=== PATIENT | male | born 1945 | race Caucasian/White ===

== ENCOUNTER 2019-12-03 10:15 | Emergency (ER) | payer MEDICARE, SELFPAY ==
--- NOTE | ~2019-12-03 | CT_ITS ---
EXAMINATION: CT abdomen pelvis wo con DATE: 12/03/2019 11:10 INDICATION: Left flank pain. Dysuria. TECHNIQUE: Computed tomography (CT) of the abdomen and pelvis was performed without intravenous contr ast. Automated exposure control and iterative reconstruction technique were employed. The dose-length product was 1175.56 mGy-cm. COMPARISON: CT abdomen and pelvis 10/26/2017 FINDINGS: The visualized portions of the lung bases demonstrate mild atelectasis on the left. No pleu ral effusion. The heart size is normal. There are coronary artery calcifications. No pericardial effu deborah. There are pacer wires in right atrium and right ventricle. The liver and spleen are normal. The re are changes of cholecystectomy. The pancreas, adrenal glands, and left kidney are normal. There is a 4 mm stone in right kidney. There is a 14 mm stone in right kidney with focal parenchymal volume l oss. There are no dilated loops of bowel. The appendix is not visualized. There is calcified atherosc lerosis of the aorta and many of the other arteries. There is a small sliding hiatal hernia. There is a diverticulum of the third portion of the duodenum. There are no pathologically enlarged lymph node s. There is no free intraperitoneal fluid. There is moderate lumbar spondylosis. There is a hemangiom a in L3 vertebral body. There are chronic compression fractures of T10 and L1. IMPRESSION: 1. Nonobstructing right kidney stones. Reviewed, dictated and finalized at location A.
[2019-12-03 10:18] VITALS: BP 170/87; PULSE 86; RESP 19; TEMP 36.7; O2SAT 99
[2019-12-03 10:37] LABS: Basophils Percent Auto 0.3 % (0.2-1.2); Eosinophils Absolute Auto 0.4 K/mm3 (0-0.3); Eosinophils Percent Auto 4.8 % (0-4.4); Hematocrit 43.1 % (42.0-52.0); Hemoglobin 13.8 g/dL (14.0-18.0); Immature Granulocyte Absolute 0.04 K/mm3 (0.00-0.031); Immature Granulocyte Percent A 0.5 % (0-0.5); Lymphocytes Absolute Auto 1.57 K/mm3 (0.9-3.2); Lymphocytes Percent Auto 20.6 % (18.3-44.2); Mean Corpuscular Hemoglobin 29.6 pg (26-34); Mean Corpuscular Volume 92.3 fl (80-100); Mean Platelet Volume 11.3 fl (7.4-10.4); Monocytes Absolute Auto 0.8 K/mm3 (0.1-0.6); Neutrophils Absolute Auto 4.9 K/mm3 (1.3-6.7); Neutrophils Percent Auto 63.8 % (45.5-73.1); Platelet Count Result 288 k/mm3 (150-375); Red Blood Count 4.67 M/mm3 (4.6-6.20); Red Cell Distribution Width 14.2 % (11.5-14.5); White Blood Count 7.6 K/mm3 (4.5-10.0)
--- NOTE | 2019-12-03 10:42 | ED.BACK ---
HPI - Back Pain/Injury General Chief Complaint: Back Pain/Injury Stated Complaint: L FLANK/RIB PAIN Time Seen by Provider: 12/03/19 10:17 Source: patient Mode of arrival: ambulatory Limitations: no limitations History of Present Illness HPI Narrative: This is a 74-year-old male that presents the emergency department for left flank pain x1 week. Reports it has been constant, is worse with movement. Also reports dysuria. Reports history of kidney stones. Denies fever, abdominal pain, nausea, vomiting, hematuria, weakness or numbness. Related Data Home Medications Medication Instructions Recorded Confirmed atorvastatin 12/03/19 gemfibrozil mg 12/03/19 lisinopril 12/03/19 metoprolol tartrate 12/03/19 omeprazole 12/03/19 tamsulosin mg PO 12/03/19 warfarin 12/03/19 Allergies Allergy/AdvReac Type Severity Reaction Status Date / Time codeine AdvReac Mild broke out Verified 12/03/19 10:29 and sweat Review of Systems Review of Systems: Narrative: CONSTITUTIONAL: Denies fever GASTROINTESTINAL: Denies abdominal pain, nausea, vomiting GENITOURINARY: Reports dysuria. Denies hematuria. MUSCULOSKELETAL: Reports back pain NEUROLOGIC: Denies numbness, or weakness. All systems reviewed & are unremarkable except as noted in HPI and below PMFSH Past Medical History Medical History (Updated 12/03/19 @ 12:15 by Zuleyma Grace PA-C) History of coronary artery disease History of gastroesophageal reflux (GERD) History of hyperlipidemia History of hypertension Surgical History Surgical History (Updated 12/03/19 @ 10:44 by Zuleyma Grace PA-C) History of coronary artery bypass graft Social History Social History Gender identity (if verbalized by the patient): Male Exam Narrative: Exam Narrative: GENERAL: Well-appearing, well-nourished, and in no acute distress. HEAD: Normocephalic, atraumatic. EYES: EOMI. CHEST: Clear to auscultation. No respiratory distress. No wheezes rales or rhonchi HEART: Regular rate and rhythm. No murmur heard. Normal peripheral pulses. ABDOMEN: Soft, nontender, nondistended, normal active bowel sounds. No CVA tenderness BACK: No midline spinal tenderness EXTREMITIES: Normal range of motion. No edema. Strength equal in bilateral lower extremities (5/5) SKIN: Warm, dry, no rash. NEURO: No focal deficits. Alert and oriented x3. Normal gait PSYCH: Normal mood and affect Course Vital Signs Vital signs: Vital Signs Temperature 98.1 F 12/03/19 10:18 Pulse Rate 86 12/03/19 10:18 Respiratory Rate 19 12/03/19 10:18 Blood Pressure 170/87 H 12/03/19 10:18 Pulse Oximetry 99 12/03/19 10:18 Temperature 98.1 F 12/03/19 10:18 Pulse Rate 86 12/03/19 10:18 Respiratory Rate 19 12/03/19 10:18 Blood Pressure 170/87 H 12/03/19 10:18 Pulse Oximetry 99 12/03/19 10:18 MDM - Back Pain/Injury MDM Narrative Medical decision making narrative: Patient presents the emergency department for left-sided flank pain x1 week. Also reported some discomfort with urination. Patient is afebrile and nontoxic-appearing. CBC is without leukocytosis. Metabolic panel without acute findings other than elevation in blood glucose to 237. UA without evidence of infection. CT the abdomen pelvis shows some nonobstructing right kidney stones. Patient updated on case findings. He was instructed to rest, use ice/heat and take [id number] pain medication as needed. He is to follow-up with primary care doctor. He was given warnings to return to the ER Lab Data Attestation: I reviewed the patient's lab results. Result diagrams: 12/03/19 10:32 12/03/19 10:32 Labs: Lab Results 12/03/19 12/03/19 12/03/19 Range/Units 10:32 10:32 10:36 WBC 7.6 (4.5-10.0) K/mm3 RBC 4.67 (4.6-6.20) M/mm3 Hgb 13.8 L (14.0-18.0) g/dL Hct 43.1 (42.0-52.0) % MCV 92.3 (80-100) fl MCH 29.6 (26-34) pg MCHC 32.0 (32-36) g/dl
[2019-12-03 10:45] LABS: Add Urine Microscopic? YES; Appearance Urine Clear (Clear); Bacteria Urine Trace /hpf; Bilirubin Urine Negative (Negative); Blood Urine Negative (Negative); Color Urine Straw (Yellow); Glucose Urine UA Negative (Negative); Ketones Urine Negative (Negative); Leukocyte Esterase Ur Trace LEU/UL (Negative); Nitrate Urine Negative (Negative); Protein Urine Negative (Negative); RBC Urine 0-2 /hpf (0-2); Specific Grav Ur 1.014 (1.001-1.035); Urobilinogen Urine Negative mg/dL (<2.0); WBC Urine 0-3 /hpf
[2019-12-03 10:50] LABS: Blood Urea Nitrogen 18 mg/dL (9-20); Carbon Dioxide 29 mmol/L (22-30); Chloride 101 mmol/L (98-107); Estimated Glomerular Filt Rate > 60; Glucose 237 mg/dL (75-110); Potassium 4.4 mmol/L (3.4-5.0); Sodium 136 mmol/L (137-145)
[2019-12-03] MEDS: ACETAMINOPHEN 500 MG TABLET 1000 MG PO (12:35)
[2019-12-03 12:42] VITALS: BP 152/68; PULSE 78; RESP 16; O2SAT 97
== END 2019-12-03 12:43 | disposition home or self-care (01) ==
PROVIDERS: Physician Assistant; Emergency Provider Emergency Medicine
DX: M54.5 Low back pain (principal); I25.10 Atherosclerotic heart disease of native coronary artery without angina pectoris; K21.9 Gastro-esophageal reflux disease without esophagitis; E78.5 Hyperlipidemia, unspecified; I10 Essential (primary) hypertension; Z95.1 Presence of aortocoronary bypass graft; N20.0 Calculus of kidney; Z87.442 Personal history of urinary calculi
CPT/HCPCS: 36415; 74176; 80048; 81001; 85025; 99284; A9270

== ENCOUNTER 2020-08-12 09:17 | Outpatient (CLI) | payer MEDICARE, SELFPAY ==
--- NOTE | ~2020-08-12 | XR_ITS ---
EXAMINATION: XR_CERV2-3V_CR EXAM DATE: 08/12/2020 09:45 INDICATION: Intractable headache, neck pain, dizziness. TECHNIQUE: Cervical spine frontal, lateral, lateral swimmers, and open-mouth odontoid projections. C omparison is made to prior examination from 12/14/2013. FINDINGS: There are large anteriorly base bridging endplate osteophytes. There is moderate disc dise ase at C5-6. The odontoid process is intact. The lateral masses of C1 line up with C2. Prevertebral soft tissue and pre-dens space are within normal limits. At least moderate cervical arthropathy. Mild cervical levoscoliosis. Pacemaker and sternotomy wires. IMPRESSION: Moderate cervical spondylosis. Mild levoscoliosis. Reviewed, dictated and finalized at location B. WELL SERVICES FIELD SUPERVISOR
--- NOTE | ~2020-08-12 | US_ITS ---
EXAMINATION: US carotid duplex BI DATE: 08/12/2020 10:04 INDICATION: Subjective visual disturbance. Vertigo. Carotid artery atherosclerosis. Headaches and di zziness TECHNIQUE: Grayscale, color Doppler, and pulsed Doppler images of the cervical carotid arteries were obtained. The degree of vessel stenosis is placed in one of the following categories: normal, <50%, 5 0-69%, >=70% but less than near-occlusion, near-occlusion, or total occlusion. Note that percent sten osis relative to normal distal artery lumen diameter is indirectly measured from velocity measurement s as described by Holger, et al. Radiology 2003; 229:340-346. COMPARISON: None. FINDINGS: RIGHT: The right common carotid artery (CCA) peak systolic velocity (PSV) is 55 cm/s. The right internal car otid artery (ICA) PSV is 55 cm/s. The right ICA end-diastolic velocity (EDV) is 17 cm/s. The right IC A/CCA PSV ratio is 1.0. Grayscale and color Doppler images yield an estimate of <50% diameter reducti on from plaque in the ICA. The external carotid artery (ECA) PSV is 98 cm/s. There is antegrade flow in the right vertebral artery. LEFT: The left CCA PSV is 67 cm/s. The left ICA PSV is 50 cm/s. The left ICA EDV is 9 cm/s. The left ICA/CC A PSV ratio is 0.8. Grayscale and color Doppler images yield an estimate of <50% diameter reduction f rom plaque in the ICA. The ECA PSV is 114 cm/s. There is antegrade flow in the left vertebral artery. IMPRESSION: 1. <50% stenosis in the right internal carotid artery. 2. <50% stenosis in the left internal carotid artery. Reviewed, dictated and finalized at location A. IR SERVICE CLERK
== END 2020-08-12 09:18 | disposition home or self-care (01) ==
DX: R51.9 Headache, unspecified (principal); M54.2 Cervicalgia; R42 Dizziness and giddiness; M47.812 Spondylosis without myelopathy or radiculopathy, cervical region; M41.82 Other forms of scoliosis, cervical region; I65.23 Occlusion and stenosis of bilateral carotid arteries
CPT/HCPCS: 72040; 93880

== ENCOUNTER 2021-06-25 13:03 | Emergency (ER) | payer MEDICARE, SELFPAY ==
[2021-06-25] VITALS (21 sets, daily range): BP systolic 141–196; BP diastolic 63–91; PULSE 65–105; RESP 13–23; TEMP 36.3; O2SAT 94–98
--- NOTE | ~2021-06-25 | CT_ITS ---
EXAMINATION: CTA chest PE protocol DATE: 06/25/2021 17:10 INDICATION: Shortness of breath TECHNIQUE: Computed tomography angiography (CTA) of the chest was performed with 100 mL Omnipaque-350 intravenous contrast timed to evaluate the pulmonary arteries. Coronal maximum intensity projection 3D-reconstructions were created by the technologist. The dose-length product (DLP) was 764.68 mGy-cm. Automated exposure control and iterative reconstruction technique were employed. COMPARISON: 09/28/2018 FINDINGS: The pulmonary arteries are well-opacified. No pulmonary embolism is identified. There is mi ld dependent atelectasis. No pleural effusion or pneumothorax is identified. Cardiomegaly is noted. T here is calcified coronary artery atherosclerosis. A dual-lead cardiac pacemaker of the left chest wa ll ends with leads in expected locations. There is a small sliding hiatal hernia. The gallbladder is surgically absent. There is mild thoracic spondylosis. IMPRESSION: 1. No pulmonary embolus identified. 2. Mild atelectasis. Reviewed, dictated and finalized at location F. MATION CLERK
--- NOTE | ~2021-06-25 | XR_ITS ---
EXAMINATION: XR chest 2V DATE: 06/25/2021 13:23 INDICATION: Chest pain. TECHNIQUE: Frontal and lateral views of the chest were obtained. COMPARISON: Chest 2 views 09/28/2018, CT abdomen and pelvis 12/03/2019 FINDINGS: There are airspace opacities in left lower lung zone. No pleural effusion or pneumothorax. The heart size is normal. Median sternotomy wires and mediastinal surgical clips are seen, likely fro m prior coronary artery bypass grafting. There is a left chest wall pacer with leads in the right atr ium and right ventricle. There is mild chronic anterior wedging of lower thoracic vertebral bodies. IMPRESSION: 1. Airspace opacities in left lower lung zone, consistent with atelectasis versus pneumonia. Reviewed, dictated and finalized at location A. POOL IMPRESSION: 1. Airspace opacities in left lower lung zone, consistent with atelectasis vers us pneumonia.
--- NOTE | 2021-06-25 13:04 | ECG_ITS ---
Measurements Intervals [place] Rate: 85 P: 102 MO: 217 QRS: 85 QRSD: 168 T: -81 QT: 398 QTc: 475 Interpretive Statements ATRIAL SENSE- ELECTRONIC VENTRICULAR PACEMAKER BASELINE ARTIFACT- I, III, AVR, AVL, AVF NO FURTHER INTERPRETATION IS POSSIBLE ATYPICAL ECG Electronically Signed On 06-25-2021 18:21:10 DIET COUNSELOR by Jan Tapia D.O.
[2021-06-25 13:23] LABS: Basophils Percent Auto 0.2 % (0.2-1.2); Eosinophils Absolute Auto 0.2 K/mm3 (0-0.3); Eosinophils Percent Auto 1.8 % (0-4.4); Hematocrit 43.3 % (42.0-52.0); Hemoglobin 14.5 g/dL (14.0-18.0); Immature Granulocyte Absolute 0.04 K/mm3 (0.00-0.031); Immature Granulocyte Percent A 0.5 % (0-0.5); Lymphocytes Absolute Auto 1.61 K/mm3 (0.9-3.2); Lymphocytes Percent Auto 19.5 % (18.3-44.2); Mean Corpuscular HGB Conc 33.5 g/dl (32-36); Mean Corpuscular Hemoglobin 30.8 pg (26-34); Mean Corpuscular Volume 91.9 fl (80-100); Mean Platelet Volume 10.5 fl (7.4-10.4); Monocytes Absolute Auto 0.8 K/mm3 (0.1-0.6); Monocytes Percent Auto 9.8 % (2.6-8.5); Neutrophils Absolute Auto 5.6 K/mm3 (1.3-6.7); Neutrophils Percent Auto 68.2 % (45.5-73.1); Platelet Count Result 269 k/mm3 (150-375); Red Blood Count 4.71 M/mm3 (4.6-6.20); Red Cell Distribution Width 13.4 % (11.5-14.5); White Blood Count 8.2 K/mm3 (4.5-10.0)
[2021-06-25 13:34] LABS: INR 1.6; Prothrombin Time 18.3 Seconds (11.1-14.7)
[2021-06-25 13:35] LABS: Partial Thromboplastin Time 29.2 SECONDS (22.3-36.8)
[2021-06-25 13:39] LABS: Alanine Aminotransferase 37 U/L (4-50); Albumin Level 4.3 g/dL (3.5-5.1); Alkaline Phosphatase 106 U/L (38-126); Anion Gap 10 mmol/L (8-16); Aspartate Amino Transferase 40 U/L (17-59); Bilirubin,Total 0.4 mg/dL (0.2-1.3); Blood Urea Nitrogen 14 mg/dL (9-20); Calcium 9.4 mg/dL (8.4-10.2); Carbon Dioxide 28 mmol/L (22-30); Chloride 99 mmol/L (98-107); Estimated CRCL calculation 98 ml/min; Estimated Glomerular Filt Rate > 60; Glucose 161 mg/dL (65-110); Lipase 183 U/L (23-300); Sodium 137 mmol/L (137-145)
[2021-06-25 13:51] LABS: Troponin I 0.021 ng/mL (0.000-0.034)
--- NOTE | 2021-06-25 14:22 | ED.CHESTPAIN ---
HPI - Chest Pain General Chief Complaint: Chest Pain Stated Complaint: chest pain Time Seen by Provider: 06/25/21 14:18 Source: patient Mode of arrival: ambulatory Limitations: no limitations History of Present Illness HPI narrative: Patient is a 75-year-old male complaining of chest pain, midsternal, tightness, was 6 out of 10, currently has no pain accompanied by shortness of breath that started today. Patient states that it episode of chest pain 3 days ago but resolved on its own today it was accompanied by shortness of breath, I cannot catch my breath . Patient states that he has been having body aches, cough and chills for the past few days. Patient states that he is vaccinated from [facility] [employer]. Related Data Home Medications Medication Instructions Recorded Confirmed lisinopril 10 mg DAILY 12/03/19 04/25/21 metoprolol tartrate 12.5 mg BID 12/03/19 04/25/21 omeprazole 20 mg DAILY 12/03/19 04/25/21 tamsulosin 0.4 mg PO DAILY 12/03/19 04/25/21 aspirin 81 mg tablet,delayed 81 mg PO DAILY 04/25/21 04/25/21 release atorvastatin 40 mg tablet 40 mg PO DAILY 04/25/21 04/25/21 sitagliptin 100 mg tablet 100 mg PO DAILY 04/25/21 04/25/21 warfarin 2 mg tablet 6 PO DAILY 04/25/21 04/25/21 ascorbic acid (vitamin C) [Vitamin 250 mg PO BID 06/25/21 C] omega-3 fatty acids-vitamin E 1,000 DAILY 06/25/21 [Fish Oil] warfarin 8 mg PO DAILY 06/25/21 Allergies Allergy/AdvReac Type Severity Reaction Status Date / Time codeine AdvReac Mild broke out Verified 04/25/21 14:13 and sweat Review of Systems Review of Systems: All systems reviewed & are unremarkable except as noted in HPI and below Constitutional: Constitutional: Denies excessive sweating, Denies fatigue, Denies fever(s), Denies headache(s), Denies lethargy, Denies malaise, Denies weakness and Denies weight loss Eyes: Eyes: Denies blurry vision, Denies change in vision and Denies loss of vision ENT: Denies dizziness, Denies ear discharge, Denies headache(s), Denies lip swelling, Denies epistaxis, Denies nasal congestion, Denies neck pain, Denies throat swelling and Denies tongue swelling Cardiovascular: Cardiovascular: Denies diaphoresis, Denies rapid heart rate, Denies edema, Denies irregular heart rhythm, Denies lightheadedness, Denies palpitations, Denies dyspnea and Denies dyspnea on exertion Respiratory: Respiratory: Denies chest congestion, Denies hemoptysis, Denies dyspnea and Denies dyspnea on exertion Gastrointestinal: Gastrointestinal: Denies abdominal pain, Denies melena, Denies hematochezia, Denies diarrhea, Denies nausea, Denies vomiting and Denies hematemesis Musculoskeletal: Musculoskeletal: Denies abnormal gait, Denies deformity, Denies joint swelling, Denies limited range of motion, Denies neck pain and Denies numbness Neurologic: Denies Abnormal speech present, Denies abnormal gait, Denies confusion, Denies dizziness, Denies headache(s), Denies focal weakness, Denies loss of vision, Denies numbness, Denies Other visual disturbances, Denies Sensory deficit (Neuro) and Denies weakness Psychiatric: Psychiatric: Denies confusion, Denies depression, Denies auditory hallucinations, Denies homicidal ideation and Denies suicidal ideation Endocrine: Endocrine: Denies cold intolerance, Denies excessive sweating, Denies fatigue, Denies heat intolerance and Denies palpitations Hematologic/Lymphatic: Hematologic/Lymphatic: Denies easy bleeding and Denies easy bruising Allergic/Immunologic: Allergic/Immunologic: Denies lip swelling, Denies throat swelling and Denies tongue swelling PMFSH Past Medical History Medical History BMI 31.0-31.9,adult Coronary artery disease Diarrhea Essential hypertension History of coronary artery disease History of gastroesophageal reflux (GERD) History of hyperlipidemia History of hypertension Macular degeneration Mixed hyperlipidemia Type 2 diabetes mellitus without complication
[2021-06-25] MEDS: ASPIRIN 81 MG CHEWABLE TABLET 324 MG PO (15:15)
[2021-06-25 16:28] LABS: Lactic Acid Reflex 0.9 mmol/L (0.7-2.1)
[2021-06-25 16:42] LABS: Troponin I 0.028 ng/mL (0.000-0.034)
--- NOTE | 2021-06-25 19:30 | PM.SD2 ---
Same Day Admit/Disch: HPI History of Present Illness Chief complaint: Chest Pain Narrative: This is a pleasant 75-year-old male with history of coronary artery disease, atrial fibrillation, hypertension, diabetes, GERD, and benign prostatic hyperplasia presented to the emergency department for evaluation of chest pain. This morning while doing nothing in particular he developed midsternal chest discomfort, perhaps a tightness sensation, associated with mild shortness of breath. He took a nitroglycerin but that did not seem to help. He goes on to say that he had a similar episode 3 days ago and the nitroglycerin helped at that time. With further questioning patient mentions that he has been having body aches, chills, and nonproductive cough. He did receive the COVID vaccination but was exposed to COVID last week. In fact his SARS-CoV-2 by PCR did come back positive. Three troponins were mildly elevated but still well within the normal limits. He does have a pacemaker thus making it difficult to interpret his EKG. I agree with the patient that his symptoms are unlikely to be cardiac related and are more likely related to COVID. The patient requested to be discharged home and I was okay with that as long as he had close follow-up with his cabin agent at [facility]. For some reason he was made to sign out against medical advice in the emergency department before I could get things arranged. [facility] Past Medical History Medical History (Updated 06/29/21 @ 23:53 by Carline Lawrence PA-C) Benign prostatic hyperplasia BMI 31.0-31.9,adult Coronary artery disease Diarrhea Essential hypertension History of coronary artery disease History of gastroesophageal reflux (GERD) History of hyperlipidemia History of hypertension Macular degeneration Mixed hyperlipidemia Type 2 diabetes mellitus without complications Surgical History Surgical History History of coronary artery bypass graft Family History Family History (Updated 06/29/21 @ 23:53 by Carline Lawrence PA-C) Other Diabetes mellitus Heart disease Hypertension Social History Social History (Updated 06/29/21 @ 23:53 by Carline Lawrence PA-C) Social History: Resides in [place] with his . Retired. Former smoker. Consumes alcohol socially and in moderation. No illicit substance use. Code status: Full code. Same Day Admit/Disch: Med Pre-admit Medications Home Medications Medication Instructions Recorded Confirmed Type lisinopril 10 mg DAILY 12/03/19 04/25/21 History metoprolol tartrate 12.5 mg BID 12/03/19 04/25/21 History omeprazole 20 mg DAILY 12/03/19 04/25/21 History tamsulosin 0.4 mg PO DAILY 12/03/19 04/25/21 History aspirin 81 mg tablet,delayed 81 mg PO DAILY 04/25/21 04/25/21 History release atorvastatin 40 mg tablet 40 mg PO DAILY 04/25/21 04/25/21 History sitagliptin 100 mg tablet 100 mg PO DAILY 04/25/21 04/25/21 History warfarin 2 mg tablet 6 PO DAILY 04/25/21 04/25/21 History ascorbic acid (vitamin C) [Vitamin 250 mg PO BID 06/25/21 History C] omega-3 fatty acids-vitamin E 1,000 DAILY 06/25/21 History [Fish Oil] warfarin 8 mg PO DAILY 06/25/21 History azithromycin 250 mg tablet See Rx Instructions PO .COMPLEX #6 06/26/21 Rx tablet Exam Narrative: General: Mildly ill-appearing male sitting up in bed. Weight: 100 kg. BMI: 29.9. HEENT: PERRL, EOMI. Sclerae anicteric. Oral mucosa moist. Oropharynx is mildly erythematous. Neck: Supple. No JVD or adenopathy. Respiratory: Respirations are nonlabored and he is speaking in full sentences. Lungs are clear to auscultation bilaterally. Cardiovascular: Regular rate and rhythm with S1-S2. Chest: Mild reproducible tenderness to palpation over the lower anterior chest, just left of center. Gastrointestinal: Abdomen is soft, nontender, and nondistended with positive bowel sounds. Skin: Warm and dry. No rash or lesio
--- NOTE | 2021-06-25 19:40 | PC.NURSE ---
Assumed care of pt at this time. Pt alert and upright on stretcher, denies pain. Pt updated on POC.
[2021-06-25 19:46] LABS: EDCOVIDSCREEN Positive (Negative)
[2021-06-25 19:48] LABS: Troponin I 0.032 ng/mL (0.000-0.034)
[2021-06-25 20:15] LABS: Glucose Point of Care 127 mg/dl (65-105)
== END 2021-06-25 21:09 | disposition left against medical advice (07) ==
LOC: ANHED 18:12 → ANH3MEDSUR 20:59
PROVIDERS: Internal Medicine; Emergency Provider Emergency Medicine; PCP Family Medicine
DX: U07.1 COVID-19 (principal); R07.89 Other chest pain; I25.10 Atherosclerotic heart disease of native coronary artery without angina pectoris; I10 Essential (primary) hypertension; E78.5 Hyperlipidemia, unspecified; H35.30 Unspecified macular degeneration; E78.2 Mixed hyperlipidemia; I25.2 Old myocardial infarction; E11.9 Type 2 diabetes mellitus without complications; K21.9 Gastro-esophageal reflux disease without esophagitis; Z79.82 Long term (current) use of aspirin; Z95.1 Presence of aortocoronary bypass graft; Z87.891 Personal history of nicotine dependence; Z95.0 Presence of cardiac pacemaker; Z79.01 Long term (current) use of anticoagulants; Z79.84 Long term (current) use of oral hypoglycemic drugs
CPT/HCPCS: 36415; 71046; 71275; 80053; 82948; 83605; 83690; 84484; 85025; 85610; 85730; 87040; 87426; 93005; 99284; A9270; C9803; Q9967

== ENCOUNTER 2021-07-13 10:00 | Outpatient (CLI) | payer MEDICARE, SELFPAY ==
--- NOTE | ~2021-07-13 | XR_ITS ---
EXAMINATION: XR chest 2V 07/13/2021 10:18 INDICATION: Covid infection PROCEDURE: 2 view chest COMPARISON: Comparison to multiple prior studies sequentially, with oldest reviewed study dated 07/18. FINDINGS: The lungs are clear. The cardiomediastinal silhouette is within normal limits. There are no pleural effusions. There is no pneumothorax suspected. There is chronic left basilar atelectasis /scarring. Pacemaker leads are stable. Status post median sternotomy for CABG. IMPRESSION: 1: NO ACUTE CARDIOPULMONARY DISEASE. Reviewed, dictated and finalized at location B. IMPLEMENTATION SPECIALIST
== END 2021-07-13 10:01 | disposition home or self-care (01) ==
LOC: ANHIMG 10:02
PROVIDERS: PCP Family Medicine; Visit Provider Nurse Practitioner Family
DX: R06.02 Shortness of breath (principal); U07.1 COVID-19
CPT/HCPCS: 71046

== ENCOUNTER 2021-12-14 14:41 | Emergency (ER) | payer MEDICARE, SELFPAY ==
--- NOTE | ~2021-12-14 | XR_ITS ---
EXAMINATION: XR chest 2V Exam Date/Time: 12/14/2021 15:20 CDT HISTORY: BURNING MEDIAL CHEST SENSATION, SOB, HX HTN Comparison: 07/13/2021. RESULT: Lines, tubes, and devices: Left chest pacer with intact leads. Intact sternotomy wires. Lungs and pleura: Clear. Cardiomediastinal silhouette: Stable cardiomediastinal silhouette. Other: No acute osseous or upper abdominal finding. IMPRESSION: No acute cardiopulmonary process. Reviewed, dictated and finalized at location K.
--- NOTE | 2021-12-14 14:44 | ECG_ITS ---
Measurements Intervals [place] Rate: 75 P: 37 MI: 235 QRS: 110 QRSD: 172 T: 137 QT: 433 QTc: 484 Interpretive Statements ELECTRONIC VENTRICULAR PACEMAKER ABNORMAL RHYTHM ECG COMPARED TO ECG 06/25/2021 13:08:56 NO SIGNIFICANT CHANGES Electronically Signed On 12-14-2021 22:48:19 CDT by Anaya Conrad M.D.
[2021-12-14 14:58] VITALS: BP 173/44; PULSE 74; RESP 16; TEMP 36.4; O2SAT 97
[2021-12-14 15:00] LABS: Basophils Percent Auto 0.1 % (0.2-1.2); Eosinophils Absolute Auto 0.2 K/mm3 (0-0.3); Eosinophils Percent Auto 2.2 % (0-4.4); Hemoglobin 14.5 g/dL (14.0-18.0); Immature Granulocyte Absolute 0.02 K/mm3 (0.00-0.031); Immature Granulocyte Percent A 0.2 % (0-0.5); Lymphocytes Absolute Auto 1.75 K/mm3 (0.9-3.2); Lymphocytes Percent Auto 18.5 % (18.3-44.2); Mean Corpuscular HGB Conc 32.2 g/dl (32-36); Mean Corpuscular Hemoglobin 29.7 pg (26-34); Mean Corpuscular Volume 92.2 fl (80-100); Mean Platelet Volume 10.8 fl (7.4-10.4); Monocytes Absolute Auto 0.9 K/mm3 (0.1-0.6); Monocytes Percent Auto 9.9 % (2.6-8.5); Neutrophils Absolute Auto 6.5 K/mm3 (1.3-6.7); Neutrophils Percent Auto 69.1 % (45.5-73.1); Platelet Count Result 303 k/mm3 (150-375); Red Blood Count 4.88 M/mm3 (4.6-6.20); Red Cell Distribution Width 14.3 % (11.5-14.5); White Blood Count 9.5 K/mm3 (4.5-10.0)
[2021-12-14 15:10] LABS: Alanine Aminotransferase 30 U/L (6-50); Albumin Level 4.4 g/dL (3.5-5.1); Alkaline Phosphatase 111 U/L (38-126); Anion Gap 5 mmol/L (8-16); Aspartate Amino Transferase 36 U/L (17-59); Bilirubin,Total 0.4 mg/dL (0.2-1.3); Blood Urea Nitrogen 20 mg/dL (9-20); Carbon Dioxide 32 mmol/L (22-30); Chloride 101 mmol/L (98-107); Estimated CRCL calculation 84 ml/min; Estimated Glomerular Filt Rate > 60; Glucose 122 mg/dL (65-110); Lipase 129 U/L (23-300); Sodium 138 mmol/L (137-145)
[2021-12-14 15:21] LABS: INR 1.5; Prothrombin Time 17.5 Seconds (11.1-14.7); Troponin I 0.016 ng/mL (0.000-0.034)
[2021-12-14 15:22] LABS: Partial Thromboplastin Time 30.1 SECONDS (22.3-36.8)
--- NOTE | 2021-12-14 18:14 | PC.NURSE ---
No answer when called for repeat labs and vital signs.
== END 2021-12-14 18:32 | disposition left against medical advice (07) ==
LOC: ANHED 18:23
PROVIDERS: Emergency Medicine; PCP Family Medicine
DX: R06.02 Shortness of breath (principal)
CPT/HCPCS: 36415; 71046; 80053; 83690; 84484; 85025; 85610; 85730; 93005; 99199

== ENCOUNTER 2022-03-25 09:50 | Emergency (ER) | payer MEDICARE, SELFPAY ==
[2022-03-25 10:00] VITALS: BP 184/75; PULSE 79; RESP 16; TEMP 36.3; O2SAT 100
--- NOTE | 2022-03-25 10:15 | ED.GENADULT ---
HPI - General Adult General Chief complaint: Dizziness Stated complaint: dizziness/shannon/ Time Seen by Provider: 03/25/22 10:16 Source: patient and RN notes reviewed Mode of arrival: ambulatory Limitations: no limitations History of Present Illness HPI narrative: 76-year-old male with a history of seen ED, CABG [id number] (2019), COPD, SC, pacer; presented for c/o headache, blurred vision, and difficulty walking this morning. Endorses feeling shaky and covered in sweat this morning. States turning his head to the right causes him to 'flip and jump.' States he feels like he is 'not getting blood to my brain.' Also reports decreased urine output. He has not taken his medication today. Currently denies chest pain, palpitations, increase shortness of breath, nausea, vomiting, diarrhea, fevers or chills. Denies numbness, tingling or weakness of extremities, facial droop or change in speech. States he had carotid US about 6 months ago, was told it was ok. Replaced pacer 12/2021 at [facility]. Related Data Home Medications Medication Instructions Recorded Confirmed metoprolol tartrate 25 mg tablet 12.5 mg BID 12/03/19 03/25/22 aspirin 81 mg tablet,delayed 81 mg PO DAILY 04/25/21 03/25/22 release (Adult Aspirin Regimen) atorvastatin 40 mg tablet 40 mg PO DAILY 04/25/21 03/25/22 warfarin 2 mg tablet 6 PO DAILY 04/25/21 03/13/22 ascorbic acid (vitamin C) 500 mg 250 mg PO BID 06/25/21 03/25/22 tablet (Vitamin C) omega-3 fatty acids-vitamin E 1,000 DAILY 06/25/21 03/13/22 1,000 mg capsule warfarin 2 mg tablet 8 mg PO DAILY 06/25/21 03/25/22 cetirizine 10 mg capsule (Zyrtec) 10 mg PO DAILY 10/26/21 03/25/22 Allergies Allergy/AdvReac Type Severity Reaction Status Date / Time fluticasone furoate AdvReac Severe tachycardia Verified 03/25/22 11:14 [From Trelegy Ellipta] umeclidinium AdvReac Severe tachycardia Verified 03/25/22 11:14 [From Trelegy Ellipta] vilanterol AdvReac Severe tachycardia Verified 03/25/22 11:14 [From [facility]] Review of Systems Review of Systems: CONSTITUTIONAL: Denies body aches, fever, chills, or sweats. EYES: reports visual changes, denies redness, or discharge. ENT: Denies rhinorrhea, congestion, sore throat, or otalgia. CARDIOVASCULAR: Denies chest pain, palpitations, or edema. RESPIRATORY: Denies cough or dyspnea. GASTROINTESTINAL: Denies abdominal pain, nausea, vomiting, or diarrhea. GENITOURINARY: Reports decreased UOP. Denies dysuria or hematuria. SKIN: Denies rash or wounds. MUSCULOSKELETAL:Reports low back pain NEUROLOGIC: Endorses headache, dizziness denies numbness, tingling, or weakness All systems reviewed & are unremarkable except as noted in HPI and below PMFSH Past Medical History Medical History Benign prostatic hyperplasia BMI 29.0-29.9,adult BMI 30.0-30.9,adult BMI 31.0-31.9,adult BMI greater than 30 Coronary artery disease Diarrhea Essential hypertension H/O cardiac pacemaker History of coronary artery disease History of gastroesophageal reflux (GERD) History of hyperlipidemia History of hypertension Macular degeneration Mixed hyperlipidemia Type 2 diabetes mellitus without complications Surgical History Surgical History History of coronary artery bypass graft Family History Family History Father Alzheimers disease Mother Heart disease Hypertension Sibling Breast cancer Other Diabetes mellitus Social History Social History Social History: Resides in [place] with his . Retired. Former smoker. Consumes alcohol socially and in moderation. No illicit substance use. Code status: Full code. Smoking status: Former smoker (quit 1988 after SC.) Tobacco type: cigarettes Second h
--- NOTE | 2022-03-25 10:29 | ECG_ITS ---
Measurements Intervals [place] Rate: 73 P: 195 [place]: 122 QRS: 137 QRSD: 141 T: 79 QT: 425 QTc: 469 Interpretive Statements ELECTRONIC ATRIAL PACEMAKER ELECTRONIC VENTRICULAR PACEMAKER ABNORMAL RHYTHM ECG COMPARED TO ECG 03/25/2022 10:25:38 NO SIGNIFICANT CHANGES Electronically Signed On 03-26-2022 10:12:00 CDT by Luis Ochoa M.D.
== END 2022-03-25 10:33 | disposition short-term general hospital (02) ==
PROVIDERS: Emergency Provider Nurse Practitioner Family; PCP Family Medicine
DX: R51.9 Headache, unspecified (principal); R25.1 Tremor, unspecified; Z87.891 Personal history of nicotine dependence; I25.10 Atherosclerotic heart disease of native coronary artery without angina pectoris; I10 Essential (primary) hypertension; K21.9 Gastro-esophageal reflux disease without esophagitis; E78.5 Hyperlipidemia, unspecified; E11.9 Type 2 diabetes mellitus without complications; E78.2 Mixed hyperlipidemia; Z95.0 Presence of cardiac pacemaker; Z95.1 Presence of aortocoronary bypass graft; J44.9 Chronic obstructive pulmonary disease, unspecified
CPT/HCPCS: 93005; 99213; G0463

== ENCOUNTER 2022-03-25 10:49 | Observation (INO) | payer MEDICARE, SELFPAY ==
[2022-03-25] VITALS (27 sets, daily range): BP systolic 128–176; BP diastolic 56–86; PULSE 70–107; RESP 9–29; TEMP 36.4–36.6; O2SAT 95–100; BMI 29.7
--- NOTE | ~2022-03-25 | CT_ITS ---
EXAMINATION: CTA brain carotid DATE: 03/25/2022 14:31 INDICATION: dizziness, acute headache, TECHNIQUE: Computed tomographic angiography (CTA) of the head was performed without and with 100 mL O mnipaque-350 intravenous contrast. CTA of the neck was performed with intravenous contrast. The dose- length product was 1815.09 mGy-cm. Maximum intensity projection and volume rendered 3D-reconstruction s were created by the technologist on a separate workstation. COMPARISON: 10/11/2017. FINDINGS: CT BRAIN: No acute large vessel infarct, intracranial hemorrhage, mass, or hydrocephalus. Mild atrophy and data collection technician isa white matter change. Atherosclerotic intracranial calcification. 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 Bilateral lens replacements. CTA HEAD: No large vessel occlusion, aneurysm, high flow vascular malformation, nidus or extravasation. CTA NECK: Aortic arch and proximal great vessels: Bovine arch. Mild atherosclerotic calcifications at the visua lized aortic arch and proximal great vessels. Right common carotid, carotid bifurcation, and internal carotid artery: There is calcified plaque at the carotid bulb.There is 29% stenosis of the proximal right internal carotid artery relative to norm al distal artery lumen diameter (NASCET criteria). Left common carotid, carotid bifurcation, and internal carotid artery: Mild calcified plaque at the c arotid bulb.There is 0% stenosis of the proximal left internal carotid artery relative to normal dist al artery lumen diameter (NASCET criteria). Vertebral arteries: Short segment calcified plaque at the vertebral artery origins, causing severe st enosis on the left and mild stenosis on the right scattered calcified plaques in the distal vertebral arteries bilaterally, without significant stenosis. Slight right vertebral artery dominance. Other findings: Senescent changes in the lungs. Degenerative changes in the cervical spine. Chronic b ilateral maxillary sinusitis. IMPRESSION: No CT evidence of acute large vessel infarct. No large vessel occlusion. No significant carotid steno sis. Severe stenosis at the left vertebral artery origin. Reviewed, dictated and finalized at location K. IMPRESSION: No CT evidence of acute large vessel infarct. No large vessel occlusion. No sig nificant carotid stenosis. Severe stenosis at the left vertebral artery origin.
--- NOTE | ~2022-03-25 | XR_ITS ---
EXAMINATION: XR chest 2V 03/25/2022 12:50 INDICATION: Dizziness. Headache. PROCEDURE: 2 view chest COMPARISON: Comparison to multiple prior studies sequentially, with oldest reviewed study dated 09/28. FINDINGS: The lungs are clear. There are no pleural effusions. There is no pneumothorax suspected. Status post median sternotomy for CABG. Cardiomegaly. There is an upper lumbar compression fracture which is chronic. IMPRESSION: 1: NO ACUTE CARDIOPULMONARY DISEASE. Reviewed, dictated and finalized at location A.
--- NOTE | 2022-03-25 11:52 | ECG_ITS ---
Measurements Intervals [place] Rate: 70 P: 20 LA: 126 QRS: 119 QRSD: 142 T: 71 QT: 435 QTc: 470 Interpretive Statements SIGNIFICANT ARTIFACT, POOR ECG QUALITY ELECTRONIC ATRIAL PACEMAKER ELECTRONIC VENTRICULAR PACEMAKER ABNORMAL RHYTHM ECG INTERPRETATION BASED ON A DEFAULT AGE OF 40 YEARS COMPARED TO ECG 12/14/2021 14:48:27 NO SIGNIFICANT CHANGES Electronically Signed On 03-26-2022 10:11:03 CDT by Luis Ochoa M.D.
[2022-03-25 12:50] LABS: Basophils Percent Auto 0.3 % (0.2-1.2); Eosinophils Absolute Auto 0.1 K/mm3 (0-0.3); Eosinophils Percent Auto 1.6 % (0-4.4); Hematocrit 43.4 % (42.0-52.0); Hemoglobin 14.6 g/dL (14.0-18.0); Immature Granulocyte Absolute 0.02 K/mm3 (0.00-0.031); Immature Granulocyte Percent A 0.3 % (0-0.5); Lymphocytes Absolute Auto 1.32 K/mm3 (0.9-3.2); Lymphocytes Percent Auto 17.3 % (18.3-44.2); Mean Corpuscular HGB Conc 33.6 g/dl (32-36); Mean Corpuscular Hemoglobin 30.5 pg (26-34); Mean Corpuscular Volume 90.8 fl (80-100); Mean Platelet Volume 11.3 fl (7.4-10.4); Monocytes Absolute Auto 0.8 K/mm3 (0.1-0.6); Monocytes Percent Auto 10.9 % (2.6-8.5); Neutrophils Absolute Auto 5.3 K/mm3 (1.3-6.7); Neutrophils Percent Auto 69.6 % (45.5-73.1); Platelet Count Result 260 k/mm3 (150-375); Red Blood Count 4.78 M/mm3 (4.6-6.20); Red Cell Distribution Width 13.5 % (11.5-14.5); White Blood Count 7.6 K/mm3 (4.5-10.0)
--- NOTE | 2022-03-25 12:51 | ED.GENADULT ---
HPI - General Adult General Chief complaint: Headache Stated complaint: DELA CRUZ, blurry vision Time Seen by Provider: 03/25/22 11:59 Source: patient, RN notes reviewed and old records reviewed Mode of arrival: ambulatory Limitations: no limitations History of Present Illness HPI narrative: This is a 76 year old male with history of hypertension, CAD s/p CABG 2019, pacemaker, and COPD who presents for evaluation of multiple complaints. Patient states he has had intermittent diarrhea and constipation for 2 weeks. He states he would normally have 2 normal bowel movements per day. Over the past 2 weeks, he will have normal bowel movement during they day and 5 minutes later he will have watery stool. His last bowel movement was 2 days ago. He also reports some rectal soreness, but denies rectal bleeding or hemorrhoids. He also denies abdominal pain, nausea, vomiting. He also reports increased urgency to urinate at night and will dribble. He was able to urinate today without difficulty. He already has diagnosis of BPH and he states he takes prostate medication . He is also complaining of dizziness and headache that started this morning. He woke up at 6 am this morning. He rolled onto his right side and he states he developed frontal headache and right neck pain with dizziness. He describes his dizziness as lightheadedness like everything was going black. He denies associated diplopia, focal weakness or difficulty walking. He states his headache has improved. HE took 2 aspirin at home prior to arrival. Related Data Home Medications Medication Instructions Recorded Confirmed metoprolol tartrate 25 mg tablet 12.5 mg PO BID 12/03/19 03/25/22 aspirin 81 mg tablet,delayed 81 mg PO DAILY 04/25/21 03/25/22 release (Adult Aspirin Regimen) atorvastatin 40 mg tablet 40 mg PO DAILY 04/25/21 03/25/22 warfarin 2 mg tablet 6 mg PO DAILY 04/25/21 03/25/22 ascorbic acid (vitamin C) 500 mg 250 mg PO BID 06/25/21 03/25/22 tablet (Vitamin C) omega-3 fatty acids-vitamin E 1,000 cap PO DAILY 06/25/21 03/25/22 1,000 mg capsule warfarin 2 mg tablet 8 mg PO DAILY 06/25/21 03/25/22 Allergies Allergy/AdvReac Type Severity Reaction Status Date / Time fluticasone furoate AdvReac Severe tachycardia Verified 03/25/22 18:28 [From Trelegy Ellipta] umeclidinium AdvReac Severe tachycardia Verified 03/25/22 18:28 [From Trelegy Ellipta] vilanterol AdvReac Severe tachycardia Verified 03/25/22 18:28 [From Trelegy Ellipta] Review of Systems Review of Systems: All systems reviewed & are unremarkable except as noted in HPI and below Constitutional: Constitutional: Denies chills, Reports fatigue and Denies fever(s) ENT: Denies nasal congestion and Denies sore throat Cardiovascular: Cardiovascular: Reports chest pain (chronic at site of cabg and pacemaker) and Denies radiating jaw, neck or arm pain Respiratory: Respiratory: Reports cough (chronic since covid in june) and Denies dyspnea Gastrointestinal: Gastrointestinal: Denies abdominal pain, Reports constipation, Reports diarrhea, Denies nausea and Denies vomiting Genitourinary: Genitourinary: Reports oliguria, Denies dysuria and Reports urinary frequency Musculoskeletal: Musculoskeletal: Denies back pain Neurologic: Denies vertigo, Reports dizziness, Reports headache(s), Denies focal weakness and Denies numbness [facility] Past Medical History Medical History Benign prostatic hyperplasia BMI 29.0-29.9,adult BMI 30.0-30.9,adult BMI 31.0-31.9,adult BMI greater than 30 Coronary artery disease Diarrhea Essential hypertension H/O cardiac pacemaker History of coronary artery disease History of gastroesophageal reflux (GERD) History of hyperlipidemia History of hypertension Macular degeneration Mixed hyperlipidemia Type 2 diabetes mellitus without complications Surgical History Surgical History (Reviewed 03/25/22 @
[2022-03-25 13:01] LABS: INR 2.1; Prothrombin Time 22.9 Seconds (11.1-14.7)
[2022-03-25 13:02] LABS: Partial Thromboplastin Time 33.5 SECONDS (22.3-36.8)
[2022-03-25 13:06] LABS: Lipase 115 U/L (23-300); Magnesium 1.6 mg/dL (1.6-2.3)
[2022-03-25 13:06] LABS: Add Urine Microscopic? YES; Appearance Urine Clear (Clear); Bacteria Urine Trace /hpf; Bilirubin Urine Negative (Negative); Blood Urine Negative (Negative); Color Urine Yellow (Yellow); Glucose Urine UA Negative (Negative); Ketones Urine Negative (Negative); Leukocyte Esterase Ur Trace LEU/UL (Negative); Nitrate Urine Negative (Negative); Protein Urine Negative (Negative); Specific Grav Ur 1.014 (1.001-1.035); Urobilinogen Urine Negative mg/dL (<2.0); WBC Urine 0-3 /hpf
[2022-03-25 13:09] LABS: Alanine Aminotransferase 41 U/L (6-50); Albumin Level 4.3 g/dL (3.5-5.1); Alkaline Phosphatase 135 U/L (38-126); Anion Gap 7 mmol/L (8-16); Aspartate Amino Transferase 37 U/L (17-59); Bilirubin,Total 0.6 mg/dL (0.2-1.3); Blood Urea Nitrogen 21 mg/dL (9-20); Calcium 8.9 mg/dL (8.4-10.2); Carbon Dioxide 30 mmol/L (22-30); Chloride 100 mmol/L (98-107); Estimated CRCL calculation 96 ml/min; Estimated Glomerular Filt Rate > 60; Glucose 143 mg/dL (65-110); Potassium 3.8 mmol/L (3.4-5.0); Sodium 137 mmol/L (137-145)
[2022-03-25] MEDS: SODIUM CHLORIDE 0.9% IV 1,000 ML 999 ML IV CONT (13:17)
[2022-03-25 13:19] LABS: Troponin I < 0.012 ng/mL (0.000-0.034)
--- NOTE | 2022-03-25 18:00 | ADMGEN ---
This patient, Antonio Fuentes, was admitted to Medical Room 258-01. Patient/family oriented to hospital policies and general routines including ID bracelet, bed and alarms, visiting hours, pain management, procedures, bathroom and other care routines, personal items, smoking policy, room service/diet, and visiting hours. Information on how to activate the Rapid Response Team has been discussed. Patient/Family are encouraged to report perceived risks to care and to ask questions if they do not understand what they are told or what they should do.
[2022-03-25 18:37] LABS: Glucose Point of Care 213 mg/dl (65-105)
--- NOTE | 2022-03-25 20:35 | PM.IMHP ---
H&P: HPI History of Present Illness Date/Time: 03/25/22 20:35 Chief Complaint: dizziness Narrative: This is a 76-year-old male with past medical history significant for hypertension, type 2 diabetes mellitus, GERD, benign prostatic hyperplasia, atrial fibrillation, rate controlled anticoagulated. patient presents to the emergency room after having episode of dizziness, vertigo, lightheadedness, near-syncope when getting out of the bed patient went back to bed and upon standing had recurrence of the episode decided to come to the emergency room for evaluation last time patient was seen normal was the night before. Patient states that he blacked out however no incontinence of if enters no jerky movements, no focal sensorimotor deficit. preliminary workup was significant for CTA of brain and brainstem was reported as: IMPRESSION: No CT evidence of acute large vessel infarct. No large vessel occlusion. No significant carotid stenosis. Severe stenosis at the left vertebral artery origin. Review of Systems Review of Systems: dizziness, near-syncope, lightheadedness, upon standing in the morning Constitutional: Constitutional: Denies chills, Denies fatigue, Denies fever(s), Denies malaise, Denies night sweats and Reports weakness Eyes: Eyes: Denies change in vision ENT: Denies dysphagia, Reports vertigo, Reports dizziness and Denies odynophagia Cardiovascular: Cardiovascular: Reports lightheadedness, Denies radiating jaw, neck or arm pain, Denies palpitations, Denies dyspnea on exertion and Reports other ( near-syncope) Respiratory: Respiratory: Denies cough, Denies pain on inspiration, Denies dyspnea and Denies dyspnea on exertion Gastrointestinal: Gastrointestinal: Denies abdominal pain, Denies dyspepsia, Denies heartburn, Denies diarrhea, Denies nausea and Denies vomiting Genitourinary: Genitourinary: Denies dysuria Musculoskeletal: Musculoskeletal: Reports muscle weakness Integumentary/Breasts: Skin/Breast: Denies rash Neurologic: Reports dizziness, Denies focal weakness and Denies Sensory deficit (Neuro) Psychiatric: Psychiatric: Reports no additional psychiatric complaints and Reports as per HPI Endocrine: Endocrine: Denies cold intolerance, Denies fatigue, Denies flushing, Denies heat intolerance, Denies polyphagia, Denies polydipsia and Denies palpitations Hematologic/Lymphatic: Hematologic/Lymphatic: Reports no additional hematologic/lymphatic complaints and Reports as per HPI Allergic/Immunologic: Allergic/Immunologic: Reports no additional allergic/immunologic complaints and Reports as per HPI [facility] Past Medical History Medical History (Updated 03/26/22 @ 03:55 by Jose Chen MD) Benign prostatic hyperplasia BMI 29.0-29.9,adult BMI 30.0-30.9,adult BMI 31.0-31.9,adult BMI greater than 30 Coronary artery disease Diarrhea Essential hypertension H/O cardiac pacemaker History of coronary artery disease History of gastroesophageal reflux (GERD) History of hyperlipidemia History of hypertension Macular degeneration Mixed hyperlipidemia Type 2 diabetes mellitus without complications Surgical History Surgical History History of coronary artery bypass graft Family History Family History Father Alzheimers disease Mother Heart disease Hypertension Sibling Breast cancer Other Diabetes mellitus Social History Social History Social History: Resides in [place] with his . Retired. Former smoker. Consumes alcohol socially and in moderation. No illicit substance use. Code status: Full code. Smoking packs per day: 3 Smoking cigarettes per day: 60.0 Years smoked: 37 Smoking pack-years: 111.00 Smoking status: Former smoker Tobacco type: cigarettes Second hand tobacco smok
[2022-03-25 20:37] LABS: Glucose Point of Care 172 mg/dl (65-105)
[2022-03-26] VITALS (11 sets, daily range): BP systolic 152–185; BP diastolic 55–66; PULSE 70–84; RESP 16–18; TEMP 36.4–36.9; O2SAT 94–96
[2022-03-26 06:18] LABS: Creatine Kinase 64 U/L (55-170)
[2022-03-26] MEDS: SODIUM CHLORIDE 0.9% IV 1,000 ML 999 ML IV CONT (07:22)
[2022-03-26 08:48] LABS: Glucose Point of Care 114 mg/dl (65-105)
[2022-03-26] MEDS: OMEGA 3 POLYUNSAT FATTY ACIDS 1 GM CAP PO (09:27)
[2022-03-26] MEDS: PANTOPRAZOLE 40 MG TABLET PO (09:27)
[2022-03-26] MEDS: METOPROLOL TARTRATE 12.5 MG TABLET PO (09:27)
[2022-03-26] MEDS: TAMSULOSIN HCL 0.4 MG CAPSULE PO (09:27)
[2022-03-26] MEDS: ASCORBIC ACID 250 MG TABLET PO (09:28)
[2022-03-26] MEDS: hydroCHLOROthiazide 12.5 MG CAPSULE PO (09:28)
[2022-03-26] MEDS: ATORVASTATIN 40 MG TABLET PO (09:28)
[2022-03-26] MEDS: lisinopriL 20 MG TABLET PO (09:28)
[2022-03-26] MEDS: ASPIRIN 81 MG ENTERIC TABLET PO (09:28)
[2022-03-26 11:43] LABS: Glucose Point of Care 143 mg/dl (65-105)
--- NOTE | 2022-03-26 12:34 | WPDNEURCNPN ---
Assessment and Plan Assessment and plan (1) Vertebral artery stenosis: Code(s): I65.09 - Occlusion and stenosis of unspecified vertebral artery Status: Acute (2) Dizziness: Code(s): R42 - Dizziness and giddiness Status: Acute Plan 1 benign paroxysmal positional vertigo for which patient has been taking the medication intermittently and has normal neurological examination at this stage 2. Uncontrolled hypertension 3. Diabetes mellitus 3. Left vertebral artery stenosis for which patient is on anticoagulation therapy will continue as such will discuss with the primary physician as well though continue anticoagulation therapy Consult date: 03/31/22 Time Seen: 11:30 HPI: Antonio Fuentes is a 76 year old male 76 years old right-handed male has been admitted to [facility] through the emergency room where he presented with a history of 1. Hypertension 2. Coronary artery disease for which he has undergone CABG in [address] 4. COPD neurology consultation has been obtained because patient had been complaining of dizziness and headache with the information he woke up at 6:00 a.m. in the morning he rolled over to the right side developed severe headache and dizziness with explanation that he became lightheaded and everything was going black with no associated diplopia weakness of 1 or other side patient does have ongoing history of benign paroxysmal vertigo in the past has been taking the Antivert on p.r.n. basis in addition his medications also included the Coumadin 8 mg daily because of left vertebral artery stenosis and atorvastatin 40 mg daily aspirin 81 mg daily he is a former smoker smoking pack years of 111 but stopped smoking in December 16, 1988 and former alcohol intake a never substance user initial examination in the emergency room was normal so as the vital signs except the blood pressure 170/72 routine labs were normal blood sugar was 143, chest x-ray negative CTA negative except the severe stenosis at the left vertebral artery origin and EKG without atrial fibrillation Review of Systems Review of Systems: All systems reviewed & are unremarkable except as noted in HPI and below [facility] Past Medical History Medical History (Updated 03/29/22 @ 07:48 by Felecia Guerrero PA-C) Benign prostatic hyperplasia BMI 29.0-29.9,adult BMI 30.0-30.9,adult BMI 31.0-31.9,adult BMI greater than 30 Coronary artery disease Diarrhea Essential hypertension H/O cardiac pacemaker History of coronary artery disease History of gastroesophageal reflux (GERD) History of hyperlipidemia History of hypertension Macular degeneration Mixed hyperlipidemia Type 2 diabetes mellitus without complications Surgical History Surgical History History of coronary artery bypass graft Family History Family History Father Alzheimers disease Mother Heart disease Hypertension Sibling Breast cancer Other Diabetes mellitus Social History Social History Social History: Resides in [place] with his . Retired. Former smoker. Consumes alcohol socially and in moderation. No illicit substance use. Code status: Full code. 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
[2022-03-26] MEDS: MECLIZINE HCL 25 MG TABLET PO (13:05)
--- NOTE | 2022-03-26 16:05 | PM.DS ---
DS: Admitting Diagnosis Discharge Date 03/26/2022 Admitting Diagnosis Dizziness DS: Discharge Diagnosis Discharge Diagnosis (1) Dizziness: Code(s): R42 - Dizziness and giddiness Status: Acute Assessment and Plan: Patient presented with dizziness. Head/neck CTA showed no evidence of acute large vessel infarct or occlusion, no significant carotid stenosis. Unable to obtain MRI due to pacemaker. Patient seen and evaluated by Neurology, symptoms felt to be secondary to BPPV. Symptoms improved with meclizine which the patient can continue as needed for dizziness. (2) Coronary artery disease: Qualifiers: Coronary Disease-Associated Artery/Lesion type: [place] artery [place] vs. transplanted heart: [place] heart Associated angina: without angina Qualified Code(s): I25.10 - Atherosclerotic heart disease of [place] coronary artery without angina pectoris Code(s): I25.10 - Atherosclerotic heart disease of [place] coronary artery without angina pectoris Status: Acute Assessment and Plan: No acute issues. Continue aspirin (3) Essential hypertension: Code(s): I10 - Essential (primary) hypertension Status: Acute Assessment and Plan: Blood pressures reviewed and were slightly elevated in the 150s-160s systolic. Continue lisinopril-hydrochlorothiazide and metoprolol. Encouraged to monitor blood pressures at home and follow-up with PCP in 1-2 weeks for blood pressure check. (4) Type 2 diabetes mellitus without complications: Qualifiers: Diabetes mellitus half-way insulin use: without half-way use Qualified Code(s): E11.9 - Type 2 diabetes mellitus without complications Code(s): E11.9 - Type 2 diabetes mellitus without complications Status: Acute Assessment and Plan: Last A1c in November was 6.7. Blood sugars monitor during admission with Accu-Cheks, sliding scale insulin, hypoglycemic protocol. Continue home metformin. (5) Diarrhea: Qualifiers: Diarrhea type: functional diarrhea Qualified Code(s): K59.1 - Functional diarrhea Code(s): R19.7 - Diarrhea, unspecified Status: Acute Assessment and Plan: Chronic issue, changed. Follow-up with PCP in consider outpatient GI referral (6) Vertebral artery stenosis: Code(s): I65.09 - Occlusion and stenosis of unspecified vertebral artery Status: Acute Assessment and Plan: Severe left vertebral artery stenosis noted on CTA. Patient aware and states this is being managed by his PCP. Continue warfarin. INR therapeutic at 2.1. DS: Summary Hospital Course Hospital Course: Date of admission: 03/25/2022 Date of discharge: 03/26/2022 Antonio Fuentes is a 76-year-old male with a history of type 2 diabetes mellitus, hypertension, hyperlipidemia, GERD, CAD s/p CABG in 2019, pacemaker who presented to the emergency department on 03/25/2022 with complaints of dizziness with onset that morning. On presentation to the ED, his vital signs were stable, he was afebrile, CBC and BMP unremarkable, INR 2.1, CXR with no acute findings, and head/neck CTA with no evidence of acute infarct or occlusion. He was admitted to the hospitalist service for further evaluation management was seen in consultation by Neurology. Please see above for further details. Patient was feeling improved, back to his usual state of health and dizziness had resolved. Continue meclizine as needed for dizziness. Given patient's overall improvement, he was very eager for discharge home and was determined to no longer require inpatient care. Discussed with patient and his worrisome signs and symptoms for which to return and he was educated on his medications. He was discharged in hemodynamically stable condition on 03/26/2022 Time Spent with Patient Time attestation: Total time spent providing and/or coordinating discharge services: 43 minutes Exam Narrative
== END 2022-03-26 16:45 | disposition home or self-care (01) ==
LOC: ANHED 12:29 → ANH2MED 17:23
PROVIDERS: Internal Medicine; Admitting Provider Hospitalist; Emergency Provider General Practice; PCP Family Medicine; Visit Provider Hospitalist
DX: R42 Dizziness and giddiness (principal); I65.02 Occlusion and stenosis of left vertebral artery; I25.10 Atherosclerotic heart disease of native coronary artery without angina pectoris; Z95.1 Presence of aortocoronary bypass graft; I10 Essential (primary) hypertension; E11.9 Type 2 diabetes mellitus without complications; R19.7 Diarrhea, unspecified; Z95.0 Presence of cardiac pacemaker; J44.9 Chronic obstructive pulmonary disease, unspecified; K62.89 Other specified diseases of anus and rectum; N40.0 Benign prostatic hyperplasia without lower urinary tract symptoms; H35.30 Unspecified macular degeneration; E78.5 Hyperlipidemia, unspecified; R94.31 Abnormal electrocardiogram [ECG] [EKG]; K21.9 Gastro-esophageal reflux disease without esophagitis; I48.91 Unspecified atrial fibrillation; M62.81 Muscle weakness (generalized); F10.90 Alcohol use, unspecified, uncomplicated; Z87.19 Personal history of other diseases of the digestive system; Z87.891 Personal history of nicotine dependence; Z79.82 Long term (current) use of aspirin; Z79.01 Long term (current) use of anticoagulants; Z79.84 Long term (current) use of oral hypoglycemic drugs; Z79.899 Other long term (current) drug therapy
CPT/HCPCS: 36415; 70496; 70498; 71046; 80053; 81001; 82550; 82948; 83690; 83735; 84484; 85025; 85610; 85730; 93005; 96360; 97161; 97165; 99213; 99285; A9270; G0378; G0463; J7030; Q9967

== ENCOUNTER → 2022-06-13 11:05 | Outpatient (CLI) | payer MEDICARE, SELFPAY ==
--- NOTE | ~2022-06-13 | XR_ITS ---
Thoracic spine: Clinical Indication: Pain AP and lateral views were performed. No fracture is seen. There is normal alignment of the vertebrae. The intervertebral disc spaces appe ar normal. Paravertebral soft tissues appear normal. Impression: No significant abnormalities noted. Reviewed, dictated and finalized at [facility]. UTER MECHANIC Impression: No significant abnormalities noted.
--- NOTE | ~2022-06-13 | XR_ITS ---
AP view of the pelvis and AP and lateral views of the left hip Clinical history: Pain Findings: No acute fracture or dislocation is seen. Osseous alignment is anatomic. Bilateral hip and SI joint spaces are preserved. Soft tissues are unremarkable. Impression: No significant abnormality is seen. Reviewed, dictated and finalized at [facility]. OR NETWORK ADMINISTRATOR Impression: No significant abnormality is seen.
--- NOTE | ~2022-06-13 | XR_ITS ---
Lumbosacral Spine: AP and lateral views Clinical History: Pain Findings: The normal lordotic curve is maintained. Stable mild compression deformity of L1. Advanced facet joint degenerative changes at L4-L5 and L5-S1 are present. The sacroiliac joints are normally o utlined. Impression: Stable mild compression deformity of L1. Severe facet joint degenerative change at L4-L5 and L5-S1. Reviewed, dictated and finalized at location . MAN Impression: Stable mild compression deformity of L1. Severe facet joint degenerative change at L4-L5 and L5-S1.
--- NOTE | ~2022-06-13 | XR_ITS ---
Cervical Spine: AP, lateral, open-mouth views Clinical History: Pain Findings: The normal lordotic curve is maintained. The vertebral bodies and posterior elements appea r intact. The intervertebral disc spaces are well maintained. Extensive anterior marginal osteophyte s are present. Pre-vertebral soft tissues are unremarkable. Impression: No acute abnormality. Extensive anterior osteophytes. Reviewed, dictated and finalized at [facility]. UNIT TEACHER Impression: No acute abnormality. Extensive anterior osteophytes.
== END ==
PROVIDERS: PCP Family Medicine; Visit Provider Physician Assistant Medical
DX: M25.552 Pain in left hip (principal); G89.29 Other chronic pain; M54.2 Cervicalgia; M54.6 Pain in thoracic spine; M54.50 Low back pain, unspecified; M25.78 Osteophyte, vertebrae; M48.56XA Collapsed vertebra, not elsewhere classified, lumbar region, initial encounter for fracture; M85.88 Other specified disorders of bone density and structure, other site
CPT/HCPCS: 72040; 72070; 72100; 73502

== ENCOUNTER 2023-04-16 15:23 | Outpatient (CLI) | payer MEDICARE, SELFPAY ==
--- NOTE | ~2023-04-16 | XR_ITS ---
XR chest 2V 04/16/2023 15:40 Indication: Biventricular cardiac pacemaker. Chest pain. Procedure: 2 view chest Comparison: Comparison to multiple prior studies sequentially, with oldest reviewed study dated 01/2022. Findings: Status post median sternotomy for CABG. Biventricular pacemaker leads in the right atrium a nd right ventricle respectively, position unchanged. No focal air space disease, pulmonary edema, ple ural effusion or suspected pneumothorax. Impression: 1: No acute cardiopulmonary disease. Reviewed, dictated and finalized at location A. Impression: 1: No acute cardiopulmonary disease.
== END 2023-04-16 15:24 | disposition home or self-care (01) ==
PROVIDERS: PCP Family Medicine; Visit Provider Internal Medicine Cardiovascular Disease
DX: G89.18 Other acute postprocedural pain (principal); Z95.0 Presence of cardiac pacemaker
CPT/HCPCS: 71046

== ENCOUNTER 2023-04-26 07:29 | Outpatient (CLI) | payer MEDICARE, SELFPAY ==
--- NOTE | ~2023-04-26 | CT_ITS ---
Clinical Indication: Chest pain CT Scan of the Chest with Contrast: Technique: Contiguous sections were acquired throughout the chest after intravenous administration of 75 cc of Omnipaque 350. Dose reduction technique was used on this scan by utilizing automated exposu re control and iterative reconstruction technique. The dose-length product (DLP) was 407.70 mGy-cm. COMPARISON: 06/25/2021 Findings: There is no evidence of any significant mediastinal, hilar or axillary lymphadenopathy. No central pu lmonary embolus identified. There is no evidence of aortic dissection or aneurysm. Extensive coronary artery calcifications are present. Pacemaker device present. There is no evidence of pleural or pericardial effusion. The lungs are clear. No pulmonary nodules or infiltrates are noted. Images through the upper abdomen reveal no abnormalities. Impression: Clear lungs. No significant abnormality seen. Reviewed, dictated and finalized at [facility]. DENTIAL MORTGAGE MANAGER Impression: Clear lungs. No significant abnormality seen.
[2023-04-26 07:54] LABS: Estimated Glomerular Filt Rate > 60
== END 2023-04-26 07:30 | disposition home or self-care (01) ==
LOC: ANHIMG 07:31
PROVIDERS: PCP Family Medicine; Visit Provider Nurse Practitioner Adult Health
DX: R07.9 Chest pain, unspecified (principal)
CPT/HCPCS: 71260; Q9967

== ENCOUNTER 2023-10-11 01:08 | Day surgery (SDC) | payer MEDICARE, SELFPAY ==
[2023-10-03 14:20] VITALS: BMI 29.6
[2023-10-11 09:16] VITALS: BP 174/87; PULSE 80; RESP 20; TEMP 36.1; O2SAT 96
[2023-10-11] MEDS: LACTATED RINGERS 1,000 ML 150 ML IV CONT (09:20)
[2023-10-11 09:25] LABS: Glucose Point of Care 143 mg/dl (65-105)
[2023-10-11 09:28] LABS: Prothrombin Time 13.8 Seconds (11.1-14.7)
[2023-10-11 09:29] LABS: Partial Thromboplastin Time 26.6 Seconds (22.3-36.8)
--- NOTE | 2023-10-11 09:40 | WPDANESEPPF ---
Anes - Initial Pre Proc Eval Procedure: Operation Date: 10/11/23 10:00 Proposed Procedures p Screening Colonoscopy - José Bryan DO Date/Time: 10/11/23 09:40 Surgeon: José Bryan DO Pre Op Diagnosis: Screening for malignant neoplasm of colon Patient Data Age: 77 Gender: M Height: 1.83 m Weight: 100.2 kg Last Vital Signs Temp 97 F L 10/11/23 09:16 Pulse 80 10/11/23 09:16 Resp 20 10/11/23 09:16 BP 174/87 H 10/11/23 09:16 Pulse Ox 96 10/11/23 09:16 O2 Del Method Room Air 10/11/23 09:16 Allergies Allergy/AdvReac Type Severity Reaction Status Date / Time fluticasone furoate AdvReac Severe tachycardia Verified 10/11/23 08:49 [From Trelegy Ellipta] umeclidinium AdvReac Severe tachycardia Verified 10/11/23 08:49 [From Trelegy Ellipta] vilanterol AdvReac Severe tachycardia Verified 10/11/23 08:49 [From Trelegy Ellipta] Home Medications Medication Instructions Recorded Confirmed Type aspirin 81 mg tablet,delayed 81 mg PO DAILY 04/25/21 10/03/23 History release (Adult Aspirin Regimen) omeprazole 20 mg capsule,delayed 20 mg PO DAILY #100 caps 09/06/22 10/03/23 Rx release atorvastatin 40 mg tablet 40 mg PO DAILY #90 tabs 08/06/23 10/03/23 Rx blood sugar diagnostic (OneTouch #100 ea 08/12/23 09/19/23 Rx Ultra Test strips) metformin 500 mg tablet 500 mg PO DAILY #90 tabs 08/25/23 10/03/23 Rx tamsulosin 0.4 mg capsule (Flomax) 0.4 mg PO DAILY #30 caps 09/19/23 10/03/23 Rx metoprolol tartrate 25 mg tablet 25 mg PO BID #180 tabs 10/01/23 10/03/23 Rx amlodipine 10 mg-benazepril 20 mg 1 cap PO DAILY 10/03/23 10/03/23 History capsule nitroglycerin 0.4 mg sublingual 0.4 mg DIRECTED 10/03/23 10/03/23 History tablet warfarin 2 mg tablet 2 mg PO DAILY 10/03/23 10/03/23 History warfarin 6 mg tablet 6 mg PO DIRECTED 10/03/23 10/11/23 History Laboratory Tests 10/11/23 10/11/23 09:00 09:12 PT 13.8 Seconds (11.1-14.7) INR 1.0 APTT 26.6 Seconds (22.3-36.8) POC Capillary Glucose 143 H mg/dl (65-105) Patient hx anesthesia problems: none Family hx anesthesia problems: none Results Review: All pre-operative results and documents have been reviewed as part of the pre-operative evaluation. [facility] Past Medical History Medical History Benign prostatic hyperplasia BMI 29.0-29.9,adult BMI 30.0-30.9,adult BMI 31.0-31.9,adult BMI greater than 30 Coronary artery disease Diarrhea Essential hypertension H/O cardiac pacemaker History of coronary artery disease History of gastroesophageal reflux (GERD) History of hyperlipidemia History of hypertension Left arm pain Macular degeneration Mixed hyperlipidemia Type 2 diabetes mellitus without complications Surgical History Surgical History History of coronary artery bypass graft Family History Family History Father Alzheimers disease Mother Heart disease Hypertension Sibling Breast cancer Other Diabetes mellitus Social History Social History Social History: Resides in [place] with his . Retired. Former smoker. Consumes alcohol socially and in moderation. No illicit substance use. Code status: Full code. Smoking packs per day: 3 Smoking cigarettes per day: 60.0 Years smoked: 37 Smoking pack-years: 111.00 Smoking status: Former smoker Tobacco type: cigarettes Second hand tobacco smoke exposure: No Smoking end date: 12/16/88 Alcohol intake: former Substance use: never Substance use type: does not use Lack of Transportation: No Lack of Food: Never True Current Housing: I Have Housing Concerned About Future Housing: No Difficulty Paying Gas/Electric Bills:
--- NOTE | 2023-10-11 10:24 | PM.IMHP ---
H&P: HPI History of Present Illness Date/Time: 10/11/23 10:24 Chief Complaint: history of colon polyps Narrative: this is a 77-year-old man who presents for colonoscopy. His last was about 18 years ago. He says that he had 17 polyps removed at that time. He did not have a follow-up colonoscopy after that. He denies any hematochezia melena. He denies family history of colon cancer. Review of Systems Review of Systems: All systems reviewed & are unremarkable except as noted in HPI and below Constitutional: Constitutional: Denies chills, Denies fever(s), Denies headache(s) and Denies weight loss Eyes: Eyes: Denies change in vision ENT: Denies dizziness, Denies headache(s), Denies neck mass and Denies throat swelling Cardiovascular: Cardiovascular: Denies chest pain, Denies lightheadedness and Denies dyspnea Respiratory: Respiratory: Denies cough, Denies dyspnea and Denies wheezing Gastrointestinal: Gastrointestinal: Denies abdominal pain, Denies change in bowel habits, Denies nausea and Denies vomiting Genitourinary: Genitourinary: Denies hematuria and Denies dysuria Musculoskeletal: Musculoskeletal: Reports as per HPI Integumentary/Breasts: Skin/Breast: Reports as per HPI Neurologic: Denies dizziness and Denies headache(s) Allergic/Immunologic: Allergic/Immunologic: Denies throat swelling and Denies wheezing [facility] Past Medical History Medical History Benign prostatic hyperplasia BMI 29.0-29.9,adult BMI 30.0-30.9,adult BMI 31.0-31.9,adult BMI greater than 30 Coronary artery disease Diarrhea Essential hypertension H/O cardiac pacemaker History of coronary artery disease History of gastroesophageal reflux (GERD) History of hyperlipidemia History of hypertension Left arm pain Macular degeneration Mixed hyperlipidemia Type 2 diabetes mellitus without complications Surgical History Surgical History History of coronary artery bypass graft Family History Family History Father Alzheimers disease Mother Heart disease Hypertension Sibling Breast cancer Other Diabetes mellitus Social History Social History Social History: Resides in [place] with his . Retired. Former smoker. Consumes alcohol socially and in moderation. No illicit substance use. Code status: Full code. Smoking packs per day: 3 Smoking cigarettes per day: 60.0 Years smoked: 37 Smoking pack-years: 111.00 Smoking status: Former smoker Tobacco type: cigarettes Second hand tobacco smoke exposure: No Smoking end date: 12/16/88 Alcohol intake: former Substance use: never Substance use type: does not use Lack of Transportation: No Lack of Food: Never True Current Housing: I Have Housing Concerned About Future Housing: No Difficulty Paying Gas/Electric Bills: No Difficulty Paying for Meds: No Currently Unemployed: No Education: High School Diploma/GED Difficulty w/ Childcare or Family Care: No Living arrangements: with family Occupation/Education: retired 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 Gender identity (if verbalized by the patient): Male Spiritual care concerns: No Meds Home Medications and Allergies Home Medications Medication Instructions Recorded Confirmed Type aspirin 81 mg tablet,delayed 81 mg PO DAILY 04/25/21 10/03/23 History release (Adult Aspirin Regimen) omeprazole 20 mg capsule,delayed 20 mg PO DAILY #100 caps 09/06/22 10/03/23 Rx release atorvastatin 40 mg tablet 40 mg PO DAILY #90 tabs 08/06/23 10/03/23 Rx blood sugar diagnostic (OneTouch #100 ea 08/12/23 09/19/23 Rx Ultra Test strips) metformin 500 mg tablet 500 mg PO DAILY #90 tabs 08/25/23 10/03/23 Rx tamsulosin
[2023-10-11 11:11] VITALS: BP 85/41; PULSE 71; RESP 22; O2SAT 95
[2023-10-11 11:21] VITALS: BP 105/57; PULSE 71; RESP 15; O2SAT 96
[2023-10-11 11:31] VITALS: BP 134/71; PULSE 71; RESP 17; O2SAT 97
== END 2023-10-11 11:40 | disposition home or self-care (01) ==
PROVIDERS: PCP Family Medicine; Visit Provider Surgery
PROC: 0DJD8ZZ Inspection of Lower Intestinal Tract, Via Natural or Artificial Opening Endoscopic (ICD-10-PCS; CPT 45378; principal; 2023-10-11 10:00)
DX: Z12.11 Encounter for screening for malignant neoplasm of colon (principal); D12.2 Benign neoplasm of ascending colon; D12.3 Benign neoplasm of transverse colon; I10 Essential (primary) hypertension; E78.2 Mixed hyperlipidemia; E11.9 Type 2 diabetes mellitus without complications; K21.9 Gastro-esophageal reflux disease without esophagitis; N40.0 Benign prostatic hyperplasia without lower urinary tract symptoms; I25.10 Atherosclerotic heart disease of native coronary artery without angina pectoris; E66.9 Obesity, unspecified; Z68.30 Body mass index [BMI] 30.0-30.9, adult; Z79.82 Long term (current) use of aspirin; Z79.84 Long term (current) use of oral hypoglycemic drugs; Z79.01 Long term (current) use of anticoagulants; Z95.0 Presence of cardiac pacemaker; Z95.1 Presence of aortocoronary bypass graft; Z87.891 Personal history of nicotine dependence; Z80.3 Family history of malignant neoplasm of breast; Z82.49 Family history of ischemic heart disease and other diseases of the circulatory system
CPT/HCPCS: 45385; 36415; 82948; 85610; 85730; 88305; J2001; J2371; J2704; J7120

== ENCOUNTER 2024-04-09 05:19 | Emergency (ER) | payer MEDICARE, SELFPAY ==
--- NOTE | ~2024-04-09 | CT_ITS ---
EXAMINATION: CT abdomen pelvis w con DATE: 04/09/2024 07:13 INDICATION: Abdominal pain. TECHNIQUE: Computed tomography (CT) of the abdomen and pelvis was performed with 100 mL Omnipaque 350 intravenous contrast. Automated exposure control and iterative reconstruction technique were employe d. The dose-length product was 1595.39 mGy-cm. COMPARISON: CT abdomen and pelvis 12/03/2019 FINDINGS: The visualized portions of the lung bases demonstrate minimal atelectasis. No pleural effus ion. The heart size is normal. There are coronary artery calcifications. There are changes of coronar y artery bypass grafting. No pericardial effusion. There are pacer wires in right atrium, right ventr icle, and coronary sinus. There is a small sliding hiatal hernia. The liver and spleen are normal. Th ere are changes of cholecystectomy. The pancreas and adrenal glands are normal. There is cortical thi nning of the kidneys. There is a 18 mm stone in right kidney. The prostate is mildly enlarged. The bl adder is distended. There are no dilated loops of bowel. The appendix is not visualized. There is favio cified atherosclerosis of the aorta and many of the other arteries. There are no pathologically enlar ged lymph nodes. There is an umbilical hernia containing fat. There is no free intraperitoneal fluid. There are bridging endplate osteophytes at multiple levels in the spine, consistent with diffuse idi opathic skeletal hyperostosis (DISH). There is a hemangioma in L3 vertebral body. There is chronic he ight loss of multiple vertebral bodies. There is severe lumbar spondylosis. IMPRESSION: 1. Small sliding hiatal hernia. 2. Umbilical hernia containing fat. Reviewed, dictated and finalized at location A.
--- NOTE | ~2024-04-09 | CT_ITS ---
EXAMINATION: CT brain wo con DATE: 04/09/2024 07:12 INDICATION: Dizziness. TECHNIQUE: Computed tomography (CT) of the head was performed without intravenous contrast. The mA wa s adjusted according to patient size. Iterative reconstruction technique was employed. The dose-lengt h product was 756.67 mGy-cm. COMPARISON: Head CT 03/25/2022 FINDINGS: There are scattered areas of low attenuation in the cerebral white matter, which is within normal limits for the patient's age. There is no intracranial hemorrhage, acute infarction, or abnorm al intracranial mass lesion. The ventricles are normal in size. There are likely changes of ocular le ns replacement surgeries. There is mucosal thickening in the paranasal sinuses. There is thickening a nd sclerosis of the noe of the maxillary sinuses with volume loss. The mastoid air cells are normal . IMPRESSION: 1. Normal aging brain. 2. Chronic sinusitis. Reviewed, dictated and finalized at location A.
[2024-04-09 05:18] VITALS: BP 150/69; PULSE 98; RESP 16; TEMP 35.7; O2SAT 97
--- NOTE | 2024-04-09 05:26 | ECG_ITS ---
Test Date: 2024-04-09 05:26:36 Measurements Intervals [place] Rate: 70 P: 250 WV: 123 QRS: 103 QRSD: 197 T: 153 QT: 480 QTc: 521 Interpretive Statements ELECTRONIC ATRIAL PACEMAKER ELECTRONIC VENTRICULAR PACEMAKER ATYPICAL ECG No previous ECG available for comparison Electronically Signed On 04-09-2024 10:22:55 CDT by Jeison Brewster M.D.
[2024-04-09] MEDS: MECLIZINE HCL 25 MG TABLET PO (05:47)
[2024-04-09 06:13] LABS: Basophils Percent Auto 0.2 % (0.2-1.2); Eosinophils Absolute Auto 0.3 K/mm3 (0-0.3); Eosinophils Percent Auto 3.7 % (0-4.4); Hematocrit 43.3 % (42.0-52.0); Immature Granulocyte Absolute 0.02 K/mm3 (0.00-0.031); Immature Granulocyte Percent A 0.2 % (0-0.5); Lymphocytes Absolute Auto 3.04 K/mm3 (0.9-3.2); Lymphocytes Percent Auto 36.4 % (18.3-44.2); Mean Corpuscular HGB Conc 32.3 g/dl (32-36); Mean Corpuscular Hemoglobin 30.7 pg (26-34); Mean Platelet Volume 11.9 fl (7.4-10.4); Monocytes Absolute Auto 1.1 K/mm3 (0.1-0.6); Monocytes Percent Auto 13.3 % (2.6-8.5); Neutrophils Absolute Auto 3.9 K/mm3 (1.3-6.7); Neutrophils Percent Auto 46.2 % (45.5-73.1); Platelet Count Result 261 k/mm3 (150-375); Red Blood Count 4.56 M/mm3 (4.6-6.20); Red Cell Distribution Width 13.2 % (11.5-14.5); White Blood Count 8.4 K/mm3 (4.5-10.0)
[2024-04-09 06:29] LABS: Alanine Aminotransferase 27 U/L (6-50); Alkaline Phosphatase 149 U/L (38-126); Anion Gap 10 mmol/L (4-12); Aspartate Amino Transferase 29 U/L (17-59); Bilirubin,Total 0.8 mg/dL (0.2-1.3); Blood Urea Nitrogen 15 mg/dL (9-20); Calcium 8.8 mg/dL (8.4-10.2); Carbon Dioxide 28 mmol/L (22-30); Chloride 100 mmol/L (98-107); Estimated CRCL calculation 104 ml/min; Estimated Glomerular Filt Rate > 60; Glucose 193 mg/dL (65-110); Lipase 103 U/L (23-300); Potassium 3.1 mmol/L (3.4-5.0); Sodium 138 mmol/L (137-145)
--- NOTE | 2024-04-09 06:44 | ED.DIZZY ---
HPI - Dizziness General Chief Complaint: Dizziness <Keaton Brown MD - Last Filed: 04/10/24 05:30> Stated Complaint: Dizzy/confusion upon waking, cool diaphoretic <Keaton Brown MD - Last Filed: 04/10/24 05:30> Time Seen by Provider: 04/09/24 05:32 <Keaton Brown MD - Last Filed: 04/10/24 05:30> History of Present Illness HPI Narrative: Patient is a 78-year-old male who presents to the emergency department this morning complaining of severe dizziness. Patient states that he woke up from sleep and the whole room was spinning. Patient got very nauseous and states that he has not had any vomiting episodes but feels though he is going to vomit. Patient states that he has to have vertigo over 10 years ago and was prescribed Antivert for it but has not had any issues with his vertigo for 10 years. Patient also states that this feels slightly different. He also is complaining of generalized abdominal pain and states that for the past week or so he has not had a normal bowel movement. His significant other recently suffered a stroke and he has been taking care of the 2 of them lately and they have been eating a lot of frozen dinners which could be contributing to his symptoms. He denies any dysuria or hematuria but states that he has been going to the bathroom frequently. <Keaton Brown MD - Last Filed: 04/10/24 05:30> Related Data Home Medications: Home Medications Medication Instructions Recorded Confirmed aspirin 81 mg tablet,delayed 81 mg PO DAILY 04/25/21 01/22/24 release (Adult Aspirin Regimen) amlodipine 10 mg-benazepril 20 mg 1 cap PO DAILY 10/03/23 01/22/24 capsule nitroglycerin 0.4 mg sublingual 0.4 mg DIRECTED 10/03/23 01/22/24 tablet warfarin 2 mg tablet 2 mg PO DAILY 10/03/23 01/22/24 warfarin 6 mg tablet 6 mg PO DIRECTED 10/03/23 01/22/24 <Keaton Brown MD - Last Filed: 04/10/24 05:30> Allergies/Adverse Reactions: Allergies Allergy/AdvReac Type Severity Reaction Status Date / Time fluticasone furoate AdvReac Severe tachycardia Verified 04/09/24 05:37 [From Trelegy Ellipta] umeclidinium AdvReac Severe tachycardia Verified 04/09/24 05:37 [From Trelegy Ellipta] vilanterol AdvReac Severe tachycardia Verified 04/09/24 05:37 [From Trelegy Ellipta] <Keaton Brown MD - Last Filed: 04/10/24 05:30> Review of Systems Review of Systems: All systems are reviewed and are negative unless stated otherwise in the HPI. <Keaton Brown MD - Last Filed: 04/10/24 05:30> PMFSH Past Medical History Medical History: Medical History Benign prostatic hyperplasia BMI 29.0-29.9,adult BMI 30.0-30.9,adult BMI 31.0-31.9,adult BMI greater than 30 Coronary artery disease Diarrhea Essential hypertension H/O cardiac pacemaker History of coronary artery disease History of gastroesophageal reflux (GERD) History of hyperlipidemia History of hypertension Left arm pain Macular degeneration Mixed hyperlipidemia Type 2 diabetes mellitus without complications <Keaton Brown MD - Last Filed: 04/10/24 05:30> Surgical History Surgical History: Surgical History History of coronary artery bypass graft <Keaton Brown MD - Last Filed: 04/10/24 05:30> Family History Family History: Family History Father Alzheimers disease Mother Heart disease Hypertension Sibling Breast cancer Other Diabetes mellitus <Keaton Brown MD - Last Filed: 04/10/24 05:30> Social History Social History: Social History Social History: Resides in [place] with his . Retired. Former smoker. Consumes alcohol socially and in moderation. No illicit subs
[2024-04-09] MEDS: POTASSIUM CHLORIDE 20 MEQ PACKET (FOR LIQUID) 40 MEQ PO (06:55)
[2024-04-09 07:35] LABS: Magnesium 1.8 mg/dL (1.6-2.3)
[2024-04-09 07:41] LABS: Add Urine Microscopic? YES; Appearance Urine Clear (Clear); Bacteria Urine None Seen /hpf; Bilirubin Urine Negative (Negative); Blood Urine Negative (Negative); Color Urine Yellow (Yellow); Glucose Urine UA Trace mg/dL (Negative); Ketones Urine 1+ mg/dL (Negative); Leukocyte Esterase Ur Trace LEU/UL (Negative); Nitrate Urine Negative (Negative); Non Pathogenic Casts 0-2; Protein Urine Negative (Negative); RBC Urine 0-2 /hpf (0-2); Specific Grav Ur 1.019 (1.001-1.035); Squamous Epithelial Cell Urine None Seen /hpf (Few); Urobilinogen Urine 0.2 mg/dL (<2.0); WBC Urine 0-5 /hpf (0-3)
[2024-04-09 07:43] VITALS: BP 138/67; PULSE 93; RESP 12; O2SAT 94
[2024-04-09] MEDS: ONDANSETRON INJ 4 MG/2 ML VIAL IV PUSH (07:52)
[2024-04-09 09:38] VITALS: BP 125/61; PULSE 78; RESP 20; O2SAT 97
[2024-04-09 10:09] VITALS: BP 145/77; PULSE 72; RESP 22; O2SAT 96
== END 2024-04-09 10:17 | disposition home or self-care (01) ==
PROVIDERS: Emergency Provider Emergency Medicine; PCP Family Medicine
DX: R42 Dizziness and giddiness (principal); I25.10 Atherosclerotic heart disease of native coronary artery without angina pectoris; N40.0 Benign prostatic hyperplasia without lower urinary tract symptoms; I10 Essential (primary) hypertension; E78.2 Mixed hyperlipidemia; E11.9 Type 2 diabetes mellitus without complications; Z95.0 Presence of cardiac pacemaker; H35.30 Unspecified macular degeneration; Z87.891 Personal history of nicotine dependence
CPT/HCPCS: 36415; 70450; 74177; 80053; 81001; 83690; 83735; 85025; 93005; 96374; 99284; A9270; J2405; Q9967

== ENCOUNTER 2024-12-23 09:31 | Emergency (ER) | payer MEDICARE, SELFPAY ==
--- NOTE | 2024-12-23 09:32 | ED_ITS ---
HPI - URI/Sore Throat General Chief Complaint: Upper Respiratory Infection Stated Complaint: cough/shallow breathing Time Seen by Provider: 12/23/24 09:32 Source: patient Mode of arrival: ambulatory Limitations: no limitations History of Present Illness HPI Narrative: Patient is an 79-year-old male who presents with 2 months of worsening cough and shortness of breath with exertion. Patient has been on amoxicillin in July and in October. Patient is also on prednisone and states his symptoms started to improve but worsened as soon as he stopped medications. Patient denies any fever, chills, nausea, vomiting, diarrhea. 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 Patient also reports neck pain and hip pain that he has been seen by PCP for. States he has taken Tylenol, ibuprofen and aspirin with only partial relief of symptoms. Denies any new vision changes, history of macular degeneration. Denies any numbness, tingling or weakness to extremities. Attempted to go see PCP today but was told there is no appointment and come to urgent care. Related Data Home Medications ?Medication ?Instructions ?Recorded ?Confirmed ?Last Taken ?Type aspirin 81 mg tablet,delayed 81 mg PO DAILY 04/25/21 11/11/24 Unknown History release (Adult Aspirin Regimen) warfarin 2 mg tablet 2 mg PO DAILY 10/03/23 11/11/24 Unknown History warfarin 6 mg tablet 6 mg PO DIRECTED 10/03/23 11/11/24 10/05/23 09:00 History Allergies Allergy/AdvReac Type Severity Reaction Status Date / Time fluticasone furoate (From AdvReac Severe tachycardia Verified 12/23/24 09:35 Trelegy Ellipta) umeclidinium (From Trelegy AdvReac Severe tachycardia Verified 12/23/24 09:35 Ellipta) vilanterol (From Trelegy AdvReac Severe tachycardia Verified 12/23/24 09:35 Ellipta) Review of Systems Review of Systems: All systems reviewed & are unremarkable except as noted in HPI and below Constitutional: Constitutional: Denies chills, Reports fatigue, Denies fever(s), Reports headache(s), Reports malaise and Denies weakness Eyes: Eyes: Denies blurry vision, Denies itchy eyes and Denies loss of vision ENT: Denies otalgia, Reports headache(s), Reports nasal congestion, Denies sinus pain and Denies sore throat Cardiovascular: Cardiovascular: Denies chest pain, Denies irregular heart rhythm and Denies dyspnea Respiratory: Respiratory: Reports cough and Reports dyspnea on exertion Gastrointestinal: Gastrointestinal: Denies abdominal pain, Denies diarrhea, Denies nausea and Denies vomiting Musculoskeletal: Musculoskeletal: Denies back pain, Denies myalgias and Denies arthralgias Integumentary/Breasts: Skin/Breast: Denies pruritus and Denies rash Neurologic: Reports headache(s), Denies loss of vision and Denies weakness Psychiatric: Psychiatric: Reports no additional psychiatric complaints Endocrine: Endocrine: Denies fatigue Allergic/Immunologic: Allergic/Immunologic: Denies itchy eyes PMFSH Past Medical History Medical History Left arm pain H/O cardiac pacemaker Benign prostatic hyperplasia Diarrhea Mixed hyperlipidemia Macular degeneration Coronary artery disease Essential hypertension BMI 31.0-31.9,adult Type 2 diabetes mellitus without complications History of gastroesophageal reflux (GERD) History of hyperlipidemia History of hypertension History of coronary artery disease Surgical History Surgical History History of coronary artery bypass graft Family History Family History Father Alzheimers disease Mother Heart disease Hypertension Sibling Breast cancer Other Diabetes mellitus Social History Social History Social History: Resides in [place] with his . 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 Former smoker. Consumes alcohol socially and in moderation. No illicit substance use. Code status: Full code. Smoking packs per day: 3 Smoking cigarettes per day: 60.0 Years smoked: 37 Smoking pack-years: 111.00 Smoking status: Former smoker Tobacco type: cigarettes Second hand tobacco smoke exposure: No Smoking end date: 12/16/88 Alcohol intake: former Substance use: never Substance use type: does not use Lack of Transportation: No Lack of Food: Never True Current Housing: I Have Housing Concerned About Future Housing: No Difficulty Paying Gas/Electric Bills: No Difficulty Paying for Meds: No Currently Unemployed: No Education: High School Diploma/GED Difficulty w/ Childcare or Family Care: No Living arrangements: with family Occupation/Education: retired 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 There is no relevant family history pertinent to the presenting complaint. Exam Const: General: cooperative, healthy appearing, comfortable, no acute distress and well nourished Nutritional Appearance: well nourished Orientation/consciousness: patient oriented x3 Limitations: no limitations HENMT: Head: normal to inspection, normocephalic and atraumatic Ears: hearing grossly normal bilaterally, external ears normal, TM's normal bilaterally, EAC's normal and no periauricular adenopathy Face/Nose/Sinus: Normal external nose present, Abnormal mucous membranes and turbinates present erythematous bilateral and diffuse, normal facial exam, sinuses nontender and face symmetric Face and sinus: normal facial exam, sinuses nontender and face symmetric Mouth: Yes Normal oral and palatal mucosa present, Yes lip normal, Yes tongue normal, Yes Normal salivary glands and ducts present, Yes oropharynx normal and Yes moist mucous membranes Teeth and gingiva: dentition normal Throat: posterior oropharynx normal, tonsils normal and uvula midline Eyes: General: appearance normal, both eyes and all related structures Alignment and Position: alignment normal and position normal Periorbital: periorbital findings normal Eyelids: eyelids normal Pupils: Equal, round and reactive pupils present Neck: Neck: normal visual inspection, full ROM, no lymphadenopathy and supple Chest: Chest palpation & inspection: normal inspection of the chest and normal palpation of entire chest wall Resp: Effort & Inspection: normal respiratory effort and able to speak in complete sentences Auscultation: no crackles, no rales, no rhonchi and wheezes expiratory wheezes and throughout Cardio: Rate: regular rate Rhythm: regular rhythm Heart sounds: S1 normal heart sound present and S2 normal heart sound present GI: Inspection: normal to inspection Skin: General skin exam: normal color and no rashes or lesions noted Neuro: General: patient oriented x3, moves all extremities and no meningeal signs Cranial nerves: Yes Equal, round and reactive pupils present Cognition (Neuro): normal cognition Speech: normal speech Gait exam (Neuro): Normal gait present Motor exam (neuro): 5/5 motor strength present throughout, Normal motor muscle tone present throughout and Motor abnormalities not present Sensory Exam: normal sensation Extrem: General: normal to inspection, full ROM and no edema Psych: Appearance: grossly normal and well kempt Mental Status: mental status grossly normal Speech and movement: Normal speech and movement present Affect: normal affect Attitude: cooperative Thought process: Normal thought process present Course Course Emergency Course: Discharge instructions reviewed with patient, as well as provided in writing per nursing staff. The instructions also include specific and strict return/GO TO THE ER as well as f/u information. All questions have been answered, and the patient deny any further questions with discharge and discharge plan. Portions of this record may have been created with voice recognition software Level of Care: Express Care Visit Vital Signs Vital signs: Vital Signs Temperature 36.8 C 12/23/24 09:41 Pulse Rate 74 12/23/24 09:41 Respiratory Rate 16 12/23/24 09:41 Blood Pressure 165/65 H 12/23/24 09:41 Pulse Oximetry 97 12/23/24 09:41 Oxygen Delivery Room Air 12/23/24 09:41 Temperature 36.8 C 12/23/24 09:41 Pulse Rate 74 12/23/24 09:41 Respiratory Rate 16 12/23/24 09:41 Blood Pressure 165/65 H 12/23/24 09:41 Pulse Oximetry 97 12/23/24 09:41 Oxygen Delivery Room Air 12/23/24 09:41 Reviewed MDM - URI/Sore Throat MDM Narrative Medical decision making narrative: Patient presenting with multiple complaints that have not improved with previous treatments. Discussed option of transfer for neck and hip imaging, patient declined and will follow-up with PCP for potential outpatient imaging orders. Patient has increased stress at home and is tearful with discussion of new care needs for . Patient states he is just tired of being sick. Discussed using good Rx to decrease echavarria of Symbicort since it has helped him in the past but he cannot afford the $300 medication. With good Rx it is roughly $92. Patient received breathing treatment while he was here, no wheezing present after treatment and patient states he feels much better. Will treat with steroids, doxycycline and cough medication. Sent in Symbicort to [facility] as it is cheaper than at [facility]. Pt well hydrated appearing, in no respiratory distress, hemodynamically stable. Recommend supportive care. The patient is stable at time of discharge the clinical impression was discussed and the patient was given the opportunity to ask questions, which were addressed as completely as possible given the information available at present. Anticipatory guidance and return to care precautions were discussed and the importance of primary care follow-up was stressed and encouraged. The patient voiced understanding of the plan, indications to return, and the need for follow-up. Exam findings show no acute concerns or changes Patient is appropriate for outpatient treatment and follow-up. Differential diagnosis considered: Griffith virus, strep pharyngitis, allergic rhinitis, upper respiratory tract infection, sinusitis, rhinosinusitis, nasoph aryngitis. viral pharyngitis, otitis media, otitis externa, otitis effusion, foreign body, cerumen impaction, viral syndrome, and influenza.? Medical Records Attestation: I reviewed the patient's medical records. Discharge Plan Discharge Clinical Impression: Upper respiratory infection with cough and congestion, Headache, Temporary high blood pressure Patient Disposition: Home Condition: Stable Instructions: Upper Respiratory Infection (ED) Additional Instructions: Take antibiotic as prescribed. Take steroids in the morning with food. Use inhaler with spacer as needed. You have been prescribed Doxycycline today.It may make your skin more sensitive to sunlight than normal. Make sure you wear sunscreen at all times when outside while on the medication. Other symptomatic treatments include: -Alternate Tylenol and Motrin per package directions for fever or pain: Tylenol 650-1000mg by mouth every 4-6 hours. Do not exceed 4000mg in 24 hours. Advil (Ibuprofen) 600 mg by mouth every 6 hours. Do not exceed 2400mg in 24 hours. 8 AM: Tylenol 11 AM: Ibuprofen 2 PM: Tylenol 5 PM: Ibuprofen 8 PM: Tylenol 11 PM: Ibuprofen 2 AM: Tylenol 5 AM: Ibuprofen -Antihistamine medication such as Benadryl at night and Zyrtec/Claritin/Stefanie during the day can help improve symptoms. -Use Flonase twice a day for 5 days then daily to help reduce the inflammation and dry up your sinuses. -You can also use Sudafed or Mucinex. Be sure to drink plenty of water with these medications at least 8 ounces with every dose and it is important to drink 8 to 10 glasses of water per day. Water is a natural decongestant -Eat and drink things that are easy to swallow, like tea or soup, or popsicles. -Oral rinses such as: Salt water gargles and/or may use topical anesthetic (eg. Chloraseptic spray) or lozenges to relieve dryness or throat pain). -Frequent hand washing or hand home care coordinator is one of the best ways to prevent spread of infection. -Using a vaporizer or humidifier at night will also help thin secretions and help with coughing up phlegm. Call your Primary Care Doctor and make a follow-up appointment in 3 days. If your cough worsens, you develop a fever greater than 103, you develop shaking chills, a fast heartbeat, trouble breathing and/or feel you are are breathing much faster than usual, call your Primary Care Doctor or go to the ER. Your blood pressure was elevated above 120/80 today at Urgent Care. This puts you above the threshold for follow up visit with a primary care provider. High blood pressure does not usually cause any symptoms, however it may lead to kidney failure, stroke, heart disease just to name a few if untreated . Many people are anxious when seeing a provider or nurse. As a result, you are not diagnosed with hypertension at this time unless your blood pressure is persistently high at two office visits at least one week apart. Some things that can help lower blood pressure are lifestyle modifications, such as light exercise, decreased salt in diet, and weight loss. It is important to follow up with a PCP about this within 1 week. Patient Language: [place] Prescriptions: New budesonide-formoterol 160-4.5 mcg/actuation HFA aerosol inhaler 2 puff inhalation Q12H Qty: 10.2 0RF prednisone 20 mg tablet See Rx Instructions .ROUTE .COMPLEX Qty: 9 0RF Rx Instructions: 40 mg daily x3 days, 20 mg daily x3 days doxycycline monohydrate 100 mg tablet 100 mg PO BID 7 Days Qty: 14 0RF promethazine-DM 6.25-15 mg/5 mL syrup 5 ml PO Q4-6H PRN (Reason: cough) Qty: 118 0RF No Action montelukast 10 mg tablet 10 mg PO QHS Qty: 90 1RF aspirin [Adult Aspirin Regimen] 81 mg tablet,delayed release (DR/EC) 81 mg PO DAILY meclizine 25 mg tablet 50 mg PO BID PRN (Reason: dizziness) Qty: 60 0RF atorvastatin 40 mg tablet See Rx Instructions .ROUTE .COMPLEX Qty: 90 1RF Dose Instruction: Take 1 tablet by mouth once daily Rx Instructions: Take 1 tablet by mouth once daily metoprolol tartrate 25 mg tablet See Rx Instructions .ROUTE .COMPLEX Qty: 180 1RF Dose Instruction: Take 1 tablet by mouth twice daily Rx Instructions: Take 1 tablet by mouth twice daily omeprazole 20 mg capsule,delayed release(DR/EC) 20 mg PO DAILY Qty: 90 1RF nitroglycerin 0.4 mg tablet, sublingual 0.4 mg sublingual DIRECTED Qty: 30 0RF tamsulosin [Flomax] 0.4 mg capsule 0.4 mg PO DAILY Qty: 90 1RF tramadol 50 mg tablet 50 mg PO Q6H PRN (Reason: pain) Qty: 20 0RF warfarin 6 mg tablet 6 mg PO DIRECTED Rx Instructions: SAT, SUN, SUN, ,SUN, SUNDAY warfarin 2 mg tablet 2 mg PO DAILY Rx Instructions: thur-- 2MG + 6MG = 8MG (DME) OneTouch Ultra Test Strip See Rx Instructions .Route Qty: 100 1RF Rx Instructions: check once daily metformin 500 mg tablet extended release 24 hr 500 mg PO DAILY Qty: 90 1RF ropinirole 0.25 mg tablet 0.25 mg PO QHS Qty: 30 3RF amlodipine-benazepril 5-20 mg capsule 1 cap PO DAILY Qty: 90 3RF Follow-up/Referrals: Alexandra Berger APRN [Primary Care Provider] - 3 Days Time of Disposition: 10:44
[2024-12-23 09:41] VITALS: BP 165/65; PULSE 74; RESP 16; TEMP 36.8; O2SAT 97
[2024-12-23] MEDS: IPRATROPIUM 0.5 MG/ALBUTEROL SULFATE 2.5 MG AMPUL.NEB 3 ML INHALATION (10:19)
== END 2024-12-23 10:52 | disposition home or self-care (01) ==
PROVIDERS: Emergency Provider Nurse Practitioner Family; PCP Nurse Practitioner Family
DX: J06.9 Acute upper respiratory infection, unspecified (principal); R05.9 Cough, unspecified; R51.9 Headache, unspecified; I10 Essential (primary) hypertension; I25.10 Atherosclerotic heart disease of native coronary artery without angina pectoris; N40.0 Benign prostatic hyperplasia without lower urinary tract symptoms; E11.9 Type 2 diabetes mellitus without complications; K21.9 Gastro-esophageal reflux disease without esophagitis; Z95.0 Presence of cardiac pacemaker; E78.2 Mixed hyperlipidemia; H35.30 Unspecified macular degeneration; Z95.1 Presence of aortocoronary bypass graft; Z87.891 Personal history of nicotine dependence; Z79.82 Long term (current) use of aspirin
CPT/HCPCS: 94640; 99213; G0463

== ENCOUNTER → 2024-12-30 16:44 | Outpatient (CLI) | payer MEDICARE, SELFPAY ==
--- NOTE | ~2024-12-30 | XR_ITS ---
Cervical Spine: AP, lateral, oblique, open-mouth views Clinical History: Pain Findings: The normal lordotic curve is maintained. No fracture or subluxation. There is moderate dege nerative disc narrowing at C5-C6 and C6-C7. There is moderate to advanced facet arthropathy in the ce rvical spine diffusely. Pre-vertebral soft tissues are unremarkable. Impression: Moderate degenerative spondylosis overall, as detailed above. Reviewed, dictated and finalized at location M. Impression: Moderate degenerative spondylosis overall, as detailed above.
== END ==
LOC: EXPCRAD 16:45
PROVIDERS: PCP Family Medicine; Visit Provider Family Medicine
DX: M47.812 Spondylosis without myelopathy or radiculopathy, cervical region (principal)
CPT/HCPCS: 72050

== ENCOUNTER 2025-01-03 13:45 | Emergency (ER) | payer MEDICARE, SELFPAY ==
--- NOTE | ~2025-01-03 | CT_ITS ---
Non-contrast Head CT History: Paresthesia COMPARISON: 04/09/2024 Technique: Axial non-contrast imaging of the brain was performed. Dose reduction technique was used on this scan by utilizing automated exposure control and iterative reconstruction technique. The dose -length product (DLP) was 605.33 mGy-cm. Findings: There is no evidence of intracranial hemorrhage, mass lesion, or acute infarct. Brain par enchyma appears normal. The ventricles and subarachnoid spaces are normal in size. The calvarium ap pears normal. Stable right maxillary sinus disease. The remaining visualized paranasal sinuses and ma stoid air cells are clear. Impression: No intracranial abnormality seen. Reviewed, dictated and finalized at location . Impression: No intracranial abnormality seen.
--- OUTSIDE RECORDS SUMMARY | 2025-01-03 13:48 | XMS_ITS | Clinical Summary ---
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 Name Role Phone Elena Harvey MD Unavailable [phone] Fermin Marina MD Primary Care Provider [phone] Allergies Active Allergy Reactions Criticality Noted Date Comments Adhesive Itching Low 09/20/2018 Medications omeprazole (PriLOSEC) 20 mg capsule Take 1 capsule (20 mg total) by mouth daily Active aspirin 81 mg chewable tabletIndications:p revention of thrombosis Take 1 tablet (81 mg total) by mouth daily Active fluticasone propionate (FLONASE) 50 mcg/actuation nasal spray Administer 2 sprays into affected nostril(s) as needed PRN 07/25/19 20 Active Symbicort 160-4.5 mcg/actuation inhaler Inhale 1 puff 2 (two) times a day as needed 10/21/19 22 Active vit C/E/Zn/coppr/lutein /zeaxan (PRESERVISION AREDS-2 ORAL) Take 2 capsules by mouth daily Active metoprolol tartrate (LOPRESSOR) 25 mg immediate release tablet Take 1 tablet (25 mg total) by mouth daily 90 tablet 3 06/08/20 22 Active atorvastatin (LIPITOR) 40 mg tablet Take 1 tablet by mouth once daily 90 tablet 08/26/19 23 Active metFORMIN (GLUCOPHAGE) 500 mg tablet Take 1 tablet (500 mg total) by mouth daily 03/06/20 23 Active nitroglycerin (NITROSTAT) 0.4 mg SL tabletIndications:C oronary artery disease of crow artery of crow heart with stable angina pectoris Place 1 tablet (0.4 mg total) under the tongue every 5 (five) minutes as needed for chest pain Up to 3 doses 25 tablet 1 04/16/20 23 Active warfarin (COUMADIN) 2 mg tabletIndications:P aroxysmal atrial fibrillation (HCC),Chronic anticoagulation TAKE 1 TABLET BY MOUTH ONCE DAILY SUNDAY THROUGH SUNDAY (TAKE WITH 6 MG TABLET TO EQUAL 8 MG TOTAL) 76 tablet 10/22/19 24 Active amLODIPine-benazepr iL (LOTREL) 10-20 mg per capsuleIndications: Essential hypertension Take 1 capsule by mouth once daily 90 capsule 2 05/27/20 24 Active albuterol HFA (PROVENTIL HFA,VENTOLIN HFA,PROAIR HFA) 90 mcg/actuation inhaler 08/05/19 25 Active warfarin (COUMADIN) 6 mg tablet Take 1 tablet by mouth once daily 30 tablet 3 09/27/19 25 Active Active Problems Problem Noted Date Diagnosed Date Anxiety 05/14/2023 Paresthesias 11/06/2022 Dry eye syndrome of both eyes 08/03/2022 Assessment & Plan (08/03/2022 4:33 PM PIN MAKER): Recommend preservative-free artificial tear drops 3 to 4 times a day Chest discomfort 05/02/2022 Cerebral atherosclerosis 05/02/2022 Irregular astigmatism of both eyes 01/27/2022 Assessment & Plan (08/03/2022 4:32 PM PIN MAKER): No significant improvement in VA with over refraction, continue with habitual Rx. Assessment & Plan (03/30/2022 5:03 PM CDT): Change in refraction left eye (left eye (OS)) , pt appreciates with trial frame :20 min trial lens refraction Assessment & Plan (01/27/2022 5:38 PM CDT): bva improves with refraction, appreciated higher add with trial frame. rec /SVN Rx Chronic fatigue 01/25/2022 Mixed diabetic hyperlipidemi a associated with type 2 diabetes mellitus 10/14/2021 Dilated cardiomyopathy 09/09/2021 Assessment & Plan (09/09/2021 7:13 AM CDT): This is a new diagnosis and, despite his history of coronary artery disease, does not appear to be ischemic based on his recent pharmacologic MPI. I am concerned that it may represent RV pacing cardiomyopathy, but it was diagnosed around the time of a COVID illness. Will repeat echo in a couple of months, and if ejection fraction is still low, would recommend consideration of cardiac resynchronization therapy. For convenience, he would still like to follow-up for general cardiology in [place], and I recommended that he see Dr. Anaya Conrad as he prefers a female chemistry account manager. For EP, he will continue to come here and see Dr. Morales. Pseudophakia of both eyes 04/05/2020 Assessment & Plan (08/03/2022 4:31 PM PIN MAKER): Patient was educated on the intraocular lens (IOL) status. Follow. Assessment & Plan (04/05/2020 3:46 PM CDT): Patient was educated on the intraocular lens (IOL) status. Follow. Diabetes mellitus type 2 without retinopathy Assessment & Plan (08/03/2022 4:31 PM PIN MAKER): Pt ed. Stressed BG control (HbA1C<7) to reduce the risk for diabetic ocular complications. Lab Results Component Value Date HGBA1C 6.8 (H) 07/22/2018 Assessment & Plan (04/05/2020 3:46 PM CDT): Pt ed. Stressed BG control (HbA1C<7) to reduce the risk for diabetic ocular complications. Advanced atrophic nonexudati ve age-related macular degeneration of right eye with subfoveal involvement 04/05/2020 Assessment & Plan (08/03/2022 4:34 PM PIN MAKER): Stable on OCT, monitor, cont areds, rtc with any acute vision changes left eye (OS) It worse to be seen annually vs every 6 month. He is aware to call immediately with any changes. Assessment & Plan (03/30/2022 5:03 PM CDT): Keep f/u DFE and OCT Assessment & Plan (01/27/2022 5:37 PM CDT): Stable, no choroidal neovascular membrane (CNVM) on OCT. Assessment & Plan (04/05/2020 4:56 PM CDT): Pt ed. Prior smoker 25+ yr. Reviewed OCT images. No choroidal neovascular membrane (CNVM) both eyes (OU). Ivet given - pt ed to call immediately with any changes. RTC 6 mos DFE and macular OCT. Start AREDs vitamins. Status post biventricular pacemaker 09/23/2018 Overview (05/03/2022): Medtronic Solara Quad OXYGEN PLANT OPERATOR-P imp on 12/26/21 for FLWO-RIV-APM. [facility]-EP/[facility] - [facility] Chronic RA/RV Leads from 09/23/18. New LV Lead 12/26/21. Assessment & Plan (12/26/2021 2:45 PM CDT): Status post pacemaker for symptomatic bradycardia/complete heart block. The patient's device was interrogated and found to be functioning appropriately. No substantial changes to programming were made. The patient is enrolled in the [facility], and we will continue to follow with remote monitoring when possible, and in-office device checks when necessary. He is 100% RV paced, and has developed moderate LV dysfunction. Recent EF 40%. Additionally, the patient reports new York Heart Association class 3 symptoms. I recommended that the patient consider device revision to a biventricular pacemaker. I explained the risks of device placement, including device infection, hematoma, vascular injury, pneumothorax, myocardial perforation, lead dislodgement, and . I estimated the risks of these to be low. We also discussed the specific benefits of device placement. My office will make the appropriate arrangements. From: Ramirez FM, Barbara MH, Yo C, Yaron R, Evans JR, Ca JE, Jaspreet KA, Tami CJ, Zeferino MR, Zev KR, Kameron NF, Pietro KK, Reilly RM, Natividad CN, Joe JA, Miguel KA, Aditi RJ, Hutchison A, Mundo PD, 2018 ACC/AHA/HRS Guideline on the Evaluation and Management of Patients With Bradycardia and Cardiac Conduction Delay: Executive Summary, Heart Rhythm (2018), doi: [email or web address]. Class IIA. In patients with atrioventricular block who have an indication for permanent pacing with a left ventricular ejection fraction between 36% and 50% and are expected to require ventricular pacing more than 40% of the time, it is reasonable to choose pacing methods that maintain physiologic ventricular activation (e.g., cardiac resynchronization therapy [OXYGEN PLANT OPERATOR] or His bundle pacing) over right ventricular pacing Assessment & Plan (01/17/2021 1:30 PM CDT): Normal pacemaker function. Assessment & Plan (07/19/2020 12:07 PM PIN MAKER): Followed through the arrhythmia Center. Assessment & Plan (07/18/2019 12:18 PM PIN MAKER): Normal function. Assessment & Plan (12/09/2018 11:56 AM CDT): Pacemaker was interrogated today and is functioning normally. No atrial fibrillation was seen. He remains on warfarin because of his history of splenic infarct and postoperative atrial fibrillation. NOACs were cost prohibitive for him. Normocytic anemia 09/21/2018 Irritable bowel syndrome wit h both constipation and diarrhea 09/21/2018 Chronic anticoagulation 09/13/2018 Class 1 obesity due to exces s calories with serious comorbidity and body mass index (BMI) of 30.0 to 30.9 in adult 07/22/2018 Sleep-disordered breathing 07/22/2018 Benign prostatic hyperplasia with lower urinary tract symptoms 07/22/2018 Sebaceous cyst 07/22/2018 COPD (chronic obstructive pulmonary disease) Paroxysmal atrial fibrillation (CMS/HCC) 018 Assessment & Plan (12/26/2021 2:46 PM CDT): Paroxysmal atrial fibrillation has been rendered asymptomatic by way of pacemaker/complete heart block. However, the patient needs to remain anticoagulated for thromboprophylaxis. His chads Vasc score is 6. Assessment & Plan (01/17/2021 1:30 PM CDT): He is anticoagulated with warfarin, NOACs having been unaffordable for him. Assessment & Plan (07/19/2020 12:06 PM PIN MAKER): Very low burden seen on pacemaker interrogation. He is on warfarin. Assessment & Plan (01/16/2020 11:33 AM CDT): Chronically anticoagulated. He is on warfarin as NOACs were not affordable. Offered that we could check into home testing, but he is happy going to the lab. Assessment & Plan (07/18/2019 12:15 PM PIN MAKER): Continue warfarin, but it can be interrupted for dental extraction. Splenic infarct 11/01/2017 Assessment & Plan (09/10/2018 6:41 PM CDT): This was almost certainly cardioembolic. For this reason, he requires anticoagulation. Once he has run out of his current supply of Eliquis, will begin warfarin 4 mg daily and monitor INRs. Assessment & Plan (03/12/2018 3:04 PM CDT): Even though atrial fibrillation has not been documented, it is the most likely explanation for a splenic infarct, so will continue anticoagulation. This was discussed in detail with the patient today. Assessment & Plan (11/01/2017 7:08 PM CDT): Splenic infarction was well documented on his CT scan. His symptoms are improving. Because of this is not clear. It was attributed to atrial fibrillation, but I am suspicious that atrial fibrillation may have been an erroneous diagnosis, as the only EKG available to me did show an irregularly irregular rhythm which at 1st glance may have appeared to be atrial fibrillation, but it is clearly Mobitz one second- degree AV block, and indeed was officially read as this. Will contact [facility] to see if there were any other EKGs or rhythm strips showing atrial fibrillation. If atrial fibrillation was not demonstrated, I would recommend a 30 day event monitor. If no atrial fibrillation is seen on that, continued anticoagulation may not be appropriate, and an evaluation to determine if he has peripheral vascular disease that would have caused his splenic infarct may be in order. For now, will continue Eliquis. If atrial fibrillation is demonstrated and he needs to remain on anticoagulation, will need to find out if any of the NOACs is affordable on his plan or would be offered through the pharmaceutical company given his low income (he receives Januvia this way). Alternatively, warfarin would be another option, albeit less convenient. Essential hypertension 02/04/2017 Assessment & Plan (09/09/2021 7:14 AM CDT): Blood pressure is controlled on current regimen which was not changed. Assessment & Plan (01/17/2021 1:29 PM CDT): Blood pressure is adequately controlled on current regimen. No change was made. Assessment & Plan (07/19/2020 12:05 PM PIN MAKER): Blood pressure is adequately controlled on current regimen. Will change his prescription from 20 mg of lisinopril to 10 mg daily. Assessment & Plan (01/16/2020 11:32 AM CDT): Blood pressure is adequately controlled on current regimen. No change was made. Assessment & Plan (07/18/2019 12:16 PM PIN MAKER): Blood pressure is adequately controlled on current regimen. No change was made. Assessment & Plan (12/09/2018 11:54 AM CDT): Not consistently or ideally controlled. Will increase lisinopril to 20 mg daily. Renal function is good and he has been on this dosage before. Assessment & Plan (09/10/2018 6:40 PM CDT): Blood pressure is controlled on his current reduced regimen. It would not surprise me that he will require intensification of his antihypertensive therapy as he becomes more active. Assessment & Plan (07/22/2018 6:25 PM PIN MAKER): Blood pressure is adequately controlled on current regimen. No change was made. Assessment & Plan (03/12/2018 3:03 PM CDT): Blood pressure is adequately controlled on current regimen. No change was made. Assessment & Plan (11/01/2017 7:08 PM CDT): Blood pressure is adequately controlled on current regimen. No change was made. Assessment & Plan (09/20/2017 5:15 PM CDT): Blood pressure is not adequately controlled. Will increase lisinopril to 40 mg daily. Assessment & Plan (02/04/2017 3:34 PM CDT): Blood pressure is adequately controlled on current regimen. No change was made. Chronic low back pain with sciatica 10/05/2015 Coronary artery disease invo lving crow coronary artery of crow heart without angina pectoris 06/03/2014 Overview (12/05/2017): Coronary arteriosclerosis in crow artery Assessment & Plan (09/09/2021 7:14 AM CDT): Asymptomatic and with favorable Lexiscan. Assessment & Plan (01/17/2021 1:29 PM CDT): Asymptomatic. He is two years status post coronary artery bypass grafting. Assessment & Plan (07/19/2020 12:05 PM PIN MAKER): No symptoms of myocardial ischemia. He does have some incisional discomfort and would like to see a surgeon when he is back in six months. He will schedule that appointment. Assessment & Plan (01/16/2020 11:31 AM CDT): Asymptomatic following bypass surgery. Continue aspirin and metoprolol. Assessment & Plan (07/18/2019 12:15 PM PIN MAKER): No symptoms of myocardial ischemia. Continue aspirin. Assessment & Plan (12/09/2018 11:54 AM CDT): No symptoms of myocardial ischemia. Continue low-dose aspirin. Assessment & Plan (09/10/2018 6:42 PM CDT): Asymptomatic following recent surgery. Continue low-dose aspirin. Begin cardiac rehab. For convenience will switch to metoprolol succinate so he will not have to split pills. Assessment & Plan (07/22/2018 6:25 PM PIN MAKER): Cardiac catheterization today reveals that his coronary artery disease is severe. Surgical revascularization is appropriate. Dr. Sánchez has seen him and he is tentatively scheduled for surgery tomorrow. An echocardiogram is pending. Assessment & Plan (03/12/2018 3:02 PM CDT): No symptoms of myocardial ischemia at this time. Continue aspirin. Assessment & Plan (11/01/2017 7:08 PM CDT): Asymptomatic. Continue aspirin. Assessment & Plan (09/20/2017 5:12 PM CDT): No symptoms of myocardial ischemia. Continue aspirin. Assessment & Plan (02/04/2017 3:33 PM CDT): Asymptomatic. Continue anti-platelet therapy. Diabetes mellitus type II, c ontrolled, with no complications 08/25/2009 Shortness of breath Hx of CABG Resolved Problems Problem Noted Date Diagnosed Date Resolved Date Other thrombophilia 05/02/2022 05/02/20 22 Glaucoma suspect of both eyes 04/05/2020 08/03/2022 Assessment & Plan (04/05/2020 4:54 PM CDT): Likely physiologic cupping - no significant RNFL thinning. Normal IOPs, no FHx. Monitor. Incisional pain 01/16/2020 01/25/2022 Assessment & Plan (01/16/2020 11:35 AM CDT): Unclear to me if this is from his keloid or a wire. He is not interested in doing anything about it at this time, but is interested in having it evaluated in the winter to see if anything can be done. Bradycardia 09/20/2018 01/25/2022 Overview (09/23/2018): Added automatically from request for surgery [id number] Multi-vessel coronary artery stenosis 07/22/2018 01/25/2022 NSTEMI (non-ST elevated myoc ardial infarction) ([facility]) 07/22/2018 01/25/2022 Second degree AV block 11/01/201701/25 Assessment & Plan (12/09/2018 11:55 AM CDT): Managed with pacemaker. Assessment & Plan (03/12/2018 3:03 PM CDT): Asymptomatic. This may be related to sleep apnea. He should have a sleep study. He is going to talk to his PCP about possibly getting home testing. Assessment & Plan (11/01/2017 7:12 PM CDT): This is asymptomatic. Diltiazem may be contributing. At the time of his office visit, I was not aware that the EKG from 10/26/2017 showed second-degree AV block. Therefore, no change in treatment was advised. Will anticipate switching him from diltiazem to metoprolol at an early upcoming office visit. ( I do not think he would understand this through a phone call.) Hyperlipidemia 02/04/2017 10/14/2021 Assessment & Plan (09/09/2021 7:15 AM CDT): Continue high-intensity statin therapy, atorvastatin 40 mg daily. Assessment & Plan (01/17/2021 1:29 PM CDT): On chronic lipid lowering therapy with good control. No changes made. Assessment & Plan (07/19/2020 12:06 PM PIN MAKER): On chronic lipid lowering therapy with good control. No changes made. Assessment & Plan (01/16/2020 11:32 AM CDT): He is on high-intensity statin therapy. Assessment & Plan (07/18/2019 12:16 PM PIN MAKER): On chronic lipid lowering therapy with good control. No changes made. Assessment & Plan (12/09/2018 11:55 AM CDT): On chronic lipid lowering therapy with good control. No changes made. Assessment & Plan (09/10/2018 6:41 PM CDT): On chronic lipid lowering therapy with good control. No changes made. Assessment & Plan (07/22/2018 7:06 PM PIN MAKER): Lipid abnormalities are {improving/stable/worsenin}. {plan; hyperlipidemia for MU/POC:[id number]} Lipids will be reassessed {plan; follow-up 3 months/6 months/1 year:[id number]}. Assessment & Plan (03/12/2018 3:03 PM CDT): On chronic lipid lowering therapy with good control. No changes made. Assessment & Plan (11/01/2017 7:08 PM CDT): On chronic lipid lowering therapy with good control. No changes made. Assessment & Plan (09/20/2017 5:14 PM CDT): On chronic lipid lowering therapy with good control. No changes made. Assessment & Plan (02/04/2017 3:36 PM CDT): He lipids are not at target. He was recently switched to atorvastatin. Atherosclerosis of aorta (CMS/HCC) 06/22/2014 01/25/2022 Overview (12/05/2017): Overview: CXR 6-29-14 Old ND (myocardial infarction) 06/22/2014 01/25/2022 Overview (12/05/2017): Overview: Dr Harvey 2-26-13 Encounters Date Type Department Care Team Description 12/31/2024 Anticoagulation Visit [facility] [address] [place] [address] Jeanna Salomon RN Paroxysmal atrial fibrillation (CMS/HCC) (HCC) (Primary Dx); Chronic anticoagulation 12/30/2024 Telephone [facility] [address] [place] [address] [place] [phone] Luis Ochoa MD INR order 12/03/2024 Anticoagulation Visit [facility] at [address] [place] [address] Meme Latif RN Paroxysmal atrial fibrillation (CMS/HCC) (HCC) (Primary Dx); Chronic anticoagulation 10/31/2024 Anticoagulation Visit [facility] [address] [place] [address] Jeanna Salomon RN Paroxysmal atrial fibrillation (CMS/HCC) (HCC) (Primary Dx); Chronic anticoagulation 10/22/2024 10:15 AM CDT Ancillary Procedure [facility] [address] [place] [address] [place] [phone] Complete heart block (HCC) (Primary Dx); Paroxysmal atrial fibrillation (HCC); NICM (nonischemic cardiomyopathy) (HCC); Congestive heart failure, unspecified HF chronicity, unspecified heart failure type (HCC); Status post biventricular pacemaker from Last 3 Months Surgical History Surgery Date Site/Laterality Comments APPENDECTOMY Appendectomy CHOLECYSTECTOMY Cholecystectomy CORONARY STENT PLACEMENT Coronary Stent Placement CORONARY ARTERY BYPASS GRAFT INSERT / REPLACE / REMOVE PACEMAKER 12/16/2021 - 01/15/2022 Medical History Medical History Date Comments Hypertension Hyperlipidemia Coronary artery disease S/P drug eluting coronary stent placement S/P CABG (coronary artery bypass graft) Macular degeneration Family History Medical History Relation Name Comments Heart attack Mother 2 Myocardial Infa rction; Relation Name Status Comments Mother 1 Alive Mother 2 Social History Tobacco Use Types Packs/Day Years Used Date Smoking Tobacco: Former Smokeless Tobacco: Former Tobacco Cessation:Counseling Given: Not Answered Alcohol Use Standard Drinks/Week Comments No 0 (1 standard drink = 0.6 oz pur e alcohol) Sex and Gender Information Value Date Recorded Sex Assigned at Not on file Legal Sex Male 9:21 PM PIN MAKER Gender Identity Not on file Sexual Orientation Not on file Obstetrics History Last Filed Vital Signs Vital Sign Reading Time Taken Comments Blood Pressure 142/62 08/21/2024 11:24 AM PIN MAKER Pulse 78 08/21/2024 11:24 AM PIN MAKER Temperature 37.5 C (99.5 F) 12/26/2021 12:00 PM CDT Respiratory Rate 16 12/26/2021 6:45 PM CDT Oxygen Saturation 96% 08/21/2024 11:24 AM PIN MAKER Inhaled Oxygen Concentration - - Weight 101.2 kg (223 lb) 08/21/2024 11:24 AM PIN MAKER Height 182.9 cm (6') 08/21/2024 11:24 AM PIN MAKER Body Mass Index 30.24 08/21/2024 11:24 AM PIN MAKER Plan of Treatment Health Maintenance Due Date Last Done Comments Albumin Creatinine Ratio, Urine 1944 Depression Screening 1945 Foot Exam 1944 DTaP/Tdap/Td Vaccine (1 - Tdap) 10/16/1955 Hepatitis B Screening 1962 Zoster Vaccine (1 of 2) 1994 Abdominal Aortic Aneurysm (A AA) Screen 2009 Well Visit 65+ 2009 eGFR 09/25/2019 09/24/2018, 02/2019, 09/23/2018, Additional history exists Hemoglobin A1C 08/03/2021 01/31/2021, 02/16, 07/22/2018, Additional history exists Fall Risk Assessment 12/26/2022 12/26/2021 Dilated Eye Exam 08/03/2023 08/03/2022 Lipid Panel 11/07/2023 11/06/2022, 09/17, 01/31/2021, Additional history exists Covid-19 Vaccine (3 - 2023-2 5 season) 2024 08/25/2020, 08/06/2020 Influenza Vaccine (#1) 2025 , 06/23/2014, 06/23/2014, Additional history exists Pneumococcal vaccine 65+ Completed 02/21/2019, 04/18 Medical Devices Implanted Type Area Shoe Lining Fitter Device Identifier Shelf Expiration Date Model / Serial / Lot Medtronic Cardiac Rhythm Mgmt 5076-58 Capsurefix Novus 6.2fr 2mm 58cm Bipolar Screw In Implantable - [id number] - [id number] Implanted:Qty: 1 on 09/23/2018 by Feliberto Morales MD at [facility] Lead Left: Heart Medtronic Cardiac Rhythm Mgmt [id number] 02/07/2020 5076-58 / [id number] / Medtronic Cardiac Rhythm Mgmt 5076-52 Capsurefix Novus 6.2fr 2mm 52cm Bipolar Screw In Implantable Latex Free - [id number] - [id number] Implanted:Qty: 1 on 09/23/2018 by Feliberto Morales MD at [facility] Lead Left: Heart Medtronic Cardiac Rhythm Mgmt [id number] 06/01/2020 5076-52 / [id number] / Attain Stability Quad Mri Surescan Active Fixation Lv Lead 88cm [id number] - [id number] - [id number] Implanted:Qty: 1 on 12/26/2021 by Feliberto Morales MD at [facility] Lead Medtronic Inc [id number] 09/14/2023 [id number] / [id number] / Medtronic Inc Solara Mri Surescan Bluetooth 46.5x59mm Connector Hole Radiopaque [id number] - [id number] - [id number] Implanted:Qty: 1 on 12/26/2021 by Feliberto Morales MD at [facility] Pacemaker Medtronic Inc 02/12/2023 [id number] / [id number] / Explanted Type Area Shoe Lining Fitter Device Identifier Shelf Expiration Date Model / Serial / Lot Medtronic Cardiac Rhythm Mgmt [id number] Kami S Mri Surescan 50.8x46.6mm 2 Chamber 7.4mm Pacemaker 22.5gm - [id number] - [id number] Implanted:Qty : 1 on 09/23/2018 by Feliberto Morales MD at [facility] Explanted:Qty : 1 on 12/26/2021 at [facility] Pacemaker Left: Heart Medtronic Cardiac Rhythm Mgmt [id number] 02/13/2020 [id number] / [id number] / Procedures Procedure Name Priority Date/Time Associated Diagnosis Comments PROTIME-INR Routine 12/30/2024 9:48 AM CDT Paroxysmal atrial fibrillation (CMS/HCC) (HCC) Chronic anticoagulation PROTIME-INR Routine 12/02/2024 9:34 AM CDT Paroxysmal atrial fibrillation (HCC) Chronic anticoagulation PROTIME-INR Routine 10/30/2024 9:35 AM CDT Paroxysmal atrial fibrillation (HCC) Chronic anticoagulation DEVICE CHECK - REMOTE Routine 10/22/2024 9:22 AM CDT Paroxysmal atrial fibrillation (HCC) NICM (nonischemic cardiomyopathy) (HCC) POCT LIPID PANEL Routine 11/06/2022 3:10 PM CDT Lipid screening EGFR Routine 09/24/2018 5:41 AM CDT HEMOGLOBIN A1C Routine 07/22/2018 5:57 PM PIN MAKER from Last 3 Months or Most Recently Relevant to Health Maintenance Results * (ABNORMAL) Protime-INR (12/30/2024 9:48 AM CDT) INR 2.7(H) [facility] Erickson Comment: Reference Range 0.9-1.1 Moderate-intensity Warfarin Therapy 2.0-3.0 Higher-intensity Warfarin Therapy 3.0-4.0 PT 26.8(H) 9.0 - 11.5 sec [facility]on Comment: For additional information, please refer to http://education.Campus Cellect/faq/PJI141 (This link is being provided for informational/ educational purposes only.) Blood 12/30/2024 9:48 AM CDT 12/30/2024 9:49 AM CDT Narrative [facility] - 12/30/2024 5:33 PM CDT FASTING:NO FASTING: NO Luis Ochoa MD LAB BLOOD ORDERABLES Fin al Result Performing Organization Address [facility] Co de Phone Number [facility] [address] [place] [address] * (ABNORMAL) Protime-INR (12/02/2024 9:34 AM CDT) INR 2.1(H) [facility] Comment: Reference Range 0.9-1.1 Moderate-intensity Warfarin Therapy 2.0-3.0 Higher-intensity Warfarin Therapy 3.0-4.0 PT 21.7(H) 9.0 - 11.5 sec [facility] Comment: For additional information, please refer to [email or web address].Campus Cellect/faq/LSR402 (This link is being provided for informational/ educational purposes only.) Blood 12/02/2024 9:34 AM CDT 12/02/2024 9:38 AM CDT Narrative [facility] - 12/02/2024 4:47 PM CDT FASTING:NO FASTING: NO Kirill Lopez MD LAB BLOOD ORDERABLES Fi nal Result Performing Organization Address [facility] de Phone Number [facility] [address] [place] [address] * (ABNORMAL) Protime-INR (10/30/2024 9:35 AM CDT) INR 2.9(H) [facility] Comment: Reference Range 0.9-1.1 Moderate-intensity Warfarin Therapy 2.0-3.0 Higher-intensity Warfarin Therapy 3.0-4.0 PT 28.5(H) 9.0 - 11.5 sec [facility] Comment: For additional information, please refer to [email or web address].Campus Cellect/faq/XYC530 (This link is being provided for informational/ educational purposes only.) Blood 10/30/2024 9:35 AM CDT 10/30/2024 9:35 AM CDT Kirill Lopez MD LAB BLOOD ORDERABLES Fi nal Result [facility] [address] [place] [address] * DEVICE CHECK - REMOTE (10/22/2024 9:22 AM CDT) Anatomical Region Laterality Modality Other Narrative 01/01/2025 7:46 AM CDT [employer] 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 Andrew-EP/[place]-Card - [facility] Chronic RA/RV Leads from 09/23/18. New LV Lead 12/26/21. Routine DDDR Pacemaker Remote. Transmission attached. Battery status: 2.92 V, 2.2 years remaining battery life to [place]. Stable lead impedances, pacing and sensing thresholds. Presenting rhythm: AP/BV with PACs AP-74.8%, WARP HANGER-99.7% No AT/AF episodes noted. No Ventricular high rate episodes detected. Medications: Warfarin, ASA 81 mg, metoprolol 25 mg See scanned report. Office pacemaker follow up: 04/29/25 [facility] remote f/u 01/28/25. Amadeo Pinon, RN Anaya Conrad MD [facility] PROCEDU RES Final Result * POCT lipid panel (11/06/2022 3:10 PM CDT) Cholesterol, POC 141 mg/dL HDL, POC 43 mg/dL Triglycerides, POC 179 mg/dL LDL Cholesterol POC 63 mg/dL Chol/HDL Ratio, POC 1.5 Non-HDL Cholesterol, POC 98 mg/dL Cholesterol Total, POC 141 mg/dL Capillary blood 11/06/2022 3 :10 PM CDT Anaya Conrad MD POINT OF CARE TEST ORDERABL ES Final Result * eGFR (09/24/2018 5:41 AM CDT) eGFR 101 mL/min/1.7 3 m2 [facility] Comment: Interpretive Data Reference Interval Normal >/= 90 mL/min/1.73m2 Mildly decreased* 60 - 89 mL/min/1.73m2 Mildly to moderately decreased 45 - 59 mL/min/1.73m2 Moderately to severely decreased 30 - 44 mL/min/1.73m2 Severely decreased 15 - 29 mL/min/1.73m2 Kidney Failure < 15 mL/min/1.73m2 *Relative to young adult level If -[place] Citizen multiply value by 1.16. Estimated glomerular filtration rate is determined by the CKD-EPI equation recommended by the National Kidney Foundation (KDIGO 2012 Clinical Practice Guideline for the Evaluation and Management of Chronic Kidney Disease. Kidney Intnl Suppl Jun 2012;3:1). The CKD-EPI equation should not be used for patients with unstable renal function and has not been validated in children and those over 70. Current interpretive data was last reviewed 2016. Blood specimen (specimen) 09/24/2018 5:41 AM CDT 09/24/2018 6:35 AM CDT Narrative [facility] - 09/24/2018 7:04 AM CDT us Feliberto Morales MD LAB BLOOD ORDERABLES Fi nal Result [facility] [address] Department [place] [address] * (ABNORMAL) Hemoglobin A1c (07/22/2018 5:57 PM PIN MAKER) Hgb A1C 6.8(H) 4.0 - 5.6 % [facility] Estimated Average Glucose 148 mg/dL [facility] Comment: The ADA recommends reporting an estimated Average Glucose (eAG) with all Hemoglobin A1c results using the equation derived from a study of 507 normal and diabetic adults. Minority populations were underrepresented and children were not included. (Diabetes Care 31:9379-2452, 2008). The eAG is not equivalent to a fasting glucose. Blood specimen (specimen) 07/22/2018 5:57 PM PIN MAKER 07/22/2018 6:02 PM PIN MAKER Narrative [facility] - 07/22/2018 6:36 PM PIN MAKER Luis Sánchez MD LAB BLOOD ORDERABLES Final Result [facility] [address] Department [place] [address] from Last 3 Months or Most Recently Relevant to Health Maintenance Insurance [facility] MEDICARE FORMERLY [facility] Advance Directives For more information, please contact: [phone] * Full Code (Latest Code Status on File) Date Activated Date Inactivated Comments 09/20/2018 7:34 PM 09/24/2018 2:37 PM * Full Code Date Activated Date Inactivated Comments 07/29/2018 6:37 PM 09/20/2018 2:29 PM * Full Code Date Activated Date Inactivated Comments 07/23/2018 12:51 PM 07/27/2018 5:02 PM * Full Code Date Activated Date Inactivated Comments 07/22/2018 5:10 PM 07/23/2018 12:51 PM [employer] Salesperson Relationship Specialty Start Date End Date Fermin Marina MD [address] [place] [address] PCP - General Family Medicine 05/05/21 Elena Harvey MD [address] [place] [address] Consulting Physician Cardiology 04/04/21
--- OUTSIDE RECORDS SUMMARY | 2025-01-03 13:48 | XMS_ITS | Clinical Summary ---
Author Organization [facility] Address [address] [place] [address] Care Team Providers Care Licensed Clinical Social Worker Name Role Phone Elena Harvey MD, Cami L MD Primary Care Provider [phone] Source Comments [facility],non-owned Affiliates and Associated Physician Practices is amultiple site organization consisting of ambulatory clinics and hospital sitesin [place], [place], [place] and [place]. This disclosure is being madepursuant to the Care Everywhere program and may not contain all information available regarding this patient. Last updated 18.[facility] Allergies Active Allergy Reactions Criticality Noted Date Comments Metformin Diarrhea Medium 04/16/2013 Hmg-Coa-R Inhibitors 10/03/2010 Medications * Be aware that medications may not be up to date on this document. Alwaysverify current medications with the patient. Melrose-3 & Melrose-6 Fish Oil CAPS Take by mouth. Active aspirin 81 MG tablet Take 81 mg by mouth daily. Active nitroGLYCERIN (NITROSTAT) 0.4 MG tablet Dissolve 0.4 mg under the tongue as needed 03/12/20 18 Active hydroCHLOROthiazide (HYDRODIURIL) 25 MG tabletIndications:Ess ential hypertension Take 1 tablet by mouth once daily 90 tablet 1 07/03/19 19 Active warfarin (COUMADIN) 2 MG tablet Take 8 mg on Mon & Fri and 6 mg all other days 09/12/19 19 Active meclizine (ANTIVERT) 25 MG tablet Take 1 tablet by mouth once daily as needed for Dizziness 90 tablet 1 11/01/19 19 Active atorvastatin (LIPITOR) 40 MG tabletIndications:Pur e hyperglyceridemia Take 40 mg by mouth once daily 1 12/09/19 19 Active promethazine-codeine (PHENERGAN WITH CODEINE) 6.25-10 MG/5ML solution Take 5 mL by mouth every 6 hours as needed for Cough 180 mL 06/20/19 20 Active lisinopril (PRINIVIL; ZESTRIL) 10 MG tablet Take 10 mg by mouth once daily 06/18/19 20 Active metoprolol tartrate (LOPRESSOR) 25 MG tablet TAKE 1/2 TAB BY MOUITH TWICE DAILY 01/13/20 20 Active fluticasone propionate (FLONASE) 50 MCG/ACT nasal sprayIndications:Seas onal allergic rhinitis due to other allergic trigger USE 2 SPRAYS INTO EACH NOSTRIL ONCE DAILY 16 g 3 03/26/20 20 Active gemfibrozil (LOPID) 600 MG tablet TAKE 1 TABLET BY MOUTH 2 TIMES DAILY, BEFORE BREAKFAST AND SUPPER 180 tablet 3 03/30/20 21 Active omeprazole (PRILOSEC) 20 MG capsule Take 1 (one) capsule by mouth once daily 90 capsule 1 04/20/20 21 Active tamsulosin (FLOMAX) 0.4 MG capsule TAKE ONE CAPSULE BY MOUTH EVERY DAY AFTER BREAKFAST AT THE SAME TIME EACH DAY 90 capsule 1 04/20/20 21 Active SITagliptin (JANUVIA) 100 MG tablet Take 1 (one) tablet by mouth once daily 90 tablet 3 06/13/20 21 Active Active Problems Problem Noted Date Diagnosed Date Macular degeneration 01/28/2021 Advanced atrophic nonexudati ve age-related macular degeneration of right eye with subfoveal involvement 04/05/2020 Overview (01/28/2021): Last Assessment & Plan: Pt ed. Prior smoker 25+ yr. Reviewed OCT images. No choroidal neovascular membrane (CNVM) both eyes (OU). Ivet given - pt ed to call immediately with any changes. RTC 6 mos DFE and macular OCT. Start AREDs vitamins. Last Assessment & Plan: Pt ed. Prior smoker 25+ yr. Reviewed OCT images. No choroidal neovascular membrane (CNVM) both eyes (OU). Ivet given - pt ed to call immediately with any changes. RTC 6 mos DFE and macular OCT. Start AREDs vitamins. Status post four vessel coronary artery bypass 0 10/13/2018 Pacemaker 09/23/2018 Overview (01/28/2021): Medtronic DDD Galion MRI pacemaker implanted on 09/23/18 for Mobitz II. [place] - Carelink-Ronan card Last Assessment & Plan: Normal pacemaker function. Benign prostatic hyperplasia with lower urinary tract symptoms 07/22/2018 Sleep-disordered breathing 07/22/2018 COPD (chronic obstructive pulmonary disease) Overview (09/18/2019): 10/01/18 Jennifer Lopez MD Internal Medicine Paroxysmal atrial fibrillation 11/08/2017 Overview (01/28/2021): Last Assessment & Plan: He is anticoagulated with warfarin, NOACs having been unaffordable for him. Splenic infarct 11/01/2017 Overview (01/28/2021): Last Assessment & Plan: This was almost certainly cardioembolic. For this reason, he requires anticoagulation. Once he has run out of his current supply of Eliquis, will begin warfarin 4 mg daily and monitor INRs. Second degree AV block 11/01/2017 Overview (01/28/2021): Last Assessment & Plan: Managed with pacemaker. Chronic low back pain with sciatica 10/05/2015 Essential hypertension 12/31/2014 Overview (01/28/2021): Last Assessment & Plan: Blood pressure is adequately controlled on current regimen. No change was made. Atherosclerosis of aorta 06/22/2014 Overview (01/28/2021): CXR 6- Overview: CXR 6- Old SD (myocardial infarction) 06/22/2014 Overview (01/28/2021): Dr Harvey 08-13-13 Overview: Dr Harvey 08-13-12 Hyperlipidemia 10/03/2010 Overview (01/28/2021): Last Assessment & Plan: On chronic lipid lowering therapy with good control. No changes made. CAD (coronary artery disease) 06/29/2010 Diabetes mellitus type 2 without retinopathy 03/2010 Overview (01/28/2021): 07/25/19 Marilee Rutledge MD Family Medicine Last Assessment & Plan: Pt ed. Stressed BG control (HbA1C<7) to reduce the risk for diabetic ocular complications. Resolved Problems Problem Noted Date Diagnosed Date Resolved Date Pseudophakia of both eyes 04/05/2020 Overview (01/28/2021): Last Assessment & Plan: Patient was educated on the intraocular lens (IOL) status. Follow. Last Assessment & Plan: Patient was educated on the intraocular lens (IOL) status. Follow. Glaucoma suspect of both eyes 04/05/2020 01/28/2021 Overview (01/28/2021): Last Assessment & Plan: Likely physiologic cupping - no significant RNFL thinning. Normal IOPs, no FHx. Monitor. Last Assessment & Plan: Likely physiologic cupping - no significant RNFL thinning. Normal IOPs, no FHx. Monitor. Incisional pain 01/16/2020 01/28/2021 Overview (02/02/2020): Last Assessment & Plan: Unclear to me if this is from his keloid or a wire. He is not interested in doing anything about it at this time, but is interested in having it evaluated in the winter to see if anything can be done. Pacemaker 09/23/2018 02/21/2019 Overview (02/21/2019): Medtronic DDD Kami MRI pacemaker implanted on 09/23/18 for Mobitz II. [place] - [employer]link-Ronan card Last Assessment & Plan: Pacemaker was interrogated today and is functioning normally. No atrial fibrillation was seen. He remains on warfarin because of his history of splenic infarct and postoperative atrial fibrillation. NOACs were cost prohibitive for him. Irritable bowel syndrome wit h both constipation and diarrhea 09/21/2018 01/28/2021 Bradycardia 09/20/2018 01/28/2021 Overview (01/28/2021): Overview: Added automatically from request for surgery [id number] Added automatically from request for surgery [id number] Paroxysmal atrial fibrillation 11/08/2017 08/06/2020 Overview (09/18/2019): 07/25/19 Marilee Rutledge MD Family Medicine Splenic infarct 11/01/2017 02/21/2019 Overview (02/21/2019): Last Assessment & Plan: This was almost certainly cardioembolic. For this reason, he requires anticoagulation. Once he has run out of his current supply of Eliquis, will begin warfarin 4 mg daily and monitor INRs. Diarrhea 08/25/2009 10/03/2017 Obesity 08/25/2009 12/08/2015 Hypertension 08/25/2009 12/31/2014 Immunizations Immunization Administration Dates Next Due INFLUENZA VACCINE, TRIV. (AF LURIA, FLUZONE TRIVALENT; 6MO+) (IIV3) 05/15/2012,05/03/2011,03/29/2010 Covid Endomedix primary monoval ent 12+ yr 0.3mL Purple cap 08/25/2020,08/06/2020 FLU VACCINE TRI IIV3 SPLIT PF IM (FLUVIRIN) 11/2014 INFLUENZA VACCINE 04/16/2013 INFLUENZA VACCINE, HIGH-DOSE , QUADR. (FLUZONE HIGH-DOSE QUADRIVALENT; 65Y+), 0.7 ML (HD-IIV4) 05/04/2020,06/23/2014 PNEUMOCOCCAL PPSV23 05/03/2011 Pneumococcal Pcv13 Conj 02/21/2019 Family History Medical History Relation Name Comments Cancer Father Kidney Disease Father Arthritis - Rheumatoid Mother Diabetes Mother Heart Failure Mother Hypercholesterolemia Mother Hypertension Mother Stroke Mother Cancer Sister 2 Relation Name Status Comments Father Mother Sister 1 Sister 2 Social History Tobacco Use Types Packs/Day Years Used Date Smoking Tobacco: Former Cigarettes 1 20 Smokeless Tobacco: Never Alcohol Use Standard Drinks/Week Comments No 0 (1 standard drink = 0.6 oz pur e alcohol) AUDIT-C Answer Date Recorded Q1: How often do you have a drink containing alc ohol? 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 Not on file Not on file Not on file Last Filed Vital Signs Vital Sign Reading Time Taken Comments Blood Pressure 138/80 01/28/2021 10:53 AM CDT Pulse 90 01/28/2021 10:53 AM CDT Temperature 36.9 C (98.5 F) 01/28/2021 10:53 AM CDT Respiratory Rate 18 01/28/2021 10:5 3 AM CDT Oxygen Saturation 96% 01/28/2021 10: 53 AM CDT Inhaled Oxygen Concentration - - Weight 106.7 kg (235 lb 3.2 oz) 021 10:53 AM CDT Height 182.9 cm (6') 01/28/2021 10:53 AM CDT Body Mass Index 31.9 01/28/2021 10:53 AM CDT Plan of Treatment Health Maintenance Due Date Last Done Comments ZOSTER VACCINE (1 of 2) 1994 Respiratory Syncytial Virus (RSV) Vaccine Pt: or over 60 yrs (1 - 1-dose 75+ series) 10/16/2019 DIABETES-FOOT EXAM WITH MONOFILAMENT 07/25/2020 07/25/2019, 05/30/2018, 05/29/2017, Additional history exists DIABETES-HGB A1C 08/03/2021 01/31/2021, 12/2019, 03/06/2019, Additional history exists DIABETES-SERUM CREATININE 01/31/20222020, 03/06/2019, 10/04/2017, Additional history exists PROSTATE CA SCREENING 01/31/2022 01/31/2021 , 10/04/2017, 04/06/2015 DIABETES RETINOPATHY SCREENING 11/11/2022 11/11/2020, 04/05/2020 (Done Outside Per Report), 01/21/2019, Additional history exists COVID-19 VACCINE ( season) 2024 08/25/2020, 08/06/2020 DEPRESSION SCREENING 06/18/2024 DIABETES - URINE PROTEIN SCREENING 06/18/2024 03/21/2016, 05/28/2012 MEDICARE AWV CALENDAR YEAR 2024 05/04/2020, 01/10/2018 INFLUENZA VACCINE (#1) 2025 0, 06/23/2014, 06/23/2014, Additional history exists PNEUMOCOCCAL VACCINE 50+ Completed 02/21/2019, 04/18 DTAP/TDAP/TD VACCINES Discontinued HEPATITIS B VACCINE Aged Out No longe r eligible based on patient's age to complete this topic HIB VACCINE Aged Out No longer eligi ble based on patient's age to complete this topic HPV VACCINE Aged Out No longer eligi ble based on patient's age to complete this topic MENINGOCOCCAL (Group B) VACCINE SHARED DECISION-MAKING Aged Out No longer eligible based on patient's age to complete this topic MENINGOCOCCAL GROUPS A/C/Y/W VACCINE Aged Out No longer eligible based on patient's age to complete this topic Goals Goal Patient Goal Type Associated Problems Recent Progress Patient-Stated? 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 Pure hypertriglyceridemia Coronary artery disease involving [place] coronary artery without angina pectoris, unspecified whether [place] or transplanted heart HEMOGLOBIN A1C Routine 01/31/2021 9:05 AM CDT Diabetes mellitus type 2 without retinopathy Pure hypertriglyceridemia Coronary artery disease involving [place] coronary artery without angina pectoris, unspecified whether [place] or transplanted heart HM DIABETES EYE EXAM Routine 11/11/2020 MICROALB/CREAT RATIO URINE RANDOM PANEL Routine 03/21/2016 9:53 AM CDT Controlled type 2 diabetes mellitus without complication, without long-term current use of insulin from Last 3 Months or Most Recently Relevant to Health Maintenance Results * (ABNORMAL) HEMOGLOBIN A1C (01/31/2021 9:05 AM CDT) Hemoglobin A1c 6.7(H) <5.7 % of total Hgb [facility] Comment: For someone without known diabetes, a hemoglobin A1c value of 6.5% or greater indicates that they may have diabetes and this should be confirmed with a follow-up test. For someone with known diabetes, a value <7% indicates that their diabetes is well controlled and a value greater than or equal to 7% indicates suboptimal control. A1c targets should be individualized based on duration of diabetes, age, comorbid conditions, and other considerations. Currently, no consensus exists regarding use of hemoglobin A1c for diagnosis of diabetes for children. REPORT COMMENT: FASTING:YES Test Performed at: [facility] [address] [address] [address] CHRISTINA PARRA DO,MPH Blood BLOOD SPECIMEN / Unknown 01/31/2021 9:05 AM CDT 01/31/2021 9:08 AM CDT us Taylor L Beltran MD LAB - CHEMISTRY ORDERABLES Fin al Result Performing Organization Address City/[facility]/ZIP Co il Phone Number [facility] [address] [place] [address] * (ABNORMAL) COMPREHENSIVE METABOLIC PANEL (01/31/2021 9:05 AM CDT) Glucose 142(H) 65 - 99 mg/dL [facility] Comment: Fasting reference interval For someone without known diabetes, a glucose value >125 mg/dL indicates that they may have diabetes and this should be confirmed with a follow-up test. BUN 16 7 - 25 mg/dL [facility] Creatinine 0.81 0.70 - 1.18 mg/dL [facility] Comment: For patients >49 years of age, the reference limit for Creatinine is approximately 13% higher for people identified as -[place]. eGFR by MDRD 86 > OR = 60 mL/min/1 .73m2 [facility] eGFR by MDRD 100 > OR = 60 mL/min/1 .73m2 [facility] BUN/Creatinine Ratio NOT APPLICABLE 6 - 22 (calc) [facility] Sodium 140 135 - 146 mmol/L [facility] Potassium 4.3 3.5 - 5.3 mmol/L [facility] Chloride 101 98 - 110 mmol/L [facility] CO2 30 20 - 32 mmol/L [facility] Calcium 9.7 8.6 - 10.3 mg/dL [facility] Protein Total 6.9 6.1 - 8.1 g/dL [facility] Albumin 4.2 3.6 - 5.1 g/dL [facility] Globulin Total 2.7 1.9 - 3.7 g/dL (calc) [facility] Albumin/Globulin Ratio 1.6 1.0 - 2.5 (calc) [facility] Bilirubin Total 0.6 0.2 - 1.2 mg/dL [facility] Alkaline Phosphatase 87 35 - 144 U/L [facility] AST 20 10 - 35 U/L [facility] ALT 19 9 - 46 U/L [facility] Comment: Test Performed at: [facility] [address] [facility] [place] [address] CHRISTINA PARRA DO,MPH Blood BLOOD SPECIMEN / Unknown 01/31/2021 9:05 AM CDT 01/31/2021 9:08 AM CDT Taylor Beltran MD LAB - CHEMISTRY ORDERABLES Fin al Result [facility] [address] [place] [address] * PROSTATE SPECIFIC ANTIGEN SCREEN (01/31/2021 9:05 AM CDT) PSA 0.7 < OR = 4.0 ng/mL [facility] Comment: The total PSA value from this assay system is standardized against the WHO standard. The test result will be approximately 20% lower when compared to the equimolar-standardized total PSA (Francisco [place]). Comparison of serial PSA results should be interpreted with this fact in mind. This test was performed using the Siemens chemiluminescent method. Values obtained from different assay methods cannot be used interchangeably. PSA levels, regardless of value, should not be interpreted as absolute evidence of the presence or absence of disease. Test Performed at: [facility] [address] [place] [address] CHRISTINA PARRA DO,MPH Blood BLOOD SPECIMEN / Unknown 01/31/2021 9:05 AM CDT 01/31/2021 9:08 AM CDT us Taylor Beltran MD LAB - CHEMISTRY ORDERABLES Fin al Result Performing Organization Address [facility] de Phone Number [facility] [address] [place] [address] * DIABETES EYE EXAM (11/11/2020) us Scanned Document HEALTH MAINTENANCE Final Result * (ABNORMAL) MICROALB/CREAT RATIO URINE RANDOM PANEL (03/21/2016 9:53 AM CDT) Creatinine Urine 67 mg/dL [facility] INSUR[facility] BILL Microalbumin Urine 2.8 mg/dL [facility] INSURANCE BILL Microalbumin/Crea tinine Ratio 42(H) <30 mg/g [facility] INSURANCE BILL Urine specimen (specimen) URINE SPECIMEN OBTAINED BY CLEAN CATCH PROCEDURE / Unknown 03/21/2016 9:53 AM CDT 03/21/2016 12:59 PM CDT Narrative Resulting Agency Comment [facility] [address] [place] [id number] us Mac Lopez MD LAB - URINE CHEMISTRY ORDERABLES Final Result [facility] INSURANCE BILL [address] [place] [address] from Last 3 Months or Most Recently Relevant to Health Maintenance Insurance MEDICARE [facility] Address: [address] [place] [address] AETNA MEDICARE ADV AETNA MEDICARE ADV SELF PAY NO INSURANCE Member Subscriber Plan / Payer (Ef fective for All Dates) Name:Velma Fuentes Member ID:Not on file Relation to Subscriber:Not on file Name:MACKVELMA Subscriber ID:Not on file Address: [address] [address] Payer ID:Not on file Group ID:Not on file Type:Self Pay Address: [place], [place] AETNA MEDICARE ADV SELF PAY NO INSURANCE Member Subscriber Plan / Payer (Ef fective for All Dates) Name:MichaelscottVelma hare Member ID:Not on file Relation to Subscriber:Not on file Name:VELMA FUENTES Subscriber ID:Not on file Address: [address] [place] [address] Payer ID:Not on file Group ID:Not on file Type:Self Pay Address: [place], [place] * Guarantor: VELMA FUENTES Account Type Relation to Patient Date of Phone Billing Address Personal/Family [address] [place] [address] AETNA MEDICARE ADV SELF PAY NO INSURANCE Member Subscriber Plan / Payer (Ef fective for All Dates) Name:Velma Fuentes Member ID:Not on file Relation to Subscriber:Not on file Name:VELMA FUENTES Subscriber ID:Not on file Address: [address] [place] [address] [place] [address] Payer ID:Not on file Group ID:Not on file Type:Self Pay Address: [place], [place] Care Teams Licensed Clinical Social Worker Relationship Specialty [place] [address] [address] PCP - General Internal Medicine 02/02/20 Elena Harvey MD Fish Trapper Cardiology 10/03/17
--- OUTSIDE RECORDS SUMMARY | 2025-01-03 13:48 | XMS_ITS | Encounter Summary ---
Author Organization [facility] Address [address] [place] [address] Care Team Providers Care Welding Manager Name Role Phone Mac Lopez MD Primary Care Provider [phone] Jennifer Lopez MD Primary Care Provider + Marilee Rutledge MD Primary Care Provider [phone] Taylor Beltran MD Primary Care Provider [phone] Elena Harvey MD Unavailable [phone] Fermin Marina MD Primary Care Provider [phone] Encounter Details Date Type Department Care Team (Late st Contact Info) Description 10/26/2017 Orders Only [facility] [place] [address] [place] [id number] Scanning, Provider Social History Tobacco Use Types Packs/Day Years Used Date Smoking Tobacco: Former Smokeless Tobacco: Former Alcohol Use Standard Drinks/Week Comments No 0 (1 standard drink = 0.6 oz pur e alcohol) Sex and Gender Information Value Date Recorded Sex Assigned at Not on file 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 Gender Identity Not on file Sexual Orientation Not on file documented as of this encounter Plan of Treatment Not on file documented as of this encounter Procedures Procedure Name Priority Date/Time Associated Diagnosis Comments CARDIOLOGY DOCUMENT SCAN 10/26/2017 documented in this encounter Results * Cardiology Document Scan (10/26/2017) Anatomical Region Laterality Modality Other us Provider Scanning CV CARDIAC SERVICES PROCEDURES Final Result documented in this encounter Visit Diagnoses Not on filedocumented in this encounter Care Teams Welding Manager Relationship Specialty Start Date End Date Mac Lopez MD [address] [facility] [address] [place] [address] PCP - General 09/15/16 10/31/17 Jennifer Lopez MD [address] [place] [address] PCP - General Internal Medicine 11/01/17 07/17/19 Marilee Rutledge MD [address] [place] [address] PCP - General Family Medicine 07/18/19 01/15/20 Taylor Beltran MD [address] [place] [address] PCP - General Internal Medicine 01/16/20 05/04/21 Fermin Marina MD [address] [facility] [address] [place] [address] PCP - General Family Medicine 05/05/21 Elena Harvey MD [address] [facility] [address] [place] [address] Consulting Physician Cardiology 04/04/21 documented as of this encounter
--- OUTSIDE RECORDS SUMMARY | 2025-01-03 13:48 | XMS_ITS | Clinical Summary ---
Author Organization [facility] Address [address] [place] [address] Care Team Providers Care Floral Manager Name Role Phone Fermin Marina MD Primary Care Provider [phone] Allergies No known active allergies Social History Tobacco Use Types Packs/Day Years Used Date Smoking Tobacco: Former Cigarettes Smokeless Tobacco: Never Alcohol Use Standard Drinks/Week Comments Not Currently 0 (1 standard drink = 0.6 oz pur e alcohol) Sex and Gender Information Value Date Recorded Sex Assigned at Not on file Legal Sex Male 5:44 AM CDT Gender Identity Not on file Sexual Orientation Not on file Last Filed Vital Signs Vital Sign Reading Time Taken Comments Blood Pressure 179/91 12/17/2021 8:00 AM CDT Pulse 70 12/17/2021 8:00 AM CDT Temperature 37.1 C (98.8 F) 12/17/2021 5:49 AM CDT Respiratory Rate 19 12/17/2021 8:00 AM CDT Oxygen Saturation 97% 12/17/2021 8:00 AM CDT Inhaled Oxygen Concentration - - Weight 102.1 kg (225 lb 1.4 oz) 12/17/2021 5:49 AM CDT Height 182.9 cm (6') 12/17/2021 5:49 AM CDT Body Mass Index 30.53 12/17/2021 5:49 AM CDT Plan of Treatment Health Maintenance Due Date Last Done Comments DTaP, Tdap and Td Vaccines ( 1 - Tdap) 10/16/1964 Zoster Vaccines (1 of 2) 1994 Annual Medicare Wellness Visit 2009 RSV Immunization or 60+ Years (1 - 1-dose 75+ series) 10/16/2019 COVID-19 Vaccine (2023-2 5 season) 2024 08/25/2020, 08/06/2020 Pneumococcal Vaccine: 50+ Years Completed 02/21/2019, 05/03/2011 Meningococcal B Vaccine Aged Out No l onger eligible based on patient's age to complete this topic Meningococcal Vaccine Aged Out No woo skylar eligible based on patient's age to complete this topic RSV Immunizations Under 20 Months Aged Out No longer eligible b ased on patient's age to complete this topic Insurance [employer] Care Teams Floral Manager Relationship Specialty Start Date End Date Fermin Marina MD [address] [address] PCP - General FAMILY PRACTICE 12/17/21
--- OUTSIDE RECORDS SUMMARY | 2025-01-03 13:48 | XMS_ITS | Referral Summary ---
Author Organization [facility] Address [address] [place] [address] Care Team Providers Care Space Systems Operations Manager Name Role Phone Elena Harvey MD Unavailable Fermin Marina MD Primary Care Provider [phone] Encounters Date Type Department Care Team Description 12/31/2024 Anticoagulation Visit [facility] Cardiology [address] [place] [address] [place] [phone] Jeanna Salomon RN Paroxysmal atrial fibrillation (CMS/HCC) (HCC) (Primary Dx); Chronic anticoagulation 12/30/2024 Telephone [facility] Cardiology [address] [place] [address] [place] [phone] Luis Ochoa MD INR order 12/03/2024 Anticoagulation Visit [facility] Cardiology at [address] [place] [address] Meme Latif RN Paroxysmal atrial fibrillation (CMS/HCC) (HCC) (Primary Dx); Chronic anticoagulation 10/31/2024 Anticoagulation Visit [facility] Cardiology [address] [place] [address] [address] [place] [phone] Jeanna Salomon RN Paroxysmal atrial fibrillation (CMS/HCC) (HCC) (Primary Dx); Chronic anticoagulation 10/22/2024 10:15 AM CDT Ancillary Procedure [facility] Cardiology [address] [place] [address] [place] [phone] Complete heart block (HCC) (Primary Dx); Paroxysmal atrial fibrillation (HCC); NICM (nonischemic cardiomyopathy) (HCC); Congestive heart failure, unspecified HF chronicity, unspecified heart failure type (HCC); Status post biventricular pacemaker from Last 3 Months Allergies Active Allergy Reactions Criticality Noted Date [...] mg SL tabletIndications: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 Anaya Uppstrom as he prefers a female tool and die technician. For EP, he will continue to come here and see Dr. Morales. Pseudophakia of both eyes 04/05/2020 Assessment & Plan (08/03/2022 4:31 PM FILM DEVELOPER): Patient was educated on the intraocular lens (IOL) status. Follow. Assessment & Plan (04/05/2020 3:46 PM CDT): Patient was educated on the intraocular lens (IOL) status. Follow. Diabetes mellitus type 2 without retinopathy Assessment & Plan (08/03/2022 4:31 PM FILM DEVELOPER): Pt ed. Stressed BG control (HbA1C<7) to [...] 04/05/2020 Assessment & Plan (08/03/2022 4:34 PM FILM DEVELOPER): Stable on OCT, monitor, cont areds, rtc [...] pacemaker 09/23/2018 Overview (05/03/2022): Medtronic Solara Quad PROPERTY LOSS INSURANCE CLAIM ADJUSTER-P imp on 12/26/21 for [id number]. [place]-EP/YekraQgiv-Card - [facility] Chronic RA/RV Leads from 09/23/18. [...] CN, Joe JA, Miguel KA, Aditi RJ, Foster A, Mundo PD, 2018 ACC/AHA/HRS Guideline on [...] physiologic ventricular activation (e.g., cardiac resynchronization therapy [PROPERTY LOSS INSURANCE CLAIM ADJUSTER] or His bundle pacing) over right ventricular pacing Assessment & Plan (01/17/2021 1:30 PM CDT): Normal pacemaker function. Assessment & Plan (07/19/2020 12:07 PM FILM DEVELOPER): Followed through the arrhythmia Center. Assessment & Plan (07/18/2019 12:18 PM FILM DEVELOPER): Normal function. Assessment & Plan (12/09/2018 11:56 [...] (chronic obstructive pulmonary disease) Paroxysmal atrial fibrillation ([facility]) 018 Assessment & Plan (12/26/2021 2:46 PM CDT): Paroxysmal atrial fibrillation has been rendered asymptomatic by way of pacemaker/complete heart block. However, the patient needs to remain anticoagulated for thromboprophylaxis. His chads Vasc score is 6. Assessment & Plan (01/17/2021 1:30 PM CDT): He is anticoagulated with warfarin, NOACs having been unaffordable for him. Assessment & Plan (07/19/2020 12:06 PM FILM DEVELOPER): Very low burden seen on pacemaker interrogation. He is on warfarin. Assessment & Plan (01/16/2020 11:33 AM CDT): Chronically anticoagulated. He is on warfarin as NOACs were not affordable. Offered that we could check into home testing, but he is happy going to the lab. Assessment & Plan (07/18/2019 12:15 PM FILM DEVELOPER): Continue warfarin, but it can be interrupted [...] company given his low income (he receives [place] this way). Alternatively, warfarin would be another option, albeit less convenient. Essential hypertension 02/04/2017 Assessment & Plan (09/09/2021 7:14 AM CDT): Blood pressure is controlled on current regimen which was not changed. Assessment & Plan (01/17/2021 1:29 PM CDT): Blood pressure is adequately controlled on current regimen. No change was made. Assessment & Plan (07/19/2020 12:05 PM FILM DEVELOPER): Blood pressure is adequately controlled on current regimen. Will change his prescription from 20 mg of lisinopril to 10 mg daily. Assessment & Plan (01/16/2020 11:32 AM CDT): Blood pressure is adequately controlled on current regimen. No change was made. Assessment & Plan (07/18/2019 12:16 PM FILM DEVELOPER): Blood pressure is adequately controlled on current [...] active. Assessment & Plan (07/22/2018 6:25 PM FILM DEVELOPER): Blood pressure is adequately controlled on current [...] sciatica 10/05/2015 Coronary artery disease invo lving [place] coronary artery of [place] heart without angina pectoris 06/03/2014 Overview (12/05/2017): Coronary arteriosclerosis in [place] artery Assessment & Plan (09/09/2021 7:14 AM CDT): Asymptomatic and with favorable Lexiscan. Assessment & Plan (01/17/2021 1:29 PM CDT): Asymptomatic. He is two years status post coronary artery bypass grafting. Assessment & Plan (07/19/2020 12:05 PM FILM DEVELOPER): No symptoms of myocardial ischemia. He does have some incisional discomfort and would like to see a surgeon when he is back in six months. He will schedule that appointment. Assessment & Plan (01/16/2020 11:31 AM CDT): Asymptomatic following bypass surgery. Continue aspirin and metoprolol. Assessment & Plan (07/18/2019 12:15 PM FILM DEVELOPER): No symptoms of myocardial ischemia. Continue aspirin. Assessment & Plan (12/09/2018 11:54 AM CDT): No symptoms of myocardial ischemia. Continue low-dose aspirin. Assessment & Plan (09/10/2018 6:42 PM CDT): Asymptomatic following recent surgery. Continue low-dose aspirin. Begin cardiac rehab. For convenience will switch to metoprolol succinate so he will not have to split pills. Assessment & Plan (07/22/2018 6:25 PM FILM DEVELOPER): Cardiac catheterization today reveals that his coronary [...] (09/23/2018): Added automatically from request for surgery [id number] Multi-vessel coronary artery stenosis 07/22/2018 01/25/2022 NSTEMI (non-ST elevated myoc ardial infarction) ([facility]) 07/22/2018 01/25/2022 Second degree AV block [...] made. Assessment & Plan (07/19/2020 12:06 PM FILM DEVELOPER): On chronic lipid lowering therapy with good control. No changes made. Assessment & Plan (01/16/2020 11:32 AM CDT): He is on high-intensity statin therapy. Assessment & Plan (07/18/2019 12:16 PM FILM DEVELOPER): On chronic lipid lowering therapy with good control. No changes made. Assessment & Plan (12/09/2018 11:55 AM CDT): On chronic lipid lowering therapy with good control. No changes made. Assessment & Plan (09/10/2018 6:41 PM CDT): On chronic lipid lowering therapy with good control. No changes made. Assessment & Plan (07/22/2018 7:06 PM FILM DEVELOPER): Lipid abnormalities are {improving/stable/worsenin}. {plan; hyperlipidemia for MU/POC:[id number]} Lipids will be reassessed {plan; follow-up 3 months/6 months/1 year:[id number]}. Assessment & Plan (03/12/2018 3:03 PM CDT): [...] (CMS/HCC) 06/22/2014 01/25/2022 Overview (12/05/2017): Overview: CXR 14 Old NC (myocardial infarction) 06/22/2014 01/25/2022 Overview (12/05/2017): Overview: Dr Harvey 2-26-13 Social History Tobacco Use Types Packs/Day Years Used Date Smoking Tobacco: Former Smokeless Tobacco: Former Tobacco Cessation:Counseling Given: Not Answered Alcohol Use Standard Drinks/Week Comments No 0 (1 standard drink = 0.6 oz pur e alcohol) Sex and Gender Information Value Date Recorded Sex Assigned at Not on file Legal Sex Male 9:21 PM FILM DEVELOPER Gender Identity Not on file Sexual Orientation Not on file Last Filed Vital Signs Vital Sign Reading Time Taken Comments Blood Pressure 142/62 08/21/2024 11:24 AM FILM DEVELOPER Pulse 78 08/21/2024 11:24 AM FILM DEVELOPER Temperature 37.5 C (99.5 F) 12/26/2021 12:00 PM CDT Respiratory Rate 16 12/26/2021 6:45 PM CDT Oxygen Saturation 96% 08/21/2024 11:24 AM FILM DEVELOPER Inhaled Oxygen Concentration - - Weight 101.2 kg (223 lb) 08/21/2024 11:24 AM FILM DEVELOPER Height 182.9 cm (6') 08/21/2024 11:24 AM FILM DEVELOPER Body Mass Index 30.24 08/21/2024 11:24 AM FILM DEVELOPER Plan of Treatment Not on file Medical Devices Implanted Type Area Floral Arranger Device Identifier Shelf Expiration Date Model / Serial / Lot Medtronic Cardiac Rhythm Mgmt 5076-58 Capsurefix Novus 6.2fr 2mm 58cm Bipolar Screw In Implantable - [id number] - [id number] Implanted:Qty: 1 on 09/23/2018 by Feliberto Morales MD at [facility] Lead Left: Heart Medtronic Cardiac Rhythm Mgmt [id number] 02/07/2020 5076-58 / [id number] / Medtronic Cardiac Rhythm Mgmt 5076-52 Capsurefix Novus 6.2fr 2mm 52cm Bipolar Screw In Implantable Latex Free - [id number] - [id number] Implanted:Qty: 1 on 09/23/2018 by Feliberto Morales MD at [facility] Lead Left: Heart Medtronic Cardiac Rhythm Mgmt [id number] 06/01/2020 5076-52 / [id number] / Attain Stability Quad Mri Surescan Active Fixation Lv Lead 88cm [id number] - [id number] - [id number] Implanted:Qty: 1 on 12/26/2021 by Feliberto Morales MD at [facility] Lead Medtronic Inc [id number] 09/14/2023 [id number] / [id number] / Medtronic Inc Solara Mri Surescan Bluetooth 46.5x59mm Connector Hole Radiopaque [id number] - [id number] - [id number] Implanted:Qty: 1 on 12/26/2021 by Feliberto Morales MD at [facility] Pacemaker Medtronic Inc 02/12/2023 [id number] / [id number] / Explanted Type Area Floral Arranger Device Identifier Shelf Expiration Date Model / Serial / Lot Medtronic Cardiac Rhythm Mgmt [id number] Kami S Mri Surescan 50.8x46.6mm 2 Chamber 7.4mm Pacemaker 22.5gm - [id number] - [id number] Implanted:Qty : 1 on 09/23/2018 by Feliberto Morales MD at [facility] Explanted:Qty : 1 on 12/26/2021 at [facility] Pacemaker Left: Heart Medtronic Cardiac Rhythm Mgmt [id number] 02/13/2020 [id number] / [id number] / Procedures Procedure Name Priority Date/Time [...] CDT HEMOGLOBIN A1C Routine 07/22/2018 5:57 PM FILM DEVELOPER from Last 3 Months or Most Recently Relevant to Health Maintenance Results * (ABNORMAL) Protime-INR (12/30/2024 9:48 AM CDT) INR 2.7(H) [facility] Comment: Reference Range 0.9-1.1 Moderate-intensity Warfarin Therapy 2.0-3.0 Higher-intensity Warfarin Therapy 3.0-4.0 PT 26.8(H) 9.0 - 11.5 sec [facility] Comment: For additional information, please refer to http://MineWhat.[email or web address]/faq/[email or web address] (This link is being provided for informational/ educational purposes only.) Blood 12/30/2024 9:48 AM CDT 12/30/2024 9:49 AM CDT Narrative [facility] - 12/30/2024 5:33 PM CDT FASTING:NO FASTING: NO Luis Ochoa MD LAB BLOOD ORDERABLES Fin al Result Performing Organization Address [facility] Co de Phone Number [facility] [address] [place] [phone] * (ABNORMAL) Protime-INR (12/02/2024 9:34 AM CDT) INR 2.1(H) [facility] Comment: Reference Range 0.9-1.1 Moderate-intensity Warfarin Therapy 2.0-3.0 Higher-intensity Warfarin Therapy 3.0-4.0 PT 21.7(H) 9.0 - 11.5 sec [facility] Comment: For additional information, please refer to http://MineWhat.uMix.TV/faq/[email or web address] (This link is being provided for informational/ educational purposes only.) Blood 12/02/2024 9:34 AM CDT 12/02/2024 9:38 AM CDT Narrative [facility] - 12/02/2024 4:47 PM CDT FASTING:NO FASTING: NO Kirill Lopez MD LAB BLOOD ORDERABLES Fi nal Result Performing Organization Address [facility] Co de Phone Number [facility] [address] [place] [phone] * (ABNORMAL) Protime-INR (10/30/2024 9:35 AM CDT) INR 2.9(H) [facility] Comment: Reference Range 0.9-1.1 Moderate-intensity Warfarin Therapy 2.0-3.0 Higher-intensity Warfarin Therapy 3.0-4.0 PT 28.5(H) 9.0 - 11.5 sec [facility]is Erickson Comment: For additional information, please refer to http://education.uMix.TV/faq/[email or web address] (This link is being provided for informational/ educational purposes only.) Blood 10/30/2024 9:35 AM CDT 10/30/2024 9:35 AM CDT Kirill Lopez MD LAB BLOOD ORDERABLES Fi nal Result [id number] [address] [place] [address] * DEVICE CHECK - REMOTE (10/22/2024 9:22 AM CDT) Anatomical Region Laterality Modality Other Narrative 01/01/2025 7:46 AM CDT Medtronic Solara Quad PROPERTY LOSS INSURANCE CLAIM ADJUSTER-P imp on 12/26/21 for NEHX-LSA-LJD. Andrew-EP/[place]-Yaakov - [facility] Chronic RA/RV Leads from 09/23/18. New LV Lead 12/26/21. Routine DDDR Pacemaker Remote. Transmission attached. Battery status: 2.92 V, 2.2 years remaining battery life to [place]. Stable lead impedances, pacing and sensing thresholds. 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 No Ventricular high rate episodes detected. Medications: Warfarin, ASA 81 mg, metoprolol 25 mg See scanned report. Office pacemaker follow up: 04/29/25 [facility] remote f/u 01/28/25. Amadeo Pinon, [place] Anaya Conrad MD [facility] PROCEDU RES Final Result * POCT lipid panel (11/06/2022 3:10 PM CDT) Cholesterol, POC 141 mg/dL HDL, POC 43 mg/dL Triglycerides, POC 179 mg/dL LDL Cholesterol POC 63 mg/dL Chol/HDL Ratio, POC 1.5 Non-HDL Cholesterol, POC 98 mg/dL Cholesterol Total, POC 141 mg/dL Capillary blood 11/06/2022 3 :10 PM CDT us Anaya Conrad MD POINT OF CARE TEST ORDERABL ES Final Result * eGFR (09/24/2018 5:41 AM CDT) eGFR 101 mL/min/1.7 3 m2 [facility] Comment: Interpretive Data Reference Interval Normal >/= 90 mL/min/1.73m2 Mildly decreased* 60 - 89 mL/min/1.73m2 Mildly to moderately decreased 45 - 59 mL/min/1.73m2 Moderately to severely decreased 30 - 44 mL/min/1.73m2 Severely decreased 15 - 29 mL/min/1.73m2 Kidney Failure < 15 mL/min/1.73m2 *Relative to young adult level If -Latvian multiply value by 1.16. Estimated glomerular filtration [...] AM CDT 09/24/2018 6:35 AM CDT Narrative [facility] - 09/24/2018 7:04 AM CDT us Feliberto Morales MD LAB BLOOD ORDERABLES Fi nal Result [facility] [address] [place] [address] * (ABNORMAL) Hemoglobin A1c (07/22/2018 5:57 PM FILM DEVELOPER) Hgb A1C 6.8(H) 4.0 - 5.6 % [facility] Estimated Average Glucose 148 mg/dL [facility] Comment: The ADA recommends reporting an estimated Average Glucose (eAG) with all Hemoglobin A1c results using the equation derived from a study of 507 normal and diabetic adults. Minority populations were underrepresented and children were not included. (Diabetes Care 31:1836-4061, 2008). The eAG is not equivalent to a fasting glucose. Blood specimen (specimen) 07/22/2018 5:57 PM FILM DEVELOPER 07/22/2018 6:02 PM FILM DEVELOPER Narrative [facility] - 07/22/2018 6:36 PM FILM DEVELOPER us Luis Sánchez MD LAB BLOOD ORDERABLES Final Result [facility] [address] [place] [address] from Last 3 Months or Most Recently Relevant to Health Maintenance Insurance [facility] MEDICARE [facility] ADVANT [facility] Advance Directives For more information, please contact: [phone] * Full Code (Latest Code Status on File) Date Activated Date Inactivated Comments 09/20/2018 7:34 PM 09/24/2018 2:37 PM * Full Code Date Activated Date Inactivated Comments 07/29/2018 6:37 PM 09/20/2018 2:29 PM * Full Code Date Activated Date Inactivated Comments 07/23/2018 12:51 PM 07/27/2018 5:02 PM * Full Code Date Activated Date Inactivated Comments 07/22/2018 5:10 PM 07/23/2018 12:51 PM Care Teams Space Systems Operations Manager Relationship Specialty Start Date End Date Fermin Marina MD [address] [place] [address] PCP - General Family Medicine 05/05/21 Elena Harvey MD [address] [place] [address] Consulting Physician Cardiology 04/04/21
[2025-01-03 14:25] VITALS: BP 180/77; PULSE 85; RESP 22; TEMP 36.3; O2SAT 97
[2025-01-03 17:00] VITALS: BP 167/79; PULSE 77; RESP 13; O2SAT 97
--- NOTE | 2025-01-03 17:00 | ECG_ITS ---
Test Date: 2025-01-03 17:04:55 Measurements Intervals [place] Rate: 78 P: 72 [place]: 120 QRS: 130 QRSD: 139 T: 17 QT: 425 QTc: 485 Interpretive Statements ELECTRONIC ATRIAL PACEMAKER ELECTRONIC VENTRICULAR PACEMAKER ABNORMAL RHYTHM ECG Compared to ECG 04/09/2024 05:26:36 No significant changes Electronically Signed On 01-04-2025 08:09:42 CDT by Luis Ochoa M.D.
[2025-01-03 17:13] VITALS: BP 157/81; PULSE 76; RESP 19; O2SAT 99
[2025-01-03 17:16] VITALS: BP 157/81; PULSE 79; RESP 17; O2SAT 98
--- OUTSIDE RECORDS SUMMARY | 2025-01-03 17:26 | XMS_ITS | Clinical Summary ---
Author Organization 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 For EP, he will continue to come here and see Dr. Morales. Pseudophakia of both eyes 04/05/2020 Assessment & Plan (08/03/2022 4:31 PM CUSTOMER OPERATIONS INTERN): Patient was educated on the intraocular lens (IOL) status. Follow. Assessment & Plan (04/05/2020 3:46 PM CDT): Patient was educated on the intraocular lens (IOL) status. Follow. Diabetes mellitus type 2 without retinopathy Assessment & Plan (08/03/2022 4:31 PM CUSTOMER OPERATIONS INTERN): Pt ed. Stressed BG control (HbA1C<7) to [...] 04/05/2020 Assessment & Plan (08/03/2022 4:34 PM CUSTOMER OPERATIONS INTERN): Stable on OCT, monitor, cont areds, rtc [...] pacemaker 09/23/2018 Overview (05/03/2022): Medtronic Solara Quad LIPSTICK MOLDER-P imp on 12/26/21 for [id number]. Andrew-EP/[facility] - [facility]link Chronic RA/RV Leads from [...] physiologic ventricular activation (e.g., cardiac resynchronization therapy [LIPSTICK MOLDER] or His bundle pacing) over right ventricular pacing Assessment & Plan (01/17/2021 1:30 PM CDT): Normal pacemaker function. Assessment & Plan (07/19/2020 12:07 PM CUSTOMER OPERATIONS INTERN): Followed through the arrhythmia Center. Assessment & Plan (07/18/2019 12:18 PM CUSTOMER OPERATIONS INTERN): Normal function. Assessment & Plan (12/09/2018 11:56 [...] him. Assessment & Plan (07/19/2020 12:06 PM CUSTOMER OPERATIONS INTERN): Very low burden seen on pacemaker interrogation. He is on warfarin. Assessment & Plan (01/16/2020 11:33 AM CDT): Chronically anticoagulated. He is on warfarin as NOACs were not affordable. Offered that we could check into home testing, but he is happy going to the lab. Assessment & Plan (07/18/2019 12:15 PM CUSTOMER OPERATIONS INTERN): Continue warfarin, but it can be interrupted [...] made. Assessment & Plan (07/19/2020 12:05 PM CUSTOMER OPERATIONS INTERN): Blood pressure is adequately controlled on current regimen. Will change his prescription from 20 mg of lisinopril to 10 mg daily. Assessment & Plan (01/16/2020 11:32 AM CDT): Blood pressure is adequately controlled on current regimen. No change was made. Assessment & Plan (07/18/2019 12:16 PM CUSTOMER OPERATIONS INTERN): Blood pressure is adequately controlled on current [...] active. Assessment & Plan (07/22/2018 6:25 PM CUSTOMER OPERATIONS INTERN): Blood pressure is adequately controlled on current [...] sciatica 10/05/2015 Coronary artery disease invo lving inaja coronary artery of inaja heart without angina pectoris 06/03/2014 Overview (12/05/2017): Coronary arteriosclerosis in inaja artery Assessment & Plan (09/09/2021 7:14 AM CDT): Asymptomatic and with favorable Lexiscan. Assessment & Plan (01/17/2021 1:29 PM CDT): Asymptomatic. He is two years status post coronary artery bypass grafting. Assessment & Plan (07/19/2020 12:05 PM CUSTOMER OPERATIONS INTERN): No symptoms of myocardial ischemia. He does have some incisional discomfort and would like to see a surgeon when he is back in six months. He will schedule that appointment. Assessment & Plan (01/16/2020 11:31 AM CDT): Asymptomatic following bypass surgery. Continue aspirin and metoprolol. Assessment & Plan (07/18/2019 12:15 PM CUSTOMER OPERATIONS INTERN): No symptoms of myocardial ischemia. Continue aspirin. Assessment & Plan (12/09/2018 11:54 AM CDT): No symptoms of myocardial ischemia. Continue low-dose aspirin. Assessment & Plan (09/10/2018 6:42 PM CDT): Asymptomatic following recent surgery. Continue low-dose aspirin. Begin cardiac rehab. For convenience will switch to metoprolol succinate so he will not have to split pills. Assessment & Plan (07/22/2018 6:25 PM CUSTOMER OPERATIONS INTERN): Cardiac catheterization today reveals that his coronary [...] (09/23/2018): Added automatically from request for surgery [id number] Multi-vessel coronary artery stenosis 07/22/2018 01/25/2022 NSTEMI (non-ST elevated myoc ardial infarction) ([facility]) 07/22/2018 01/25/2022 Second degree AV block [...] made. Assessment & Plan (07/19/2020 12:06 PM CUSTOMER OPERATIONS INTERN): On chronic lipid lowering therapy with good control. No changes made. Assessment & Plan (01/16/2020 11:32 AM CDT): He is on high-intensity statin therapy. Assessment & Plan (07/18/2019 12:16 PM CUSTOMER OPERATIONS INTERN): On chronic lipid lowering therapy with good control. No changes made. Assessment & Plan (12/09/2018 11:55 AM CDT): On chronic lipid lowering therapy with good control. No changes made. Assessment & Plan (09/10/2018 6:41 PM CDT): On chronic lipid lowering therapy with good control. No changes made. Assessment & Plan (07/22/2018 7:06 PM CUSTOMER OPERATIONS INTERN): Lipid abnormalities are {improving/stable/worsenin}. {plan; hyperlipidemia for MU/POC:[id number]} Lipids will be reassessed {plan; follow-up 3 months/6 months/1 year:[id number]}. Assessment & Plan (03/12/2018 3:03 PM CDT): [...] 01/25/2022 Overview (12/05/2017): Overview: CXR 6-29-14 [place] (myocardial infarction) 06/22/2014 01/25/2022 Overview (12/05/2017): Overview: Dr Harvey 2-26-13 Encounters Date Type Department Care Team Description 12/31/2024 Anticoagulation Visit [facility] [address] [place] [address] Jeanna Salomon RN Paroxysmal atrial fibrillation (CMS/HCC) (HCC) (Primary Dx); Chronic anticoagulation 12/30/2024 Telephone [facility] [address] [place] [address] [place] [phone] Luis Ochoa MD INR order 12/03/2024 Anticoagulation Visit [facility] at [address] [place] [address] Meme Latif RN Paroxysmal atrial fibrillation (CMS/HCC) (HCC) (Primary Dx); Chronic anticoagulation 10/31/2024 Anticoagulation Visit [facility] [address] [place] [address] Jeanna Salomon RN Paroxysmal atrial fibrillation (CMS/HCC) (HCC) (Primary Dx); Chronic anticoagulation 10/22/2024 10:15 AM CDT Ancillary Procedure [facility] [address] [place] [address] [place] [phone] Complete heart block (HCC) (Primary Dx); [...] on file Legal Sex Male 9:21 PM CUSTOMER OPERATIONS INTERN Gender Identity Not on file Sexual Orientation Not on file Obstetrics History Last Filed Vital Signs Vital Sign Reading Time Taken Comments Blood Pressure 142/62 08/21/2024 11:24 AM CUSTOMER OPERATIONS INTERN Pulse 78 08/21/2024 11:24 AM CUSTOMER OPERATIONS INTERN Temperature 37.5 C (99.5 F) 12/26/2021 12:00 PM CDT Respiratory Rate 16 12/26/2021 6:45 PM CDT Oxygen Saturation 96% 08/21/2024 11:24 AM CUSTOMER OPERATIONS INTERN Inhaled Oxygen Concentration - - Weight 101.2 kg (223 lb) 08/21/2024 11:24 AM CUSTOMER OPERATIONS INTERN Height 182.9 cm (6') 08/21/2024 11:24 AM CUSTOMER OPERATIONS INTERN Body Mass Index 30.24 08/21/2024 11:24 AM CUSTOMER OPERATIONS INTERN Plan of Treatment Health Maintenance Due Date [...] 02/21/2019, 04/18 Medical Devices Implanted Type Area Lease Picker Device Identifier Shelf Expiration Date Model / Serial / Lot Medtronic Cardiac Rhythm Mgmt 5076-58 Capsurefix Novus 6.2fr 2mm 58cm Bipolar Screw In Implantable - [id number] - [id number] Implanted:Qty: 1 on 09/23/2018 by Feliberto Morales MD at [facility] Lead Left: Heart Medtronic Cardiac Rhythm Mgmt [id number] 02/07/2020 5076-58 / [id number] / Medtronic Cardiac Rhythm Mgmt 5076-52 Capsurefix Novus 6.2fr 2mm 52cm Bipolar Screw In Implantable Latex Free - [id number] - [id number] Implanted:Qty: 1 on 09/23/2018 by Feliberto Morales MD at [facility] Lead Left: Heart Medtronic Cardiac Rhythm Mgmt [id number] 06/01/2020 5076-52 / [id number] / Attain Stability Quad Mri Surescan Active Fixation Lv Lead 88cm [id number] - [id number] - [id number] Implanted:Qty: 1 on 12/26/2021 by Feliberto Morales MD at [facility] Lead Medtronic Inc [id number] 09/14/2023 [id number] / [id number] / Medtronic Inc Solara Mri Surescan Bluetooth 46.5x59mm Connector Hole Radiopaque [id number] - [id number] - [id number] Implanted:Qty: 1 on 12/26/2021 by Feliberto Morales MD at [facility] Pacemaker Medtronic Inc 02/12/2023 [id number] / [id number] / Explanted Type Area Lease Picker Device Identifier Shelf Expiration Date Model / Serial / Lot Medtronic Cardiac Rhythm Mgmt [id number] Kami S Mri Surescan 50.8x46.6mm 2 Chamber 7.4mm Pacemaker 22.5gm - [id number] - [id number] Implanted:Qty : 1 on 09/23/2018 by Feliberto Morales MD at [facility] Explanted:Qty : 1 on 12/26/2021 at [facility] Pacemaker Left: Heart Medtronic Cardiac Rhythm Mgmt [id number] 02/13/2020 [id number] / [id number] / Procedures Procedure Name Priority Date/Time [...] CDT HEMOGLOBIN A1C Routine 07/22/2018 5:57 PM CUSTOMER OPERATIONS INTERN from Last 3 Months or Most Recently Relevant to Health Maintenance Results * (ABNORMAL) Protime-INR (12/30/2024 9:48 AM CDT) INR 2.7(H) [facility]SD[facility] Erickson Comment: Reference Range 0.9-1.1 Moderate-intensity Warfarin Therapy 2.0-3.0 Higher-intensity Warfarin Therapy 3.0-4.0 PT 26.8(H) 9.0 - 11.5 sec [facility] Comment: For additional information, please refer to http://education.[employer]/faq/SGN167 (This link is being provided for informational/ educational purposes only.) Blood 12/30/2024 9:48 AM CDT 12/30/2024 9:49 AM CDT Narrative [facility] - 12/30/2024 5:33 PM CDT FASTING:NO FASTING: NO Luis Ochoa MD LAB BLOOD ORDERABLES Fin al Result Performing Organization Address [facility] Co de Phone Number [facility] [address] [place] [address] * (ABNORMAL) Protime-INR (12/02/2024 9:34 AM CDT) INR 2.1(H) [facility] Comment: Reference Range 0.9-1.1 Moderate-intensity Warfarin Therapy 2.0-3.0 Higher-intensity Warfarin Therapy 3.0-4.0 PT 21.7(H) 9.0 - 11.5 sec [facility] Comment: For additional information, please refer to [email or web address]/[email or web address] (This link is being provided for informational/ educational purposes only.) Blood 12/02/2024 9:34 AM CDT 12/02/2024 9:38 AM CDT Narrative [facility] - 12/02/2024 4:47 PM CDT FASTING:NO FASTING: NO Kirill Lopez MD LAB BLOOD ORDERABLES Fi nal Result Performing Organization Address [facility] de Phone Number [facility] [address] [place] [address] * (ABNORMAL) Protime-INR (10/30/2024 9:35 AM CDT) INR 2.9(H) [facility] Comment: Reference Range 0.9-1.1 Moderate-intensity Warfarin Therapy 2.0-3.0 Higher-intensity Warfarin Therapy 3.0-4.0 PT 28.5(H) 9.0 - 11.5 sec [facility] Comment: For additional information, please refer to [email or web address]/faq/VBV735 (This link is being provided for informational/ educational purposes only.) Blood 10/30/2024 9:35 AM CDT 10/30/2024 9:35 AM CDT Kirill Lopez MD LAB BLOOD ORDERABLES Fi nal Result [facility] [address] [place] [address] * DEVICE CHECK - REMOTE (10/22/2024 9:22 AM CDT) Anatomical Region Laterality Modality Other Narrative 01/01/2025 7:46 AM CDT Medtronic Solara Quad LIPSTICK MOLDER-P imp on 12/26/21 for [id number]. [facility] - [facility] Chronic RA/RV Leads from 09/23/18. New LV Lead 12/26/21. Routine DDDR Pacemaker Remote. Transmission attached. Battery status: 2.92 V, 2.2 years remaining battery life to [place]. Stable lead impedances, pacing and sensing thresholds. Presenting rhythm: AP/BV with PACs AP-74.8%, ASH WORKER-99.7% No AT/AF episodes noted. No Ventricular high [...] AM CDT) eGFR 101 mL/min/1.7 3 m2 [facility] Comment: Interpretive Data Reference Interval Normal >/= 90 mL/min/1.73m2 Mildly decreased* 60 - 89 mL/min/1.73m2 Mildly to moderately decreased 45 - 59 mL/min/1.73m2 Moderately to severely decreased 30 - 44 mL/min/1.73m2 Severely decreased 15 - 29 mL/min/1.73m2 Kidney Failure < 15 mL/min/1.73m2 *Relative to young adult level If -Gambian multiply value by 1.16. Estimated glomerular filtration [...] AM CDT 09/24/2018 6:35 AM CDT Narrative [facility] - 09/24/2018 7:04 AM CDT us Feliberto Morales MD LAB BLOOD ORDERABLES Fi nal Result [facility] [address] [place] [address] * (ABNORMAL) Hemoglobin A1c (07/22/2018 5:57 PM CUSTOMER OPERATIONS INTERN) Hgb A1C 6.8(H) 4.0 - 5.6 % [facility] Estimated Average Glucose 148 mg/dL [facility] Comment: The ADA recommends reporting an estimated Average Glucose (eAG) with all Hemoglobin A1c results using the equation derived from a study of 507 normal and diabetic adults. Minority populations were underrepresented and children were not included. (Diabetes Care 31:7655-7003, 2008). The eAG is not equivalent to a fasting glucose. Blood specimen (specimen) 07/22/2018 5:57 PM CUSTOMER OPERATIONS INTERN 07/22/2018 6:02 PM CUSTOMER OPERATIONS INTERN Narrative [facility] - 07/22/2018 6:36 PM CUSTOMER OPERATIONS INTERN Luis Sánchez MD LAB BLOOD ORDERABLES Final Result [facility] [address] [place] [address] from Last 3 Months or Most Recently Relevant to Health Maintenance Insurance [facility] MEDICARE [facility] Advance Directives For more information, please contact: [phone] * Full Code (Latest Code Status on File) Date Activated Date Inactivated Comments 09/20/2018 7:34 PM 09/24/2018 2:37 PM * Full Code Date Activated Date Inactivated Comments 07/29/2018 6:37 PM 09/20/2018 2:29 PM * Full Code Date Activated Date Inactivated Comments 07/23/2018 12:51 PM 07/27/2018 5:02 PM * Full Code Date Activated Date Inactivated Comments 07/22/2018 5:10 PM 07/23/2018 12:51 PM Care Teams Yard Clerk Relationship Specialty Start Date End Date Fermin Marina MD [address] [place] [address] PCP - General Family Medicine 05/05/21 Elena Harvey MD [address] [place] [address] Consulting Physician Cardiology 04/04/21
--- OUTSIDE RECORDS SUMMARY | 2025-01-03 17:26 | XMS_ITS | Referral Summary ---
Author Organization [facility] Address [address] [place] [address] Care Team Providers Care Relationship Banker Name Role Phone Elean Harvey MD Unavailable Fermin Marina MD Primary Care Provider Encounters Date Type Department Care Team Description 12/31/2024 Anticoagulation Visit [facility] Cardiology [address] [place] [address] [place] [phone] Jeanna Salomon RN Paroxysmal atrial fibrillation (CMS/HCC) (HCC) (Primary Dx); Chronic anticoagulation 12/30/2024 Telephone [facility] Cardiology [address] [place] [address] [place] [phone] Luis Ochoa MD INR order 12/03/2024 Anticoagulation Visit [facility] Cardiology at [address] [place] [address] Meme Latif RN Paroxysmal atrial fibrillation (CMS/HCC) (HCC) (Primary Dx); Chronic anticoagulation 10/31/2024 Anticoagulation Visit [facility] Cardiology [address] [place] [address] [address] [place] [phone] Jeanna Salomon RN Paroxysmal atrial fibrillation (CMS/HCC) (HCC) (Primary Dx); Chronic anticoagulation 10/22/2024 10:15 AM CDT Ancillary Procedure [facility] Cardiology [address] [place] [address] [place] [phone] Complete heart block (HCC) (Primary Dx); Paroxysmal [...] mg SL tabletIndications: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 Anaya Uppstrom as he prefers a female vegetable cook. For EP, he will continue to come here and see Dr. Morales. Pseudophakia of both eyes 04/05/2020 Assessment & Plan (08/03/2022 4:31 PM SEWAGE TREATMENT PLANT OPERATOR): Patient was educated on the intraocular lens (IOL) status. Follow. Assessment & Plan (04/05/2020 3:46 PM CDT): Patient was educated on the intraocular lens (IOL) status. Follow. Diabetes mellitus type 2 without retinopathy Assessment & Plan (08/03/2022 4:31 PM SEWAGE TREATMENT PLANT OPERATOR): Pt ed. Stressed BG control (HbA1C<7) to [...] 04/05/2020 Assessment & Plan (08/03/2022 4:34 PM SEWAGE TREATMENT PLANT OPERATOR): Stable on OCT, monitor, cont areds, rtc [...] pacemaker 09/23/2018 Overview (05/03/2022): Medtronic Solara Quad TRENCH DIGGER HELPER-P imp on 12/26/21 for [id number]. [employer]/[employer] Rx-Card - [facility] Chronic RA/RV Leads from 09/23/18. [...] physiologic ventricular activation (e.g., cardiac resynchronization therapy [TRENCH DIGGER HELPER] or His bundle pacing) over right ventricular pacing Assessment & Plan (01/17/2021 1:30 PM CDT): Normal pacemaker function. Assessment & Plan (07/19/2020 12:07 PM SEWAGE TREATMENT PLANT OPERATOR): Followed through the arrhythmia Center. Assessment & Plan (07/18/2019 12:18 PM SEWAGE TREATMENT PLANT OPERATOR): Normal function. Assessment & Plan (12/09/2018 11:56 [...] (chronic obstructive pulmonary disease) Paroxysmal atrial fibrillation ([facility]) 018 Assessment & Plan (12/26/2021 2:46 PM CDT): Paroxysmal atrial fibrillation has been rendered asymptomatic by way of pacemaker/complete heart block. However, the patient needs to remain anticoagulated for thromboprophylaxis. His chads Vasc score is 6. Assessment & Plan (01/17/2021 1:30 PM CDT): He is anticoagulated with warfarin, NOACs having been unaffordable for him. Assessment & Plan (07/19/2020 12:06 PM SEWAGE TREATMENT PLANT OPERATOR): Very low burden seen on pacemaker interrogation. He is on warfarin. Assessment & Plan (01/16/2020 11:33 AM CDT): Chronically anticoagulated. He is on warfarin as NOACs were not affordable. Offered that we could check into home testing, but he is happy going to the lab. Assessment & Plan (07/18/2019 12:15 PM SEWAGE TREATMENT PLANT OPERATOR): Continue warfarin, but it can be interrupted [...] company given his low income (he receives [employer] this way). Alternatively, warfarin would be another option, albeit less convenient. Essential hypertension 02/04/2017 Assessment & Plan (09/09/2021 7:14 AM CDT): Blood pressure is controlled on current regimen which was not changed. Assessment & Plan (01/17/2021 1:29 PM CDT): Blood pressure is adequately controlled on current regimen. No change was made. Assessment & Plan (07/19/2020 12:05 PM SEWAGE TREATMENT PLANT OPERATOR): Blood pressure is adequately controlled on current regimen. Will change his prescription from 20 mg of lisinopril to 10 mg daily. Assessment & Plan (01/16/2020 11:32 AM CDT): Blood pressure is adequately controlled on current regimen. No change was made. Assessment & Plan (07/18/2019 12:16 PM SEWAGE TREATMENT PLANT OPERATOR): Blood pressure is adequately controlled on current [...] active. Assessment & Plan (07/22/2018 6:25 PM SEWAGE TREATMENT PLANT OPERATOR): Blood pressure is adequately controlled on current [...] sciatica 10/05/2015 Coronary artery disease invo lving [place] coronary artery of [place] heart without angina pectoris 06/03/2014 Overview (12/05/2017): Coronary arteriosclerosis in [place] artery Assessment & Plan (09/09/2021 7:14 AM CDT): Asymptomatic and with favorable Lexiscan. Assessment & Plan (01/17/2021 1:29 PM CDT): Asymptomatic. He is two years status post coronary artery bypass grafting. Assessment & Plan (07/19/2020 12:05 PM SEWAGE TREATMENT PLANT OPERATOR): No symptoms of myocardial ischemia. He does have some incisional discomfort and would like to see a surgeon when he is back in six months. He will schedule that appointment. Assessment & Plan (01/16/2020 11:31 AM CDT): Asymptomatic following bypass surgery. Continue aspirin and metoprolol. Assessment & Plan (07/18/2019 12:15 PM SEWAGE TREATMENT PLANT OPERATOR): No symptoms of myocardial ischemia. Continue aspirin. Assessment & Plan (12/09/2018 11:54 AM CDT): No symptoms of myocardial ischemia. Continue low-dose aspirin. Assessment & Plan (09/10/2018 6:42 PM CDT): Asymptomatic following recent surgery. Continue low-dose aspirin. Begin cardiac rehab. For convenience will switch to metoprolol succinate so he will not have to split pills. Assessment & Plan (07/22/2018 6:25 PM SEWAGE TREATMENT PLANT OPERATOR): Cardiac catheterization today reveals that his coronary [...] (09/23/2018): Added automatically from request for surgery [id number] Multi-vessel coronary artery stenosis 07/22/2018 01/25/2022 NSTEMI (non-ST elevated myoc ardial infarction) ([facility]) 07/22/2018 01/25/2022 Second degree AV block 11/01/201701/25 [...] made. Assessment & Plan (07/19/2020 12:06 PM SEWAGE TREATMENT PLANT OPERATOR): On chronic lipid lowering therapy with good control. No changes made. Assessment & Plan (01/16/2020 11:32 AM CDT): He is on high-intensity statin therapy. Assessment & Plan (07/18/2019 12:16 PM SEWAGE TREATMENT PLANT OPERATOR): On chronic lipid lowering therapy with good control. No changes made. Assessment & Plan (12/09/2018 11:55 AM CDT): On chronic lipid lowering therapy with good control. No changes made. Assessment & Plan (09/10/2018 6:41 PM CDT): On chronic lipid lowering therapy with good control. No changes made. Assessment & Plan (07/22/2018 7:06 PM SEWAGE TREATMENT PLANT OPERATOR): Lipid abnormalities are {improving/stable/worsenin}. {plan; hyperlipidemia for MU/POC:[id number]} Lipids will be reassessed {plan; follow-up 3 months/6 months/1 year:[id number]}. Assessment & Plan (03/12/2018 3:03 PM CDT): [...] 01/25/2022 Overview (12/05/2017): Overview: CXR 14 Old CA (myocardial infarction) 06/22/2014 01/25/2022 Overview (12/05/2017): Overview: [...] on file Legal Sex Male 9:21 PM SEWAGE TREATMENT PLANT OPERATOR Gender Identity Not on file Sexual Orientation Not on file Last Filed Vital Signs Vital Sign Reading Time Taken Comments Blood Pressure 142/62 08/21/2024 11:24 AM SEWAGE TREATMENT PLANT OPERATOR Pulse 78 08/21/2024 11:24 AM SEWAGE TREATMENT PLANT OPERATOR Temperature 37.5 C (99.5 F) 12/26/2021 12:00 PM CDT Respiratory Rate 16 12/26/2021 6:45 PM CDT Oxygen Saturation 96% 08/21/2024 11:24 AM SEWAGE TREATMENT PLANT OPERATOR Inhaled Oxygen Concentration - - Weight 101.2 kg (223 lb) 08/21/2024 11:24 AM SEWAGE TREATMENT PLANT OPERATOR Height 182.9 cm (6') 08/21/2024 11:24 AM SEWAGE TREATMENT PLANT OPERATOR Body Mass Index 30.24 08/21/2024 11:24 AM SEWAGE TREATMENT PLANT OPERATOR Plan of Treatment Not on file Medical Devices Implanted Type Area Edi Manager Device Identifier Shelf Expiration Date Model / Serial / Lot Medtronic Cardiac Rhythm Mgmt 5076-58 Capsurefix Novus 6.2fr 2mm 58cm Bipolar Screw In Implantable - [id number] - [id number] Implanted:Qty: 1 on 09/23/2018 by Feliberto Morales MD at [facility] Lead Left: Heart Medtronic Cardiac Rhythm Mgmt [id number] 02/07/2020 5076-58 / [id number] / Medtronic Cardiac Rhythm Mgmt 5076-52 Capsurefix Novus 6.2fr 2mm 52cm Bipolar Screw In Implantable Latex Free - [id number] - [id number] Implanted:Qty: 1 on 09/23/2018 by Feliberto Morales MD at [facility] Lead Left: Heart Medtronic Cardiac Rhythm Mgmt [id number] 06/01/2020 5076-52 / [id number] / Attain Stability Quad Mri Surescan Active Fixation Lv Lead 88cm [id number] - [id number] - [id number] Implanted:Qty: 1 on 12/26/2021 by Feliberto Morales MD at [facility] Lead Medtronic Inc [id number] 09/14/2023 [id number] / [id number] / Medtronic Inc Solara Mri Surescan Bluetooth 46.5x59mm Connector Hole Radiopaque [id number] - [id number] - [id number] Implanted:Qty: 1 on 12/26/2021 by Feliberto Morales MD at [facility] Pacemaker Medtronic Inc 02/12/2023 [id number] / [id number] 1S / Explanted Type Area Edi Manager Device Identifier Shelf Expiration Date Model / Serial / Lot Medtronic Cardiac Rhythm Mgmt [id number] Kami S Mri Surescan 50.8x46.6mm 2 Chamber 7.4mm Pacemaker 22.5gm - [id number] - [id number] Implanted:Qty : 1 on 09/23/2018 by Feliberto Morales MD at [facility] Explanted:Qty : 1 on 12/26/2021 at [facility] Pacemaker Left: Heart Medtronic Cardiac Rhythm Mgmt [id number] 02/13/2020 [id number] / [id number] / Procedures Procedure Name Priority Date/Time [...] CDT HEMOGLOBIN A1C Routine 07/22/2018 5:57 PM SEWAGE TREATMENT PLANT OPERATOR from Last 3 Months or Most Recently Relevant to Health Maintenance Results * (ABNORMAL) Protime-INR (12/30/2024 9:48 AM CDT) INR 2.7(H) [employer] Nuno Erickson Comment: Reference Range 0.9-1.1 Moderate-intensity Warfarin Therapy 2.0-3.0 Higher-intensity Warfarin Therapy 3.0-4.0 PT 26.8(H) 9.0 - 11.5 sec [employer] Nuno Erickson Comment: For additional information, please refer to http://Urbster.[employer]/faq/FEM419 (This link is being provided for informational/ educational purposes only.) Blood 12/30/2024 9:48 AM CDT 12/30/2024 9:49 AM CDT Narrative [facility] - 12/30/2024 5:33 PM CDT FASTING:NO FASTING: NO Luis Ochoa MD LAB BLOOD ORDERABLES Fin al Result Performing Organization Address [facility] Co de Phone Number [facility] [address] [place] [phone] * (ABNORMAL) Protime-INR (12/02/2024 9:34 AM CDT) INR 2.1(H) [facility] Comment: Reference Range 0.9-1.1 Moderate-intensity Warfarin Therapy 2.0-3.0 Higher-intensity Warfarin Therapy 3.0-4.0 PT 21.7(H) 9.0 - 11.5 sec [employer] [facility] Comment: For additional information, please refer to http://Urbster.[employer]/faq/TSC929 (This link is being provided for informational/ educational purposes only.) Blood 12/02/2024 9:34 AM CDT 12/02/2024 9:38 AM CDT Narrative [facility] - 12/02/2024 4:47 PM CDT FASTING:NO FASTING: NO Kirill Lopez MD LAB BLOOD ORDERABLES Fi nal Result Performing Organization Address [facility] Co de Phone Number [facility] [address] [place] [phone] * (ABNORMAL) Protime-INR (10/30/2024 9:35 AM CDT) INR 2.9(H) [facility] Comment: Reference Range 0.9-1.1 Moderate-intensity Warfarin Therapy 2.0-3.0 Higher-intensity Warfarin Therapy 3.0-4.0 PT 28.5(H) 9.0 - 11.5 sec [facility]is Erickson Comment: For additional information, please refer to http://education.[employer]/faq/FEW996 (This link is being provided for informational/ educational purposes only.) Blood 10/30/2024 9:35 AM CDT 10/30/2024 9:35 AM CDT Kirill Lopez MD LAB BLOOD ORDERABLES Fi nal Result [facility] [address] [place] [address] * DEVICE CHECK - REMOTE (10/22/2024 9:22 AM CDT) Anatomical Region Laterality Modality Other Narrative 01/01/2025 7:46 AM CDT Medtronic Solara Quad TRENCH DIGGER HELPER-P imp on 12/26/21 for [id number]. [facility]/[place] - [facility] Chronic RA/RV Leads from 09/23/18. New LV Lead 12/26/21. Routine DDDR Pacemaker Remote. Transmission attached. Battery status: 2.92 V, 2.2 years remaining battery life to [place]. Stable lead impedances, pacing and sensing thresholds. Presenting rhythm: AP/BV with PACs AP-74.8%, CERTIFIED GENETIC COUNSELOR-99.7% No AT/AF episodes noted. No Ventricular high [...] AM CDT) eGFR 101 mL/min/1.7 3 m2 [facility] Comment: Interpretive Data Reference Interval Normal >/= 90 mL/min/1.73m2 Mildly decreased* 60 - 89 mL/min/1.73m2 Mildly to moderately decreased 45 - 59 mL/min/1.73m2 Moderately to severely decreased 30 - 44 mL/min/1.73m2 Severely decreased 15 - 29 mL/min/1.73m2 Kidney Failure < 15 mL/min/1.73m2 *Relative to young adult level If -Lebanese multiply value by 1.16. Estimated glomerular filtration [...] AM CDT 09/24/2018 6:35 AM CDT Narrative [facility] - 09/24/2018 7:04 AM CDT us Feliberto Morales MD LAB BLOOD ORDERABLES Fi nal Result [facility] [address] [place] [address] * (ABNORMAL) Hemoglobin A1c (07/22/2018 5:57 PM SEWAGE TREATMENT PLANT OPERATOR) Hgb A1C 6.8(H) 4.0 - 5.6 % [facility] Estimated Average Glucose 148 mg/dL [facility] Comment: The ADA recommends reporting an estimated Average Glucose (eAG) with all Hemoglobin A1c results using the equation derived from a study of 507 normal and diabetic adults. Minority populations were underrepresented and children were not included. (Diabetes Care 31:2036-5176, 2008). The eAG is not equivalent to a fasting glucose. Blood specimen (specimen) 07/22/2018 5:57 PM SEWAGE TREATMENT PLANT OPERATOR 07/22/2018 6:02 PM SEWAGE TREATMENT PLANT OPERATOR Narrative [facility] - 07/22/2018 6:36 PM SEWAGE TREATMENT PLANT OPERATOR us Luis Sánchez MD LAB BLOOD ORDERABLES Final Result [facility] [address] [place] [address] from Last 3 Months or Most Recently Relevant to Health Maintenance Insurance [facility] MEDICARE [facility] ADVANT [facility] Advance Directives For more information, please contact: [phone] * Full Code (Latest Code Status on File) Date Activated Date Inactivated Comments 09/20/2018 7:34 PM 09/24/2018 2:37 PM * Full Code Date Activated Date Inactivated Comments 07/29/2018 6:37 PM 09/20/2018 2:29 PM * Full Code Date Activated Date Inactivated Comments 07/23/2018 12:51 PM 07/27/2018 5:02 PM * Full Code Date Activated Date Inactivated Comments 07/22/2018 5:10 PM 07/23/2018 12:51 PM Care Teams Relationship Banker Relationship Specialty Start Date End Date Fermin Marina MD [address] [place] [address] PCP - General Family Medicine 05/05/21 Elena Harvey MD [address] [place] [address] Consulting Physician Cardiology 04/04/21
--- OUTSIDE RECORDS SUMMARY | 2025-01-03 17:27 | XMS_ITS | Encounter Summary ---
Author Organization [facility] Healthcare Address [address] [place] [address] Care Team Providers Care Poultry Cleaner Name Role Phone Mac Lopez MD Primary Care Provider [phone] Jennifer Lopez MD Primary Care Provider + Marilee Rutledge MD Primary Care Provider [phone] Taylor Beltran MD Primary Care Provider [phone] Elena Harvey MD Unavailable [phone] Fermin Marina MD Primary Care Provider [phone] Encounter Details Date Type Department Care Team (Late st Contact Info) Description 10/26/2017 Orders Only [facility] [place] Information Management [address] [place] [address] Scanning, Provider Social History Tobacco Use Types Packs/Day Years Used Date Smoking Tobacco: Former Smokeless Tobacco: Former Alcohol Use Standard Drinks/Week Comments No 0 (1 standard drink = 0.6 oz pur e alcohol) Sex and Gender Information Value Date Recorded Sex Assigned at Not on file Legal Sex Male 9:21 PM PLUG STITCHER Gender Identity Not on file Sexual Orientation [...] on filedocumented in this encounter Care Teams Poultry Cleaner Relationship Specialty Start Date End Date Mac Lopez MD [address] [facility] [address] [place] [address] PCP - General 09/15/16 10/31/17 Jennifer Lopez MD [address] [place] [address] PCP - General Internal Medicine 11/01/17 07/17/19 Marilee Rutledge MD [address] [place] [address] PCP - General Family Medicine 07/18/19 01/15/20 Taylor Beltran MD [address] [place] [address] PCP - General Internal Medicine 01/16/20 05/04/21 Fermin Marina MD [address] [employer] [address] [place] [address] PCP - General Family Medicine 05/05/21 Elena Harvey MD [address] [employer] [address] [place] [address] Consulting Physician Cardiology 04/04/21 documented as of this encounter
--- OUTSIDE RECORDS SUMMARY | 2025-01-03 17:27 | XMS_ITS | Clinical Summary ---
Author Organization [facility] Address [address] [place] [address] Care Team Providers Care Securities Supervisor Name Role Phone Fermin Marina MD Primary Care Provider [phone] Allergies No known active allergies Social History [...] complete this topic Insurance [employer] Care Teams Securities Supervisor Relationship Specialty Start Date End Date Fermin Marina MD [address] [address] PCP - General FAMILY PRACTICE 12/17/21
--- OUTSIDE RECORDS SUMMARY | 2025-01-03 17:27 | XMS_ITS | Clinical Summary ---
Author Organization [facility] Address [address] [place] [address] Care Team Providers Care Senior Construction Estimator Name Role Phone Elena Harvey MD, Cami L MD Primary Care Provider [phone] Source Comments [facility],non-owned Affiliates and Associated Physician Practices is amultiple site organization consisting of ambulatory clinics and hospital sitesin [place], [place], [place] and [place]. This disclosure is being madepursuant to the Care Everywhere program and may not contain all information available regarding this patient. Last updated 18.[facility] Allergies Active Allergy Reactions Criticality Noted Date Comments Metformin Diarrhea Medium 04/16/2013 Hmg-Coa-R Inhibitors 10/03/2010 Medications * Be aware that medications may not be up to date on this document. Alwaysverify current medications with the patient. Bancroft-3 & Bancroft-6 Fish Oil CAPS Take by mouth. Active [...] 10/13/2018 Pacemaker 09/23/2018 Overview (01/28/2021): Medtronic DDD [place] MRI pacemaker implanted on 09/23/18 for Mobitz II. [place] [facility] [place] card Last Assessment & Plan: Normal pacemaker [...] (01/28/2021): CXR 6- Overview: CXR 6- Old [place] (myocardial infarction) 06/22/2014 Overview (01/28/2021): Dr Harvey [...] on 09/23/18 for Mobitz II. [place] [facility] card Last Assessment & Plan: Pacemaker was interrogated today and is functioning normally. No atrial fibrillation was seen. He remains on warfarin because of his history of splenic infarct and postoperative atrial fibrillation. NOACs were cost prohibitive for him. 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 REPORT COMMENT: FASTING:YES Test Performed at: [email or web address] [id number] [address] CHRISTINA PARRA DO,MPH Blood BLOOD SPECIMEN / Unknown 01/31/2021 9:05 AM CDT 01/31/2021 9:08 AM CDT us Taylor L Beltran MD LAB - CHEMISTRY ORDERABLES Fin al Result Performing Organization Address City/[facility]/ZIP Co nm Phone Number [facility] [address] [place] [address] * (ABNORMAL) COMPREHENSIVE METABOLIC PANEL (01/31/2021 9:05 [...] approximately 13% higher for people identified as -Romanian. eGFR by MDRD 86 > OR = [...] 46 U/L [facility] Comment: Test Performed at: [email or web address] [address] [address] [facility] [place] [place] [address] CHRISTINA PARRA DO,MPH Blood BLOOD SPECIMEN / Unknown 01/31/2021 9:05 AM CDT 01/31/2021 9:08 AM CDT Taylor Beltran MD LAB - CHEMISTRY ORDERABLES Fin al Result [facility] [address] [place] [address] * PROSTATE SPECIFIC ANTIGEN SCREEN (01/31/2021 9:05 AM CDT) PSA 0.7 < OR = 4.0 ng/mL [facility] Comment: The total PSA value from this assay system is standardized against the WHO standard. The test result will be approximately 20% lower when compared to the equimolar-standardized total PSA (Francisco Faulkner). Comparison of serial PSA results should be interpreted with this fact in mind. This test was performed using the Siemens chemiluminescent method. Values obtained from different assay methods cannot be used interchangeably. PSA levels, regardless of value, should not be interpreted as absolute evidence of the presence or absence of disease. Test Performed at: [email or web address] [address] [place] [address] CHRISTINA PARRA DO,MPH Blood BLOOD SPECIMEN / Unknown 01/31/2021 9:05 AM CDT 01/31/2021 9:08 AM CDT us Taylor Beltran MD LAB - CHEMISTRY ORDERABLES Fin al Result Performing Organization Address [facility] de Phone Number [facility] [address] [place] [address] * DIABETES EYE EXAM (11/11/2020) us Scanned [...] 12:59 PM CDT Narrative Resulting Agency Comment [facility] [address] [place] [id number] us Mac Lopez MD LAB - URINE CHEMISTRY ORDERABLES Final Result [facility] INSURANCE BILL [address] [place] [address] from Last 3 Months or Most Recently Relevant to Health Maintenance Insurance MEDICARE [facility] AETNA MEDICARE ADV AETNA MEDICARE ADV SELF PAY NO INSURANCE Member Subscriber Plan / Payer (Ef fective for All Dates) Name:eVlma Fuentes Member ID:Not on file Relation to Subscriber:Not on file Name:MACKVELMA Subscriber ID:Not on file Address: [address] [place] [address] Payer ID:Not on file Group ID:Not on file Type:Self Pay Address: [place], [place] AETNA MEDICARE ADV SELF PAY NO INSURANCE Member Subscriber Plan / Payer (Ef fective for All Dates) Name:MichaelscottVelma hare Member ID:Not on file Relation to Subscriber:Not on file Name:VELMA FUENTES Subscriber ID:Not on file Address: [address] [place] [address] Payer ID:Not on file Group ID:Not on file Type:Self Pay Address: [place], [place] * Guarantor: VELMA FUENTES Account Type Relation to Patient Date of Phone Billing Address Personal/Family [address] [address] AETNA MEDICARE ADV SELF PAY NO INSURANCE Member Subscriber Plan / Payer (Ef fective for All Dates) Name:Velma Fuentes Member ID:Not on file Relation to Subscriber:Not on file Name:VELMA FUENTES Subscriber ID:Not on file Address: [address] [place] [address] [place] [address] Payer ID:Not on file Group ID:Not on file Type:Self Pay Address: [place], [place] Care Teams Senior Construction Estimator Relationship Specialty [place] [id number] [address] PCP - General Internal Medicine 02/02/20 Elena Harvey MD Frame Operator Cardiology 10/03/17
[2025-01-03 17:34] LABS: Hematocrit 47.9 % (42.0-52.0); Hemoglobin 15.6 g/dL (14.0-18.0); Immature Granulocyte Percent A 0.3 % (0-0.5); Lymphocytes Absolute Auto 1.38 K/mm3 (0.9-3.2); Mean Corpuscular HGB Conc 32.6 g/dl (32-36); Mean Corpuscular Hemoglobin 30.8 pg (26-34); Mean Corpuscular Volume 94.7 fl (80-100); Nucleated Red Blood Cells Absolute Auto 0.000 K/mm3 (0.0-0.012); Nucleated Red Blood Cells Perc 0.0 % (0.0-0.2); Platelet Count Result 260 k/mm3 (150-375); Red Blood Count 5.06 M/mm3 (4.6-6.20); White Blood Count 10.0 K/mm3 (4.5-10.0)
[2025-01-03 17:44] LABS: Alanine Aminotransferase 29 U/L (6-50); Albumin Level 4.1 g/dL (3.5-5.1); Alkaline Phosphatase 111 U/L (38-126); Anion Gap 6 mmol/L (4-12); Aspartate Amino Transferase 31 U/L (17-59); Bilirubin,Total 0.7 mg/dL (0.2-1.3); Blood Urea Nitrogen 16 mg/dL (9-20); Calcium 9.0 mg/dL (8.4-10.2); Carbon Dioxide 29 mmol/L (22-30); Chloride 100 mmol/L (98-107); Estimated CRCL calculation 85 ml/min; Estimated Glomerular Filt Rate > 60; Glucose 128 mg/dL (65-110); Potassium 4.0 mmol/L (3.4-5.0); Sodium 135 mmol/L (137-145); Total Protein 7.1 g/dL (6.3-8.2)
--- NOTE | 2025-01-03 18:26 | ED_ITS ---
HPI - General Adult General Chief complaint: Headache Stated complaint: Paresthesias of the head Time Seen by Provider: 01/03/25 17:17 History of Present Illness HPI narrative: This is an 79-year-old male presenting with 1 week of head paresthesias. Patient says has a pains and needle sensation over the feeling of bugs crawling on the inside of his head over the right side of his scalp down below his right ear. This is been ongoing for 1 week. He has seen his primary care physician and is being worked up for atypical occipital neuralgia. There are plans for a possible MRI and EEG his symptoms do not resolve. Patient does not have any other symptoms such as slurred speech facial droop double vision loss of coordination difficulty swallowing or extremity weakness. Patient denies chest pain difficulty breathing productive cough abdominal pain or lower extremity edema. Patient's is suffering from a stroke and dementia. 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 Related Data Home Medications ?Medication ?Instructions ?Recorded ?Confirmed ?Last Taken ?Type aspirin 81 mg tablet,delayed 81 mg PO DAILY 04/25/21 12/30/24 Unknown History release (Adult Aspirin Regimen) warfarin 2 mg tablet 2 mg PO DAILY 10/03/23 12/30/24 Unknown History warfarin 6 mg tablet 6 mg PO DIRECTED 10/03/23 12/30/24 10/05/23 09:00 History Allergies Allergy/AdvReac Type Severity Reaction Status Date / Time fluticasone furoate (From AdvReac Severe tachycardia Verified 01/03/25 14:31 Trelegy Ellipta) umeclidinium (From Trelegy AdvReac Severe tachycardia Verified 01/03/25 14:31 Ellipta) vilanterol (From Trelegy AdvReac Severe tachycardia Verified 01/03/25 14:31 Ellipta) [facility] Past Medical History Medical History Left arm pain H/O cardiac pacemaker Benign prostatic hyperplasia Diarrhea Mixed hyperlipidemia Macular degeneration Coronary artery disease Essential hypertension BMI 31.0-31.9,adult Type 2 diabetes mellitus without complications History of gastroesophageal reflux (GERD) History of hyperlipidemia History of hypertension History of coronary artery disease Surgical History Surgical History History of coronary artery bypass graft Family History Family History Father Alzheimers disease Mother Heart disease Hypertension Sibling Breast cancer Other Diabetes mellitus Social History Social History Social History: Resides in [place] with his . 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 Former smoker. Consumes alcohol socially and in moderation. No illicit substance use. Code status: Full code. Smoking packs per day: 3 Smoking cigarettes per day: 60.0 Years smoked: 37 Smoking pack-years: 111.00 Smoking status: Former smoker Tobacco type: cigarettes Second hand tobacco smoke exposure: No Smoking end date: 12/16/88 Alcohol intake: former Substance use: never Substance use type: does not use Lack of Transportation: No Lack of Food: Never True Current Housing: I Have Housing Concerned About Future Housing: No Difficulty Paying Gas/Electric Bills: No Difficulty Paying for Meds: No Currently Unemployed: No Education: High School Diploma/GED Difficulty w/ Childcare or Family Care: No Living arrangements: with family Occupation/Education: retired 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 Well-appearing Head: atraumatic. EYES: EOMI, NOSE: Atraumatic NECK: Trachea midline RESPIRATORY: No increased rate of breathing clear to auscultation CARDIOVASCULAR: RRR, ABDOMINAL: Non-distended MUSCULOSKELETAl: No obvious deformities NEURO: Alert. Cranial nerves 2-12 grossly intact. Sensation light touch, motor function cerebellar function intact for 4 extremities. Gait exam was normal. NIH is 0 SKIN:: Warm, dry. Normal color PSYCHIATRIC: Anxious. Course Vital Signs Vital signs: Vital Signs Temperature 97.3 F L 01/03/25 14:25 Pulse Rate 85 01/03/25 14:25 Respiratory Rate 22 H 01/03/25 14:25 Blood Pressure 180/77 H 01/03/25 14:25 Pulse Oximetry 97 01/03/25 14:25 Temperature 97.3 F L 01/03/25 14:25 Pulse Rate 79 01/03/25 17:16 Respiratory Rate 17 01/03/25 17:16 Blood Pressure 157/81 H 01/03/25 17:16 Pulse Oximetry 98 01/03/25 17:16 Oxygen Delivery Room Air 01/03/25 17:[address] [facility] Narrative Medical decision making narrative: -Course: 79-year-old male presenting with paresthesias over the right side of his head and behind his right ear. This corresponds roughly to a C2 distribution. CT brain was obtained as he was concerned for stroke and was unremarkable. His neurologic exam is normal. Patient is on low-dose gabapentin for his primary care physician this continue to be titrated up for affect by the PCP. Patient was reassured and discharged follow-up primary care physician. Given return precautions. -DDX includes but is not limited to: Peripheral neuropathy, trigeminal neuralgia, CVA or hemorrhage Vital Signs Vital Signs: Vital Signs Temperature 97.3 F L 01/03/25 14:25 Pulse Rate 85 01/03/25 14:25 Respiratory Rate 22 H 01/03/25 14:25 Blood Pressure 180/77 H 01/03/25 14:25 Pulse Oximetry 97 01/03/25 14:25 Temperature 97.3 F L 01/03/25 14:25 Pulse Rate 79 01/03/25 17:16 Respiratory Rate 17 01/03/25 17:16 Blood Pressure 157/81 H 01/03/25 17:16 Pulse Oximetry 98 01/03/25 17:16 Oxygen Delivery Room Air 01/03/25 17:13 Lab Data 01/03/25 17:26 01/03/25 17:26 Labs: Lab Results 01/03/25 Range/Units 17:26 WBC 10.0 (4.5-10.0) K/mm3 RBC 5.06 (4.6-6.20) M/mm3 Hgb 15.6 (14.0-18.0) g/dL Hct 47.9 (42.0-52.0) % MCV 94.7 (80-100) fl MCH 30.8 (26-34) pg MCHC 32.6 (32-36) g/dl RDW 13.3 (11.5-14.5) % Plt Count 260 (150-375) k/mm3 MPV 10.7 H (7.4-10.4) fl Immature Gran % (Auto) 0.3 (0-0.5) % Neut % (Auto) 70.3 (45.5-73.1) % Lymph % (Auto) 13.9 L (18.3-44.2) % [place] % (Auto) 12.2 H (2.6-8.5) % Eos % (Auto) 3.1 (0-4.4) % Baso % (Auto) 0.2 (0.2-1.2) % Lymph # (Auto) 1.38 (0.9-3.2) K/mm3 [place] # (Auto) 1.2 H (0.1-0.6) K/mm3 Eos # (Auto) 0.3 (0-0.3) K/mm3 Baso # (Auto) 0.0 (0.0-0.1) K/mm3 Abs Immat Gran (auto) 0.03 (0.00-0.031) K/mm3 Absolute Neuts (auto) 7.0 H (1.3-6.7) K/mm3 Absolute Nucleated RBC 0.000 (0.0-0.012) K/mm3 Nucleated RBC % 0.0 (0.0-0.2) % Sodium 135 L (137-145) mmol/L Potassium 4.0 (3.4-5.0) mmol/L Chloride 100 (98-107) mmol/L Carbon Dioxide 29 (22-30) mmol/L Anion Gap 6 (4-12) mmol/L BUN 16 (9-20) mg/dL Creatinine 0.65 L (0.7-1.3) mg/dL Estim Creat Clear Calc 85 ml/min Estimated GFR > 60 (59 - ) Glucose 128 H (65-110) mg/dL Calcium 9.0 (8.4-10.2) mg/dL Total Bilirubin 0.7 (0.2-1.3) mg/dL AST 31 (17-59) U/L ALT 29 (6-50) U/L Alkaline Phosphatase 111 (38-126) U/L Total Protein 7.1 (6.3-8.2) g/dL Albumin 4.1 (3.5-5.1) g/dL Discharge Plan Discharge Clinical Impression: Paresthesia Patient Disposition: Home Condition: Stable Instructions: Antibiotic Form, Paresthesia (ED) Additional Instructions: You were seen emergency department for pins and needles on the right side of her head. This is likely a peripheral neuropathy. Please follow-up with your primary care physician for further management. If you develop any new symptoms such as slurred speech weakness to extremity return to ED immediately. Patient Language: Slovenian Prescriptions: No Action budesonide-formoterol 160-4.5 mcg/actuation HFA aerosol inhaler 2 puff inhalation Q12H Qty: 10.2 0RF prednisone 20 mg tablet See Rx Instructions .ROUTE .COMPLEX Qty: 9 0RF Rx Instructions: 40 mg daily x3 days, 20 mg daily x3 days doxycycline monohydrate 100 mg tablet 100 mg PO BID 7 Days Qty: 14 0RF promethazine-DM 6.25-15 mg/5 mL syrup 5 ml PO Q4-6H PRN (Reason: cough) Qty: 118 0RF montelukast 10 mg tablet 10 mg PO QHS Qty: 90 1RF gabapentin 100 mg capsule 100 mg PO QHS Qty: 30 0RF aspirin [Adult Aspirin Regimen] 81 mg tablet,delayed release (DR/EC) 81 mg PO DAILY meclizine 25 mg tablet 50 mg PO BID PRN (Reason: dizziness) Qty: 60 0RF atorvastatin 40 mg tablet See Rx Instructions .ROUTE .COMPLEX Qty: 90 1RF Dose Instruction: Take 1 tablet by mouth once daily Rx Instructions: Take 1 tablet by mouth once daily metoprolol tartrate 25 mg tablet See Rx Instructions .ROUTE .COMPLEX Qty: 180 1RF Dose Instruction: Take 1 tablet by mouth twice daily Rx Instructions: Take 1 tablet by mouth twice daily omeprazole 20 mg capsule,delayed release(DR/EC) 20 mg PO DAILY Qty: 90 1RF nitroglycerin 0.4 mg tablet, sublingual 0.4 mg sublingual DIRECTED Qty: 30 0RF tamsulosin [Flomax] 0.4 mg capsule 0.4 mg PO DAILY Qty: 90 1RF tramadol 50 mg tablet 50 mg PO Q6H PRN (Reason: pain) Qty: 20 0RF warfarin 6 mg tablet 6 mg PO DIRECTED Rx Instructions: SAT, SUN, MON, TU,SUN, SUNDAY warfarin 2 mg tablet 2 mg PO DAILY Rx Instructions: thur-- 2MG + 6MG = 8MG (DME) OneTouch Ultra Test Strip See Rx Instructions .Route Qty: 100 1RF Rx Instructions: check once daily metformin 500 mg tablet extended release 24 hr 500 mg PO DAILY Qty: 90 1RF ropinirole 0.25 mg tablet 0.25 mg PO QHS Qty: 30 3RF amlodipine-benazepril 5-20 mg capsule 1 cap PO DAILY Qty: 90 3RF Follow-up/Referrals: Alan Chang DO [Primary Care Provider] -
[2025-01-03 19:05] VITALS: BP 160/70; PULSE 70; RESP 16; O2SAT 95
== END 2025-01-03 19:10 | disposition home or self-care (01) ==
PROVIDERS: Emergency Provider Emergency Medicine; PCP Family Medicine
DX: R20.2 Paresthesia of skin (principal); I25.10 Atherosclerotic heart disease of native coronary artery without angina pectoris; I10 Essential (primary) hypertension; E78.2 Mixed hyperlipidemia; E11.9 Type 2 diabetes mellitus without complications; H35.30 Unspecified macular degeneration; N40.0 Benign prostatic hyperplasia without lower urinary tract symptoms; K21.9 Gastro-esophageal reflux disease without esophagitis; Z95.1 Presence of aortocoronary bypass graft; Z79.82 Long term (current) use of aspirin; Z79.899 Other long term (current) drug therapy; Z79.01 Long term (current) use of anticoagulants; Z79.84 Long term (current) use of oral hypoglycemic drugs
CPT/HCPCS: 36415; 70450; 80053; 85025; 93005; 99284

== ENCOUNTER 2025-02-11 15:11 | Outpatient (CLI) | payer MEDICARE, SELFPAY ==
--- NOTE | ~2025-02-11 | US_ITS ---
EXAMINATION: US carotid duplex BI DATE: 02/11/2025 16:16 INDICATION: Facial weakness TECHNIQUE: Grayscale, color Doppler, and pulsed Doppler images of the cervical carotid arteries were obtained. The degree of vessel stenosis is placed in one of the following categories: normal, <50%, 50-69%, >=70% but less than near- occlusion, near-occlusion, or total occlusion. Note that percent stenosis relative to normal distal artery lumen diameter is indirectly measured from velocity measurements as described by Holger, et al. Radiology 2003; 229:340-346. Notes: Normal: Peak systolic velocity <125 centimeters/sec and no plaque <50%. Peak systolic velocity <125 (EDV <40; ICA/CCA PSV ratio <2.0; used these factors only a tandem lesions or low cardiac output or contralateral disease) 50-69 %: PSV 125-230 (EDV 40-100; ratio 2-4) >= 70% but less than near occlusion: PSV greater than 230 (EDV > 100; ratio> 4.0) Near Occlusion: PSV that is variable; markedly narrowed lumen Occlusion: Absent flow on color/spectral Doppler and no lumen on pitts scale. COMPARISON: None. FINDINGS: RIGHT: The right common carotid artery (CCA) peak systolic velocity (PSV) is 70 cm/s. The right internal carotid artery (ICA) PSV is 67 cm/s. The right ICA end- diastolic velocity (EDV) is 15 cm/s. The right ICA/CCA PSV ratio is 1.0. The external carotid artery (ECA) PSV is 128 cm/s. There is antegrade flow in the right vertebral artery. LEFT: The left CCA PSV is 87 cm/s. The left ICA PSV is 85 cm/s. The left ICA EDV is 18 cm/s. The left ICA/CCA PSV ratio is 1.0. The ECA PSV is 251 cm/s. There is antegrade flow in the left vertebral artery. IMPRESSION: 1. Less than 50% stenosis in the right internal carotid artery by sonographic criteria. 2. Less than 50% stenosis in the left internal carotid artery by sonographic criteria. Reviewed, dictated and finalized at location O. IMPRESSION: 1. Less than 50% stenosis in the right internal carotid artery by sonographic fermín harmon. 2. Less than 50% stenosis in the left internal carotid artery by sonographic rochelle randolph.
--- OUTSIDE RECORDS SUMMARY | 2025-02-11 15:17 | XMS_ITS | Clinical Summary ---
Author Organization [facility] Address [address] [place] [address] Care Team Providers Care Delicatessen Department Manager Name Role Phone Elena Harvey MD Unavailable [phone] Alan Chang DO Primary Care Provider [phone] Allergies Active Allergy Reactions Criticality Noted Date Comments Adhesive Itching Low 09/20/2018 Medications omeprazole (PriLOSEC) 20 mg capsule Take 1 capsule (20 mg total) by mouth daily Active aspirin 81 mg chewable tabletIndications: prevention of thrombosis Take 1 tablet (81 mg total) by mouth daily Active fluticasone propionate (FLONASE) 50 mcg/actuation nasal spray Administer 2 sprays into affected nostril(s) as needed PRN 020 Active Symbicort 160-4.5 mcg/actuation inhaler Inhale 1 puff 2 (two) times a day as needed 022 Active vit C/E/Zn/coppr/lutei n/zeaxan (PRESERVISION AREDS-2 ORAL) Take 2 capsules by mouth daily Active metoprolol tartrate (LOPRESSOR) 25 mg immediate release tablet Take 1 tablet (25 mg total) by mouth daily 90 tablet 3 022 Active atorvastatin (LIPITOR) 40 mg tablet Take 1 tablet by mouth once daily 90 tablet 023 Active metFORMIN (GLUCOPHAGE) 500 mg tablet Take 1 tablet (500 mg total) by mouth daily 023 Active nitroglycerin (NITROSTAT) 0.4 mg SL tabletIndications: 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 Place 1 tablet (0.4 mg total) under the tongue every 5 (five) minutes as needed for chest pain Up to 3 doses 25 tablet 1 023 Active warfarin (COUMADIN) 2 mg tabletIndications: Paroxysmal atrial fibrillation (HCC),Chronic anticoagulation TAKE 1 TABLET BY MOUTH ONCE DAILY SUNDAY THROUGH SUNDAY (TAKE WITH 6 MG TABLET TO EQUAL 8 MG TOTAL) 76 tablet 024 Active amLODIPine-benazep riL (LOTREL) 10-20 mg per capsuleIndications :Essential hypertension Take 1 capsule by mouth once daily 90 capsule 2 024 Active albuterol HFA (PROVENTIL HFA,VENTOLIN HFA,PROAIR HFA) 90 mcg/actuation inhaler 025 Active warfarin (COUMADIN) 6 mg tablet Take 1 tablet by mouth once daily 30 tablet 025 Active warfarin (COUMADIN) 6 mg tablet Take 1 tablet by mouth once daily 30 tablet 3 025 2024 Discontinued Active Problems Problem Noted Date Diagnosed Date Anxiety 05/14/2023 Paresthesias 11/06/2022 Dry eye syndrome of both eyes 08/03/2022 Assessment & Plan (08/03/2022 4:33 PM [employer]): Recommend preservative-free artificial tear drops 3 to 4 times a day Chest discomfort 05/02/2022 Cerebral atherosclerosis 05/02/2022 Irregular astigmatism of both eyes 01/27/2022 Assessment & Plan (08/03/2022 4:32 PM [employer]): No significant improvement in VA with over [...] like to follow-up for general cardiology in [place], and I recommended that he see Dr. Anaya Conrad as he prefers a female senior cost analyst. For EP, he will continue to come here and see Dr. Morales. Pseudophakia of both eyes 04/05/2020 Assessment & Plan (08/03/2022 4:31 PM [employer]): Patient was educated on the intraocular lens (IOL) status. Follow. Assessment & Plan (04/05/2020 3:46 PM CDT): Patient was educated on the intraocular lens (IOL) status. Follow. Diabetes mellitus type 2 without retinopathy Assessment & Plan (08/03/2022 4:31 PM [employer]): Pt ed. Stressed BG control (HbA1C<7) to [...] 04/05/2020 Assessment & Plan (08/03/2022 4:34 PM [employer]): Stable on OCT, monitor, cont areds, rtc [...] pacemaker 09/23/2018 Overview (05/03/2022): Medtronic Solara Quad MIXING MACHINE FEEDER-P imp on 12/26/21 for [id number]. Andrew-EP/[facility]-Card - [facility] Chronic RA/RV Leads from 09/23/18. [...] Yo C, Yaron R, Evans JR, Ca LOMELI, Jaspreet LOYOLA, Tami YAN, Zeferino MR, Zev KR, Kameron NF, Pietro [...] physiologic ventricular activation (e.g., cardiac resynchronization therapy [MIXING MACHINE FEEDER] or His bundle pacing) over right ventricular pacing Assessment & Plan (01/17/2021 1:30 PM CDT): Normal pacemaker function. Assessment & Plan (07/19/2020 12:07 PM [employer]): Followed through the arrhythmia Center. Assessment & Plan (07/18/2019 12:18 PM [employer]): Normal function. Assessment & Plan (12/09/2018 11:56 [...] him. Assessment & Plan (07/19/2020 12:06 PM [employer]): Very low burden seen on pacemaker interrogation. He is on warfarin. Assessment & Plan (01/16/2020 11:33 AM CDT): Chronically anticoagulated. He is on warfarin as NOACs were not affordable. Offered that we could check into home testing, but he is happy going to the lab. Assessment & Plan (07/18/2019 12:15 PM [employer]): Continue warfarin, but it can be interrupted [...] made. Assessment & Plan (07/19/2020 12:05 PM [employer]): Blood pressure is adequately controlled on current regimen. Will change his prescription from 20 mg of lisinopril to 10 mg daily. Assessment & Plan (01/16/2020 11:32 AM CDT): Blood pressure is adequately controlled on current regimen. No change was made. Assessment & Plan (07/18/2019 12:16 PM [employer]): Blood pressure is adequately controlled on current [...] active. Assessment & Plan (07/22/2018 6:25 PM [employer]): Blood pressure is adequately controlled on current [...] sciatica 10/05/2015 Coronary artery disease invo lving algaaciq coronary artery of algaaciq heart without angina pectoris 06/03/2014 Overview (12/05/2017): Coronary arteriosclerosis in algaaciq artery Assessment & Plan (09/09/2021 7:14 AM CDT): Asymptomatic and with favorable Lexiscan. Assessment & Plan (01/17/2021 1:29 PM CDT): Asymptomatic. He is two years status post coronary artery bypass grafting. Assessment & Plan (07/19/2020 12:05 PM [employer]): No symptoms of myocardial ischemia. He does have some incisional discomfort and would like to see a surgeon when he is back in six months. He will schedule that appointment. Assessment & Plan (01/16/2020 11:31 AM CDT): Asymptomatic following bypass surgery. Continue aspirin and metoprolol. Assessment & Plan (07/18/2019 12:15 PM [employer]): No symptoms of myocardial ischemia. Continue aspirin. Assessment & Plan (12/09/2018 11:54 AM CDT): No symptoms of myocardial ischemia. Continue low-dose aspirin. Assessment & Plan (09/10/2018 6:42 PM CDT): Asymptomatic following recent surgery. Continue low-dose aspirin. Begin cardiac rehab. For convenience will switch to metoprolol succinate so he will not have to split pills. Assessment & Plan (07/22/2018 6:25 PM [employer]): Cardiac catheterization today reveals that his coronary [...] (09/23/2018): Added automatically from request for surgery [id number] Multi-vessel coronary artery stenosis 07/22/2018 01/25/2022 NSTEMI (non-ST elevated myoc ardial infarction) ([facility]) 07/22/2018 01/25/2022 Second degree AV block 11/01/201701/25 [...] made. Assessment & Plan (07/19/2020 12:06 PM [employer]): On chronic lipid lowering therapy with good control. No changes made. Assessment & Plan (01/16/2020 11:32 AM CDT): He is on high-intensity statin therapy. Assessment & Plan (07/18/2019 12:16 PM [employer]): On chronic lipid lowering therapy with good control. No changes made. Assessment & Plan (12/09/2018 11:55 AM CDT): On chronic lipid lowering therapy with good control. No changes made. Assessment & Plan (09/10/2018 6:41 PM CDT): On chronic lipid lowering therapy with good control. No changes made. Assessment & Plan (07/22/2018 7:06 PM [employer]): Lipid abnormalities are {improving/stable/worsenin}. {plan; hyperlipidemia for MU/POC:[id number]} Lipids will be reassessed {plan; follow-up 3 months/6 months/1 year:[id number]}. Assessment & Plan (03/12/2018 3:03 PM CDT): [...] (CMS/HCC) 06/22/2014 01/25/2022 Overview (12/05/2017): Overview: CXR 6-14 Old SD (myocardial infarction) 06/22/2014 01/25/2022 Overview (12/05/2017): Overview: Dr Harvey 08-13-12 Encounters Date Type Department Care Team Description 01/30/2025 2:00 PM CDT Office Visit [facility] Cardiology [address] [place] [address] [place] [phone] Colette Millan NP Facial weakness following other cerebrovascular disease (Primary Dx); Facial weakness; Coronary artery disease involving algaaciq coronary artery of algaaciq heart without angina pectoris 01/29/2025 Anticoagulation Visit [facility] Cardiology at [address] [place] [address] Meme Latif RN Paroxysmal atrial fibrillation (CMS/HCC) (HCC) (Primary Dx); Chronic anticoagulation 01/28/2025 8:45 AM CDT Ancillary Procedure [facility] Cardiology [address] [place] [address] [place] [phone] Status post biventricular pacemaker; NICM (nonischemic cardiomyopathy) (HCC); Congestive heart failure, unspecified HF chronicity, unspecified heart failure type (HCC); CHB (complete heart block); Paroxysmal atrial fibrillation (HCC) 01/21/2025 11:30 AM CDT Ancillary Procedure [facility] Cardiology [address] [place] [address] [place] [phone] Status post biventricular pacemaker; NICM (nonischemic cardiomyopathy) (HCC); Congestive heart failure, unspecified HF chronicity, unspecified heart failure type (HCC); CHB (complete heart block); Paroxysmal atrial fibrillation (HCC) 01/21/2025 Telephone [facility] Cardiology [address] [place] [address] [place] [phone] Luis Ochoa MD 12/31/2024 Anticoagulation Visit [facility] Cardiology [address] [place] [address] [place] [phone] Jeanna Salomon RN Paroxysmal atrial fibrillation (CMS/HCC) (HCC) (Primary Dx); Chronic anticoagulation 12/30/2024 Telephone [facility] Cardiology [address] [place] [address] [place] [phone] Luis Ochoa MD INR order 12/03/2024 Anticoagulation Visit [facility] Cardiology at [address] [place] [address] Meme Latif RN Paroxysmal atrial fibrillation (CMS/HCC) (HCC) (Primary Dx); Chronic anticoagulation from Last 3 Months Surgical History Surgery [...] on file Legal Sex Male 9:21 PM [employer] Gender Identity Not on file Sexual Orientation Not on file Obstetrics History Last Filed Vital Signs Vital Sign Reading Time Taken Comments Blood Pressure 148/70 01/30/2025 1:51 PM CDT Pulse 86 01/30/2025 1:51 PM CDT Temperature 37.5 C (99.5 F) 12/26/2021 12:00 PM CDT Respiratory Rate 16 12/26/2021 6:45 PM CDT Oxygen Saturation 95% 01/30/2025 1:51 PM CDT Inhaled Oxygen Concentration - - Weight 99.3 kg (219 lb) 01/30/2025 1:51 PM CDT Height 182.9 cm (6') 01/30/2025 1:51 PM CDT Body Mass Index 29.7 01/30/2025 1:51 PM CDT Plan of Treatment Health Maintenance Due Date Last Done Comments Albumin Creatinine Ratio, Urine 1944 Depression Screening 1945 Foot Exam 1944 DTaP/Tdap/Td Vaccine (1 - Tdap) 10/16/1955 Hepatitis B Screening 1962 Zoster Vaccine (1 of 2) 1994 Abdominal Aortic Aneurysm (A AA) Screen 2009 Well Visit 65+ 2009 eGFR 09/25/2019 09/24/2018, 04/0 02/2019, 09/23/2018, Additional history exists Hemoglobin A1C 08/03/2021 01/31/2021, 02/16, 07/22/2018, Additional history exists Fall Risk Assessment 12/26/2022 12/26/2021 Dilated Eye Exam 08/03/2023 08/03/2022 Lipid Panel 11/07/2023 11/06/2022, 2 02/2022, 01/31/2021, Additional history exists Covid-19 Vaccine (2023-2 5 season) 2024 08/25/2020, 08/06/2020 Influenza Vaccine (#1) 2025 , 06/23/2014, 06/23/2014, Additional history exists Pneumococcal vaccine 65+ Completed 02/21/2019, 04/18 Medical Devices Implanted Type Area Diet Therapist Device Identifier Shelf Expiration Date Model / Serial / Lot Medtronic Cardiac Rhythm Mgmt 5076-58 Capsurefix Novus 6.2fr 2mm 58cm Bipolar Screw In Implantable - [id number] - [id number] Implanted:Qty: 1 on 09/23/2018 by Feliberto Morales MD at [facility] Lead Left: Heart Medtronic Cardiac Rhythm Mgmt [id number] 02/07/2020 5076-58 / [id number] / Medtronic Cardiac Rhythm Mgmt 5076-52 Capsurefix Novus 6.2fr 2mm 52cm Bipolar Screw In Implantable Latex Free - [id number] - [id number] Implanted:Qty: 1 on 09/23/2018 by Feliberto Morales MD at [facility] Lead Left: Heart Medtronic Cardiac Rhythm Mgmt [id number] 06/01/2020 5076-52 / [id number] / Attain Stability Quad Mri Surescan Active Fixation Lv Lead 88cm [id number] - [id number] - [id number] Implanted:Qty: 1 on 12/26/2021 by Feliberto Morales MD at [facility] Lead Medtronic Inc [id number] 09/14/2023 [id number] 888 / [id number] / Medtronic Inc Solara Mri Surescan Bluetooth 46.5x59mm Connector Hole Radiopaque [id number] - [id number] - [id number] Implanted:Qty: 1 on 12/26/2021 by Feliberto Morales MD at [facility] Pacemaker Medtronic Inc 02/12/2023 [id number] / [id number] / Explanted Type Area Diet Therapist Device Identifier Shelf Expiration Date Model / Serial / Lot Medtronic Cardiac Rhythm Mgmt [id number] [place] S Mri Surescan 50.8x46.6mm 2 Chamber 7.4mm Pacemaker 22.5gm - [id number] - [id number] Implanted:Qty : 1 on 09/23/2018 by Feliberto Morales MD at [facility] Explanted:Qty : 1 on 12/26/2021 at [facility] Pacemaker Left: Heart Medtronic Cardiac Rhythm Mgmt [id number] 02/13/2020 [id number] / [id number] / Procedures Procedure Name Priority Date/Time Associated Diagnosis Comments PROTIME-INR Routine 01/29/2025 9:44 AM CDT Paroxysmal atrial fibrillation (CMS/HCC) (HCC) Chronic anticoagulation DEVICE CHECK - REMOTE Routine 01/21/2025 10:57 AM CDT Status post biventricular pacemaker NICM (nonischemic cardiomyopathy) (HCC) Congestive heart failure, unspecified HF chronicity, unspecified heart failure type (HCC) CHB (complete heart block) Paroxysmal atrial fibrillation (HCC) PROTIME-INR Routine 12/30/2024 9:48 AM CDT Paroxysmal atrial fibrillation (CMS/HCC) (HCC) Chronic anticoagulation PROTIME-INR Routine 12/02/2024 9:34 AM CDT Paroxysmal atrial fibrillation (HCC) Chronic anticoagulation POCT LIPID PANEL Routine 11/06/2022 3:10 PM CDT Lipid screening EGFR Routine 09/24/2018 5:41 AM CDT HEMOGLOBIN A1C Routine 07/22/2018 5:57 PM [employer] from Last 3 Months or Most Recently Relevant to Health Maintenance Results * (ABNORMAL) Protime-INR (01/29/2025 9:44 AM CDT) INR 2.9(H) CADFORCEKiki Erickson Comment: Reference Range 0.9-1.1 Moderate-intensity Warfarin Therapy 2.0-3.0 Higher-intensity Warfarin Therapy 3.0-4.0 PT 28.8(H) 9.0 - 11.5 sec CADFORCEKiki Erickson Comment: For additional information, please refer to http://education.Econotherm/faq/QAP284 (This link is being provided for informational/ educational purposes only.) Blood 01/29/2025 9:44 AM CDT 01/29/2025 9:44 AM CDT us Luis Ochoa MD LAB BLOOD ORDERABLES Fin al Result Performing Organization Address City/State/[facility] Co de Phone Number [facility] [address] [place] [address] * DEVICE CHECK - REMOTE (01/21/2025 10:57 AM CDT) Anatomical Region Laterality Modality Other Narrative 01/26/2025 7:37 AM CDT Medtronic Solara Quad MIXING MACHINE FEEDER-P imp on 12/26/21 for [id number]. Andrew-EP/[facility]-Card - [facility] Chronic RA/RV Leads from 09/23/18. New LV Lead 12/26/21. Routine DDDR Pacemaker Remote. Transmission attached. Battery status: 2.90 V , 1.5 years remaining battery life to [place]. Stable lead impedances, pacing and sensing thresholds. Presenting rhythm: AP/BV AP- 68.3%, TOOL SUPERVISOR- 99.7% 1 AT/AF episodes noted, longest episode was > 99 hours and 59 minutes in duration, IEGM demonstrates AFib. AF [place] 11.1%. No Ventricular high rate episodes detected. Medications: warfarin, ASA 81 mg, metoprolol 25 mg See scanned report. Office pacemaker follow up: 04/29/25 [facility] remote f/u 01/28/25. Amadeo Pinon, [place] Called patient and informed him that I had reviewed his pacemaker report. Informed patient that the pacemaker was working appropriately and within normal limits. Informed patient that there was no significant chemical cell changer his previous reports. Patient activity has increased and when asked, the patient reports that he has been trying to walk more and he is doing more housework since his had a stroke. Informed patient that I would forward this report to Colette since he has a visit with her on 01/30/25. Patient verbalized understanding Kirill Lopez MD [facility] PRO CEDURES Final Result * (ABNORMAL) Protime-INR (12/30/2024 9:48 AM CDT) INR 2.7(H) JalousierLuis Erickson Comment: Reference Range 0.9-1.1 Moderate-intensity Warfarin Therapy 2.0-3.0 Higher-intensity Warfarin Therapy 3.0-4.0 PT 26.8(H) 9.0 - 11.5 sec CADFORCEKiki Erickson Comment: For additional information, please refer to http://education.Econotherm/faq/OTA873 (This link is being provided for informational/ educational purposes only.) Blood 12/30/2024 9:48 AM CDT 12/30/2024 9:49 AM CDT Narrative [facility] - 12/30/2024 5:33 PM CDT FASTING:NO FASTING: NO us Luis Ochoa MD LAB BLOOD ORDERABLES Fin al Result [facility] [address] [place] [address] * (ABNORMAL) Protime-INR (12/02/2024 9:34 AM CDT) Pathologist [facility] INR 2.1(H) JalousierLuis Erickson Comment: Reference Range 0.9-1.1 Moderate-intensity Warfarin Therapy 2.0-3.0 Higher-intensity Warfarin Therapy 3.0-4.0 PT 21.7(H) 9.0 - 11.5 sec CADFORCE-Luis Erickson Comment: For additional information, please refer to http://education.Econotherm/faq/HEN888 (This link is being provided for informational/ educational purposes only.) Blood 12/02/2024 9:34 AM CDT 12/02/2024 9:38 AM CDT Narrative [facility] - 12/02/2024 4:47 PM CDT FASTING:NO FASTING: NO Kirill Lopez MD LAB BLOOD ORDERABLES Fi nal Result [facility] [address] [place] [address] * POCT lipid panel (11/06/2022 3:10 PM CDT) Pathologist [facility] Cholesterol, POC 141 mg/dL HDL, POC 43 mg/dL Triglycerides, POC 179 mg/dL LDL Cholesterol POC 63 mg/dL Chol/HDL Ratio, POC 1.5 Non-HDL Cholesterol, POC 98 mg/dL Cholesterol Total, POC 141 mg/dL Capillary blood 11/06/2022 3 :10 PM CDT Anaya Conrad MD POINT OF CARE TEST ORDERABL ES Final Result * eGFR (09/24/2018 5:41 AM CDT) Pathologist [facility] eGFR 101 mL/min/1.[address] [facility] Comment: Interpretive Data Reference Interval Normal >/= 90 mL/min/1.73m2 Mildly decreased* 60 - 89 mL/min/1.73m2 Mildly to moderately decreased 45 - 59 mL/min/1.73m2 Moderately to severely decreased 30 - 44 mL/min/1.73m2 Severely decreased 15 - 29 mL/min/1.73m2 Kidney Failure < 15 mL/min/1.73m2 *Relative to young adult level If -[place] multiply value by 1.16. Estimated glomerular filtration [...] AM CDT 09/24/2018 6:35 AM CDT Narrative [facility] - 09/24/2018 7:04 AM CDT us Feliberto Morales MD LAB BLOOD ORDERABLES Fi nal Result Performing Organization Address [facility] Co de Phone Number [facility] [address] [place], [place] [phone] * (ABNORMAL) Hemoglobin A1c (07/22/2018 5:57 PM [employer]) Hgb A1C 6.8(H) 4.0 - 5.6 % [facility] Estimated Average Glucose 148 mg/dL [facility] Comment: The ADA recommends reporting an estimated Average Glucose (eAG) with all Hemoglobin A1c results using the equation derived from a study of 507 normal and diabetic adults. Minority populations were underrepresented and children were not included. (Diabetes Care 31:6448-8159, 2008). The eAG is not equivalent to a fasting glucose. Blood specimen (specimen) 07/22/2018 5:57 PM [employer] 07/22/2018 6:02 PM [employer] Narrative [facility] - 07/22/2018 6:36 PM [employer] CREWMAN us Luis Sánchez MD LAB BLOOD ORDERABLES Final Result Performing Organization Address [facility] Co de Phone Number [facility] [address] [place] [address] from Last 3 Months or Most Recently Relevant to Health Maintenance Insurance [facility] MEDIC[facility] Advance Directives For more information, please contact: [phone] * Full Code (Latest Code Status on File) Date Activated Date Inactivated Comments 09/20/2018 7:34 PM 09/24/2018 2:37 PM * Full Code Date Activated Date Inactivated Comments 07/29/2018 6:37 PM 09/20/2018 2:29 PM * Full Code Date Activated Date Inactivated Comments 07/23/2018 12:51 PM 07/27/2018 5:02 PM * Full Code Date Activated Date Inactivated Comments 07/22/2018 5:10 PM 07/23/2018 12:51 PM Care Teams Delicatessen Department Manager Relationship Specialty Start Date End Date Alan Chang DO [address] [place], [place] [phone] PCP - General Family Medicine 01/30/25 Elena Harvey MD [address] [facility] [address] [place] [address] Consulting Physician Cardiology 04/04/21
--- OUTSIDE RECORDS SUMMARY | 2025-02-11 15:17 | XMS_ITS | Clinical Summary ---
Author Organization [facility] Address [address] [place] [address] Care Team Providers Care Environmental Services Manager Name Role Phone Elena Harvey MD, Cami L MD Primary Care Provider [phone] Source Comments [facility],non-owned Affiliates and Associated Physician Practices is amultiple site organization consisting of ambulatory clinics and hospital sitesin [place], [place], [place] and [place]. This disclosure is being madepursuant to the Care Everywhere program and may not contain all information available regarding this patient. Last updated 18.[facility] Allergies Active Allergy Reactions Criticality Noted Date Comments Metformin Diarrhea Medium 04/16/2013 Hmg-Coa-R Inhibitors 10/03/2010 Medications * Be aware that medications may not be up to date on this document. Alwaysverify current medications with the patient. [place]-3 & [place]-6 Fish Oil CAPS Take by mouth. Active [...] 10/13/2018 Pacemaker 09/23/2018 Overview (01/28/2021): Medtronic DDD Kami MRI pacemaker implanted on 09/23/18 for Mobitz II. [place] - [facility] card Last Assessment & Plan: Normal pacemaker [...] (01/28/2021): CXR 6- Overview: CXR 6- Old [place] (myocardial infarction) 06/22/2014 Overview (01/28/2021): Dr Harvey [...] on 09/23/18 for Mobitz II. [place] - [facility] card Last Assessment & Plan: Pacemaker was interrogated today and is functioning normally. No atrial fibrillation was seen. He remains on warfarin because of his history of splenic infarct and postoperative atrial fibrillation. NOACs were cost prohibitive for him. Irritable bowel syndrome wit h both constipation and diarrhea 09/21/2018 01/28/2021 Bradycardia 09/20/2018 01/28/2021 Overview (01/28/2021): Overview: Added automatically from request for surgery [id number] Added automatically from request for surgery [id number] Paroxysmal atrial fibrillation 11/08/2017 08/06/2020 Overview (09/18/2019): [...] LURIA, FLUZONE TRIVALENT; 6MO+) (IIV3) 05/15/2012,05/03/2011,03/29/2010 Covid [employer] 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 Not on file Not on file Not [...] 10/04/2017, 04/06/2015 DIABETES RETINOPATHY SCREENING 11/11/2022 11/11/2020, 04/05/2020, 04/05/2020 (Done Outside Per Report), Additional history exists COVID-19 VACCINE ( season) [...] retinopathy Pure hypertriglyceridemia Coronary artery disease involving ramona coronary artery without angina pectoris, unspecified whether ramona or transplanted heart HEMOGLOBIN A1C Routine 01/31/2021 9:05 AM CDT Diabetes mellitus type 2 without retinopathy Pure hypertriglyceridemia Coronary artery disease involving ramona coronary artery without angina pectoris, unspecified whether ramona or transplanted heart HM DIABETES EYE EXAM [...] children. REPORT COMMENT: FASTING:YES Test Performed at: [facility] [address] [address] CHRISTINA PARRA DO,MPH Blood BLOOD SPECIMEN / Unknown 01/31/2021 9:05 AM CDT 01/31/2021 9:08 AM CDT us Taylor L Beltran MD LAB - CHEMISTRY ORDERABLES Fin al Result Performing Organization Address City/[facility]/ZIP Co mi Phone Number [facility] [address] [place] [address] * (ABNORMAL) COMPREHENSIVE METABOLIC PANEL (01/31/2021 9:05 [...] approximately 13% higher for people identified as -British. eGFR by MDRD 86 > OR = [...] 46 U/L [facility] Comment: Test Performed at: [facility] [address] [facility] [place] [address] CHRISTINA PARRA DO,MPH Blood BLOOD SPECIMEN / Unknown 01/31/2021 9:05 AM CDT 01/31/2021 9:08 AM CDT Taylor Beltran MD LAB - CHEMISTRY ORDERABLES Fin al Result [facility] [address] [place] [address] * PROSTATE SPECIFIC ANTIGEN SCREEN (01/31/2021 9:05 AM CDT) PSA 0.7 < OR = 4.0 ng/mL [facility] Comment: The total PSA value from this assay system is standardized against the WHO standard. The test result will be approximately 20% lower when compared to the equimolar-standardized total PSA (Francisco Jennifer). Comparison of serial PSA results should be interpreted with this fact in mind. This test was performed using the Siemens chemiluminescent method. Values obtained from different assay methods cannot be used interchangeably. PSA levels, regardless of value, should not be interpreted as absolute evidence of the presence or absence of disease. Test Performed at: [facility] [address] [place] [address] CHRISTINA PARRA DO,MPH Blood BLOOD SPECIMEN / Unknown 01/31/2021 9:05 AM CDT 01/31/2021 9:08 AM CDT us Taylor Beltran MD LAB - CHEMISTRY ORDERABLES Fin al Result Performing Organization Address [facility] de Phone Number [facility] [address] [place] [address] * DIABETES EYE EXAM (11/11/2020) us Scanned [...] 12:59 PM CDT Narrative Resulting Agency Comment [facility] [address] [place] [id number] us Mac Lopez MD LAB - URINE CHEMISTRY ORDERABLES Final Result [facility] INSURANCE BILL [address] [place] [address] from Last 3 Months or Most Recently Relevant to Health Maintenance Insurance MEDICARE [facility] AETNA MEDICARE ADV AETNA MEDICARE ADV SELF PAY NO INSURANCE Member Subscriber Plan / Payer (Ef fective for All Dates) Name:Velma Fuentes Member ID:Not on file Relation to Subscriber:Not on file Name:MACKVELMA Subscriber ID:Not on file Address: [address] [place] [address] Payer ID:Not on file Group ID:Not on file Type:Self Pay Address: [place], [place] AETNA MEDICARE ADV SELF PAY NO INSURANCE Member Subscriber Plan / Payer (Ef fective for All Dates) Name:MichaelscottVelma hare Member ID:Not on file Relation to Subscriber:Not on file Name:VELMA FUENTES Subscriber ID:Not on file Address: [address] [place] [address] Payer ID:Not on file Group ID:Not on file Type:Self Pay Address: [place], [place] * Guarantor: VELMA FUENTES Account Type Relation to Patient Date of Phone Billing Address Personal/Family [address] [place] [address] AETNA MEDICARE ADV SELF PAY NO INSURANCE Member Subscriber Plan / Payer (Ef fective for All Dates) Name:Velma Fuentes Member ID:Not on file Relation to Subscriber:Not on file Name:VELMA FUENTES Subscriber ID:Not on file Address: [address] [place] [address] [place] [address] Payer ID:Not on file Group ID:Not on file Type:Self Pay Address: [place], [place] Care Teams Environmental Services Manager Relationship Specialty [place] [address] [address] PCP - General Internal Medicine 02/02/20 Elena Harvey MD Bottom Painter Cardiology 10/03/17
--- OUTSIDE RECORDS SUMMARY | 2025-02-11 15:17 | XMS_ITS | Encounter Summary ---
Author Organization [facility] Address [address] [place] [address] Care Team Providers Care Route Sales Specialist Name Role Phone Mac Lopez MD Primary Care Provider [phone] Jennifer Lopez MD Primary Care Provider + Marilee Rutledge MD Primary Care Provider [phone] Taylor Beltran MD Primary Care Provider [phone] Elena Harvey MD Unavailable [phone] Fermin Marina MD Primary Care Provider [phone] Alan Chang DO Primary Care Provider [phone] Encounter Details Date Type Department Care Team (Late st Contact Info) Description 10/26/2017 Orders Only [facility] Information Management [address] [place] [address] Scanning, Provider Social History Tobacco Use Types Packs/Day Years Used Date Smoking Tobacco: Former Smokeless Tobacco: Former Alcohol Use Standard Drinks/Week Comments No 0 (1 standard drink = 0.6 oz pur e alcohol) Sex and Gender Information Value Date Recorded Sex Assigned at Not on file 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 Gender Identity Not on file Sexual Orientation Not on file documented as of this encounter Plan of Treatment Not on file documented as of this encounter Procedures Procedure Name Priority Date/Time Associated Diagnosis Comments CARDIOLOGY DOCUMENT SCAN 10/26/2017 documented in this encounter Results * Cardiology Document Scan (10/26/2017) Anatomical Region Laterality Modality Other Provider Scanning CV CARDIAC SERVICES PROCEDURES Final Result documented in this encounter Visit Diagnoses Not on filedocumented in this encounter Care Teams Route Sales Specialist Relationship Specialty Start Date End Date Mac Lopez MD [address] [facility] [address] [place] [address] PCP - General 09/15/16 10/31/17 Jennifer Lopez MD [address] [place] [address] PCP - General Internal Medicine 11/01/17 07/17/19 Marilee Rutledge MD [address] [place] [address] PCP - General Family Medicine 07/18/19 01/15/20 Taylor Beltran MD [address] [place] [address] PCP - General Internal Medicine 01/16/20 05/04/21 Fermin Marina MD [address] [place] [address] PCP - General Family Medicine 05/05/21 01/29/25 Alan Chang DO [address] [place] [address] PCP - General Family Medicine 01/30/25 Elena Harvey MD [address] [place] [address] Consulting Physician Cardiology 04/04/21 documented as of this encounter
--- OUTSIDE RECORDS SUMMARY | 2025-02-11 15:17 | XMS_ITS | Clinical Summary ---
Author Organization [facility] Address [address] [place] [address] Care Team Providers Care Sausage Cooker Name Role Phone Fermin Marina MD Primary Care Provider [phone] Allergies No known active allergies Social History [...] complete this topic Insurance AETNA Care Teams Sausage Cooker Relationship Specialty Start Date End Date Fermin Marina MD [address] [address] PCP - General FAMILY PRACTICE 12/17/21
== END 2025-02-11 15:12 | disposition home or self-care (01) ==
PROVIDERS: PCP Family Medicine; Visit Provider Nurse Practitioner Adult Health
DX: I65.23 Occlusion and stenosis of bilateral carotid arteries (principal); I69.892 Facial weakness following other cerebrovascular disease
CPT/HCPCS: 93880